=== PATIENT | male | born 1955 | race Caucasian/White ===

== ENCOUNTER 2018-01-25 22:42 | Inpatient (IN) ==
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
[2018-01-25] MEDS ORDERED: Diphtheria/Tetanus/Pertussis Vaccine Inj 0.5 ML Syringe IM ONE (23:04)
[2018-01-25] MEDS ORDERED: ceFAZolin 2 GM Premix Inj 2 GM/50 ML PIGGYBACK IV.SIG ONE (23:04)
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
[2018-01-25 23:25] LABS: Baso # (Auto) 0.1 th/mm3 (0.0-0.2); Baso % (Auto) 0.9 % (0.0-2.0); Eos # (Auto) 0.1 th/mm3 (0.0-0.4); Eos % (Auto) 1.3 % (0.0-4.0); Hematocrit 37.6 % (39.0-51.0); Hemoglobin 12.5 gm/dL (13.0-17.0); Lymph # (Auto) 3.8 th/mm3 (1.0-4.8); Lymph % (Auto) 37.6 % (9.0-44.0); Mean Corpuscular HGB Conc 33.4 % (32.0-36.0); Mean Corpuscular Hemoglobin 28.7 pg (27.0-34.0); Mean Platelet Volume 8.9 fL (7.0-11.0); Mono # (Auto) 0.8 th/mm3 (0.0-0.9); Mono % (Auto) 7.8 % (0.0-8.0); Neut # (Auto) 5.3 th/mm3 (1.8-7.7); Neut % (Auto) 52.4 % (16.0-70.0); Platelet Count 251 th/mm3 (150-450); Red Blood Count 4.37 mil/mm3 (4.50-5.90); Red Cell Distribution Width 13.3 % (11.6-17.2); White Blood Count 10.1 th/mm3 (4.0-11.0)
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
[2018-01-25] MEDS ORDERED: Morphine Inj 4 MG/ML Vial ONE (23:27)
[2018-01-25 23:32] LABS: Activated Partial Thrombo Time 22.3 sec (24.3-30.1); INR 1.2 Ratio; Prothrombin Time 11.7 sec (9.8-11.6)
[2018-01-25] MEDS ORDERED: Etomidate Inj 40 MG/20 ML Vial IV.PUSH ONE (23:39)
[2018-01-25] MEDS ORDERED: Succinylcholine Inj 200 MG/10 ML Vial ONE (23:39)
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
[2018-01-25] MEDS ORDERED: Atropine Inj 1 MG/10 ML Syringe ONE (23:43)
[2018-01-25] MEDS ORDERED: Etomidate Inj 20 MG/10 ML Ampul IV.PUSH ONE (23:45)
[2018-01-25] MEDS ORDERED: Succinylcholine Inj 200 MG/10 ML Vial IV.PUSH ONE (23:45)
[2018-01-25] MEDS ORDERED: Propofol Inj 500 MG/50 ML Vial ONE (23:48)
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
[2018-01-26] MEDS ORDERED: Morphine Inj 4 MG/ML Vial IV.PUSH SCH
[2018-01-26] MEDS ORDERED: Midazolam Inj 5 MG/ML 1 ML Vial IV.PUSH SCH
[2018-01-26] MEDS ORDERED: Lidocaine 1%/Epinephrine 1:100,000 Inj 30 ML Vial ONE (00:02)
[2018-01-26] MEDS ORDERED: Midazolam Inj 5 MG/ML 1 ML Vial ONE (00:06)
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
[2018-01-26] MEDS ORDERED: Sod Chloride 0.9% Inj 1,000 ML IV.CONT SCH (01:00)
[2018-01-26] MEDS: fentaNYL 10 mcg/mL Premix Drip 2,500 MCG/250 ML BAG IV.SIG PRN ×2 (01:08→21:19)
[2018-01-26] MEDS: Propofol 1000 mg/100 ml Inj 1,000 MG/100 ML BOTTLE IV.CONT PRN ×2 (01:08→08:35)
[2018-01-26] MEDS: Sod Chloride 0.9% Inj 1,000 ML IV.SIG SCH ×3 (01:16→22:10)
[2018-01-26 01:39] LABS: Bilirubin,Urine Negative (Negative); Clarity,Urine Clear (Clear); Color,Urine Yellow (Yellw/Straw); Glucose,Urine (UA) 50 mg/dL (Negative); Hyaline Casts,Urine 3 /lpf (0-3); Leukocyte Esterase,Urine Negative (Negative); Mucus,Urine Few /lpf (Occasional); Nitrite,Urine Negative (Negative); Specific Gravity,Urine 1.027 (1.002-1.035)
[2018-01-26 01:40] LABS: Amphetamine Screen,Urine Neg (Neg); Barbiturate Screen,Urine Neg (Neg); Cannabinoid Screen,Urine Neg (Neg); Cocaine Screen,Urine Pos (Neg)
[2018-01-26 01:47] LABS: Opiate Screen,Urine Pos (Neg)
[2018-01-26] MEDS: Pantoprazole Inj 40 MG Vial IV.PUSH SCH (01:50)
[2018-01-26 02:15] LABS: ABG Base Excess -0.6 mmol/L (-2-2); ABG PCO2 39 mmHg (38-42); ABG PO2 209 mmHg (61-120)
[2018-01-26] MEDS: Multivitamin Inj 10 ML, Thiamine Inj 100 MG, Folic Acid Inj 1 MG in Sodium Chlor 0.9% I... IV.SIG SCH (02:28)
[2018-01-26] MEDS ORDERED: Chlorhexidine Gluconate 2% 1 Pack (2 Cloths) TOPICAL PRN (04:00)
[2018-01-26] MEDS: Chlorhexidine Gluconate 2% 1 Pack (2 Cloths) TOPICAL SCH (05:25)
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
[2018-01-26] MEDS: Senna/Docusate Sodium 8.6/50 MG Tablet PO SCH ×2 (09:57→21:07)
[2018-01-26] MEDS: Chlorhexidine 0.12% Oral Kit 15 ML UDC OROPHARYNG SCH ×2 (09:57→21:07)
[2018-01-26] MEDS ORDERED: levETIRAcetam 500mg/100mL Inj 100 ML IV.SIG SCH (12:00)
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
--- NOTE | 2018-01-26 17:13 | P.PNNS ---
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 Cervical Collar Type [place] J Action Taken for Backboard C-Spine Maintained Facundo Scale Assessment Start: 01/25/18 23: 37 Freq: DOMINIC.DAILY@799&1999 Status: Active Protocol: Document 01/26/18 08:00 JL (Rec: 01/26/18 09:51 JL [id number]) Facundo Scale - For Predicting Pressure Sore Risk Sensory Perception Completely Limited Moisture Rarely Moist Activity Bedfast Mobililty Completely Immobile Nutrition Probably Inadequate Friction and Shear Potential Problem Total Score 11 Facundo Score Interpretation 16 or <16 At Risk for Skin Breakdown CC-Cardiovascular Assessment Start: 01/26/18 01: 58 Freq: DOMINIC.Q2H.E Status: Active Protocol: Document 01/26/18 00:30 KF (Rec: 01/26/18 02:20 KF [id number]) Cardiovascular Assessment Cardiovascular - Within Defined WDP Except Parameters Heart Sounds S1 & S2/Normal Bilateral Dorsalis Pedis Strength Normal Assessment Method Palpation Jugular Vein Distention No Capillary Refill < 2 Seconds Document 01/26/18 00:45 KF (Rec: 01/26/18 02:20 KF [id number]) Cardiovascular Assessment Cardiovascular - Within Defined WDP Except Parameters Heart Sounds S1 & S2/Normal Bilateral Dorsalis Pedis Strength Normal Assessment Method Palpation Jugular Vein Distention No Document 01/26/18 02:00 KF (Rec: 01/26/18 02:22 KF [id number]) Cardiovascular Assessment Cardiovascular - Within Defined WDP Except Parameters Heart Sounds S1 & S2/Normal Bilateral Dorsalis Pedis Strength Normal Assessment Method Palpation Jugular Vein Distention No Capillary Refill < 2 Seconds Document 01/26/18 04:00 MARY (Rec: 01/26/18 04:59 MARY [id number]) Cardiovascular Assessment Cardiovascular - Within Defined WDP Parameters Heart Sounds Regular Bilateral Dorsalis Pedis Strength Normal Assessment Method Palpation Jugular Vein Distention No Capillary Refill < 2 Seconds Document 01/26/18 06:00 KF (Rec: 01/26/18 06:03 KF [id number]) Cardiovascular Assessment Cardiovascular - Within Defined WDP Parameters Heart Sounds Regular Bilateral Dorsalis Pedis Strength Normal Assessment Method Palpation Jugular Vein Distention No Capillary Refill < 2 Seconds Document 01/26/18 08:00 JL (Rec: 01/26/18 09:51 JL [id number]) Cardiovascular Assessment Cardiovascular - Within Defined WDP Parameters Heart Sounds Regular Bilateral Dorsalis Pedis Strength Normal Assessment Method Palpation Jugular Vein Distention No Capillary Refill < 2 Seconds Document 01/26/18 10:00 JL (Rec: 01/26/18 10:23 JL [id number]) Cardiovascular Assessment Cardiovascular - Within Defined WDP Parameters Heart Sounds Regular Bilateral Dorsalis Pedis Strength Normal Assessment Method Palpation Jugular Vein Distention No Capillary Refill < 2 Seconds Document 01/26/18 12:00 LJN (Rec: 01/26/18 19:13 LJ [id number]) Cardiovascular Assessment Cardiovascular - Within Defined WDP Parameters Heart Sounds Regular Bilateral Dorsalis Pedis Strength Normal Assessment Method Palpation Jugular Vein Distention No Capillary Refill < 2 Seconds Document 01/26/18 14:00 LJN (Rec: 01/26/18 19:31 LJ [id number]) Cardiovascular Assessment Cardiovascular - Within Defined WDP Parameters Heart Sounds Regular Bilateral Dorsalis Pedis Strength Normal Assessment Method Palpation Jugular Vein Distention No Capillary Refill < 2 Seconds Document 01/26/18 16:00 LJN (Rec: 01/26/18 19:31 LJ [id number]) Cardiovascular Assessment Cardiovascular - Within Defined WDP Parameters Heart Sounds Regular Bilateral Dorsalis Pedis Strength Normal Assessment Method Palpation Jugular Vein Distention No Capillary Refill < 2 Seconds Document 01/26/18 18:00 LJN (Rec: 01/26/18 19:31 [facility] [id number]) Cardiovascular Assessment Cardiovascular - Within Defined WDP Parameters Heart Sounds Regular Bilateral Dorsalis Pedis Strength Normal Assessment Method Palpation Jugular Vein Distention No Capillary Refill < 2 Seconds Document 01/26/18 20:00 MARY (Rec: 01/26/18 21:56 MARY [id number]) Cardiovascular Assessment Cardiovascular - Within Defined WDP Parameters Heart Sounds Regular Bilateral Dorsalis Pedis Strength Normal Assessment Method Palpation Jugular Vein Distention No Capillary Refill < 2 Seconds CC-Gastrointestinal Assessment Start: 01/26/18 01: 58 Freq: DOMINIC.Q2H.E Status: Active Protocol: Document 01/26/18 00:30 KF (Rec: 01/26/18 02:20 KF [id number]) Gastrointestinal Assessment Gastroinstestinal Physical Assessment WDP Bowel Sounds RLQ: Active RUQ: Active LUQ: Active LLQ: Active Document 01/26/18 00:45 KF (Rec: 01/26/18 02:20 KF [id number]) Gastrointestinal Assessment Gastroinstestinal Physical Assessment WDP Except Bowel Sounds RLQ: Active RUQ: Active LUQ: Active LLQ: Active Document 01/26/18 02:00 KF (Rec: 01/26/18 02:22 KF [id number]) Gastrointestinal Assessment Gastroinstestinal Physical Assessment WDP Except Bowel Sounds RLQ: Active RUQ: Active LUQ: Active LLQ: Active Document 01/26/18 04:00 MARY (Rec: 01/26/18 05:00 MARY [id number]) Gastrointestinal Assessment Gastroinstestinal Physical Assessment WDP Bowel Sounds RLQ: Hyperactive RUQ: Hyperactive LUQ: Hyperactive LLQ: Hyperactive Bowel Pattern No Bowel Movement Nausea/Vomiting Presence None Document 01/26/18 06:00 KF (Rec: 01/26/18 06:03 KF [id number]) Gastrointestinal Assessment Gastroinstestinal Physical Assessment WDP Bowel Sounds RLQ: Active Hyperactive RUQ: Active Hyperactive LUQ: Active Hyperactive LLQ: Active Hyperactive Bowel Pattern No Bowel Movement Nausea/Vomiting Presence None Document 01/26/18 08:00 JL (Rec: 01/26/18 09:51 JL [id number]) Gastrointestinal Assessment Gastroinstestinal Physical Assessment WDP Bowel Sounds RLQ: Active RUQ: Active LUQ: Active LLQ: Active Abdomen Description Flat Non-Tender Bowel Pattern No Bowel Movement Nausea/Vomiting Presence None Document 01/26/18 10:00 JL (Rec: 01/26/18 10:23 JL [id number]) Gastrointestinal Assessment Gastroinstestinal Physical Assessment WDP Bowel Sounds RLQ: Active RUQ: Active LUQ: Active LLQ: Active Abdomen Description Flat Non-Tender Bowel Pattern No Bowel Movement Nausea/Vomiting Presence None Document 01/26/18 12:00 LJN (Rec: 01/26/18 19:13 LJN [id number]) Gastrointestinal Assessment Gastroinstestinal Physical Assessment WDP Bowel Sounds RLQ: Active Hyperactive RUQ: Active Hyperactive LUQ: Active Hyperactive LLQ: Active Hyperactive Abdomen Description Flat Non-Tender Bowel Pattern No Bowel Movement Nausea/Vomiting Presence None Document 01/26/18 14:00 LJN (Rec: 01/26/18 19:31 LJN [id number]) Gastrointestinal Assessment Gastroinstestinal Physical Assessment WDP Bowel Sounds RLQ: Active Hyperactive RUQ: Active Hyperactive LUQ: Active Hyperactive LLQ: Active Hyperactive Abdomen Description Flat Non-Tender Bowel Pattern No Bowel Movement Nausea/Vomiting Presence None Document 01/26/18 16:00 LJN (Rec: 01/26/18 19:31 LJ [id number]) Gastrointestinal Assessment Gastroinstestinal Physical Assessment WDP Bowel Sounds RLQ: Active Hyperactive RUQ: Active Hyperactive LUQ: Active Hyperactive LLQ: Active Hyperactive Abdomen Description Flat Non-Tender Bowel Pattern No Bowel Movement Nausea/Vomiting Presence None Document 01/26/18 18:00 LJN (Rec: 01/26/18 19:31 LJN [id number]) Gastrointestinal Assessment Gastroinstestinal Physical Assessment WDP Bowel Sounds RLQ: Active Hyperactive RUQ: Active Hyperactive LUQ: Active Hyperactive LLQ: Active Hyperactive Abdomen Description Flat Non-Tender Bowel Pattern No Bowel Movement Nausea/Vomiting Presence None Document 01/26/18 20:00 MARY (Rec: 01/26/18 21:56 MARY [id number]) Gastrointestinal Assessment Gastroinstestinal Physical Assessment WDP Bowel Sounds RLQ: Active RUQ: Active LUQ: Active LLQ: Active Abdomen Description Flat Non-Tender Bowel Pattern No Bowel Movement Nausea/Vomiting Presence None CC-Genitourinary Assessment Start: 01/26/18 01: 58 Freq: DOMINIC.Q2H.E Status: Active Protocol: Document 01/26/18 00:30 KF (Rec: 01/26/18 02:20 KF [id number]) Genitourinary Assessment Genitourinary - Within Defined WDP Parameters Document 01/26/18 00:45 KF (Rec: 01/26/18 02:20 KF [id number]) Genitourinary Assessment Genitourinary - Within Defined WDP Except Parameters Voiding Method Indwelling Catheter Urine Collection Device Bladder Distention None Urine Characteristics Clear Urine Color Yellow Document 01/26/18 02:00 KF (Rec: 01/26/18 02:22 KF [id number]) Genitourinary Assessment Genitourinary - Within Defined WDP Except Parameters Voiding Method Indwelling Catheter Urine Collection Device Bladder Distention None Urine Characteristics Clear Urine Color Yellow Document 01/26/18 04:00 MARY (Rec: 01/26/18 05:40 MARY [id number]) Genitourinary Assessment Genitourinary - Within Defined WDP Except Parameters Voiding Method Indwelling Catheter Urine Collection Device Bladder Distention None Urine Characteristics Clear Urine Color Yellow Document 01/26/18 06:00 KF (Rec: 01/26/18 06:03 KF [id number]) Genitourinary Assessment Genitourinary - Within Defined WDP Except Parameters Voiding Method Indwelling Catheter Urine Collection Device Bladder Distention None Urine Characteristics Clear Urine Color Yellow Document 01/26/18 08:00 JL (Rec: 01/26/18 09:51 JL [id number]) Genitourinary Assessment Genitourinary - Within Defined WDP Except Parameters Voiding Method Indwelling Catheter Urine Collection Device Bladder Distention None Urine Characteristics Clear Urine Color Yellow Document 01/26/18 10:00 JL (Rec: 01/26/18 10:23 JL [id number]) Genitourinary Assessment Genitourinary - Within Defined WDP Except Parameters Voiding Method Indwelling Catheter Urine Collection Device Bladder Distention None Urine Characteristics Clear Urine Color Yellow Document 01/26/18 12:00 LJN (Rec: 01/26/18 19:13 LJN [id number]) Genitourinary Assessment Genitourinary - Within Defined WDP Except Parameters Voiding Method Indwelling Catheter Urine Collection Device Bladder Distention None Urine Characteristics Clear Urine Color Yellow Document 01/26/18 14:00 LJN (Rec: 01/26/18 19:31 LJN [id number]) Genitourinary Assessment Genitourinary - Within Defined WDP Except Parameters Voiding Method Indwelling Catheter Urine Collection Device Bladder Distention None Urine Characteristics Clear Urine Color Yellow Document 01/26/18 16:00 LJN (Rec: 01/26/18 19:31 LJN [id number]) Genitourinary Assessment Genitourinary - Within Defined WDP Except Parameters Voiding Method Indwelling Catheter Urine Collection Device Bladder Distention None Urine Characteristics Clear Urine Color Yellow Document 01/26/18 18:00 LJN (Rec: 01/26/18 19:31 LJN [id number]) Genitourinary Assessment Genitourinary - Within Defined WDP Except Parameters Voiding Method Indwelling Catheter Urine Collection Device Bladder Distention None Urine Characteristics Clear Urine Color Yellow Document 01/26/18 20:00 MARY (Rec: 01/26/18 21:56 MARY [id number]) Genitourinary Assessment Genitourinary - Within Defined WDP Except Parameters Voiding Method Indwelling Catheter Urine Collection Device Bladder Distention None Urine Characteristics Cloudy Urine Color Dark Yellow CC-HEENT Assessment Start: 01/26/18 01: 58 Freq: DOMINIC.Q2H.E Status: Active Protocol: Document 01/26/18 00:30 KF (Rec: 01/26/18 02:20 KF [id number]) HEENT Assessment HEENT - Within Defined Parameters WDP Except Signs & Symptoms Head/Facial Injury Neck Discomfort Swallowing Difficulty Head & Neck Movement Limited ROM Pain with Movement Mucous Membranes Drooling Teeth Condition Broken Tooth/Teeth Decayed Tooth/Teeth Document 01/26/18 00:45 KF (Rec: 01/26/18 02:20 KF [id number]) HEENT Assessment HEENT - Within Defined Parameters WDP Except Signs & Symptoms Head/Facial Injury Head & Neck Movement Limited ROM Document 01/26/18 02:00 KF (Rec: 01/26/18 02:22 KF [id number]) HEENT Assessment HEENT - Within Defined Parameters WDP Except Signs & Symptoms Head/Facial Injury Head & Neck Movement Limited ROM Mucous Membranes Drooling Teeth Condition Broken Tooth/Teeth Decayed Tooth/Teeth Document 01/26/18 06:00 KF (Rec: 01/26/18 06:03 KF [id number]) HEENT Assessment HEENT - Within Defined Parameters WDP Except Signs & Symptoms Head/Facial Injury Head & Neck Movement Limited ROM Teeth Condition Broken Tooth/Teeth Decayed Tooth/Teeth Document 01/26/18 08:00 JL (Rec: 01/26/18 09:51 JL [id number]) HEENT Assessment HEENT - Within Defined Parameters WDP Except Signs & Symptoms Head/Facial Injury Head & Neck Movement Limited ROM Teeth Condition Broken Tooth/Teeth Decayed Tooth/Teeth Document 01/26/18 10:00 JL (Rec: 01/26/18 10:23 JL [id number]) HEENT Assessment HEENT - Within Defined Parameters WDP Except Signs & Symptoms Head/Facial Injury Head & Neck Movement Limited ROM Teeth Condition Broken Tooth/Teeth Decayed Tooth/Teeth Document 01/26/18 12:00 LJN (Rec: 01/26/18 19:13 LJN [id number]) HEENT Assessment HEENT - Within Defined Parameters WDP Except Signs & Symptoms Head/Facial Injury Head & Neck Movement Limited ROM Mucous Membranes Drooling Teeth Condition Broken Tooth/Teeth Decayed Tooth/Teeth Document 01/26/18 14:00 TREE (Rec: 01/26/18 19:31 LJN [id number]) HEENT Assessment HEENT - Within Defined Parameters WDP Except Signs & Symptoms Head/Facial Injury Head & Neck Movement Limited ROM Mucous Membranes Drooling Teeth Condition Broken Tooth/Teeth Decayed Tooth/Teeth Document 01/26/18 16:00 LJN (Rec: 01/26/18 19:31 LJN [id number]) HEENT Assessment HEENT - Within Defined Parameters WDP Except Signs & Symptoms Head/Facial Injury Head & Neck Movement Limited ROM Mucous Membranes Drooling Teeth Condition Broken Tooth/Teeth Decayed Tooth/Teeth Document 01/26/18 18:00 LJN (Rec: 01/26/18 19:31 [facility] [id number]) HEENT Assessment HEENT - Within Defined Parameters WDP Except Signs & Symptoms Head/Facial Injury Head & Neck Movement Limited ROM Mucous Membranes Drooling Teeth Condition Broken Tooth/Teeth Decayed Tooth/Teeth Document 01/26/18 20:00 MARY (Rec: 01/26/18 21:56 MARY [id number]) HEENT Assessment HEENT - Within Defined Parameters WDP Except Signs & Symptoms Head/Facial Injury Head & Neck Movement Limited ROM Mucous Membranes Moist [place] CC-Integumentary Assessment Start: 01/26/18 01: 58 Freq: DOMINIC.Q2H.E Status: Active Protocol: Document 01/26/18 00:45 KF (Rec: 01/26/18 02:20 KF [id number]) Integumentary Assessment Integumentary - Within Defined WDP Except Parameters Temperature Warm Moisture Moist Texture Intact Fragile Color [place] Normal for Ethnicity Right Hip Wound Type Abrasion Left Elbow Wound Type Abrasion Right Forehead Wound Type Traumatic Wound Midline Chin Wound Type Traumatic Wound Right Neck Wound Type Traumatic Wound Document 01/26/18 02:00 KF (Rec: 01/26/18 02:22 KF [id number]) Integumentary Assessment Integumentary - Within Defined WDP Except Parameters Temperature Warm Moisture Moist Texture Intact Fragile Color [place] Normal for Ethnicity Right Hip Wound Type Abrasion Left Elbow Wound Type Abrasion Right Forehead Wound Type Traumatic Wound Midline Chin Wound Type Traumatic Wound Right Neck Wound Type Traumatic Wound Document 01/26/18 06:00 KF (Rec: 01/26/18 06:03 KF [id number]) Integumentary Assessment Integumentary - Within Defined WDP Except Parameters Temperature Warm Moisture Moist Texture Intact Fragile Color [place] Normal for Ethnicity Right Hip Wound Type Abrasion Left Elbow Wound Type Abrasion Right Forehead Wound Type Traumatic Wound Midline Chin Wound Type Traumatic Wound Right Neck Wound Type Traumatic Wound Document 01/26/18 08:00 JL (Rec: 01/26/18 09:51 JL [id number]) Integumentary Assessment Integumentary - Within Defined WDP Except Parameters Temperature Warm Moisture Moist Turgor Elastic Texture Intact Fragile Color Normal for Ethnicity Left Flank Wound Type Abrasion Wound Dressing Status Open to Air Right Hip Wound Type Abrasion Left Elbow Wound Type Abrasion Right Forehead Wound Type Traumatic Wound Midline Chin Wound Type Traumatic Wound Wound Dressing Status Reinforced Right Neck Wound Type Traumatic Wound Wound Dressing Status Open to Air Document 01/26/18 10:00 JL (Rec: 01/26/18 10:23 JL [id number]) Integumentary Assessment Integumentary - Within Defined WDP Except Parameters Temperature Warm Moisture Moist Turgor Elastic Texture Intact Fragile Color Normal for Ethnicity Left Flank Wound Type Abrasion Wound Dressing Status Open to Air Left Elbow Wound Type Abrasion Right Forehead Wound Type Traumatic Wound Midline Chin Wound Type Traumatic Wound Wound Dressing Status Reinforced Right Neck Wound Type Traumatic Wound Wound Dressing Status Open to Air Document 01/26/18 12:00 NADIRAN (Rec: 01/26/18 19:13 NADIRAN [id number]) Integumentary Assessment Integumentary - Within Defined WDP Except Parameters Temperature Warm Moisture Moist Turgor Elastic Texture Intact Fragile Color Normal for Ethnicity Left Flank Wound Type Abrasion Wound Dressing Status Open to Air Left Elbow Wound Type Abrasion Right Forehead Wound Type Traumatic Wound Midline Chin Wound Type Traumatic Wound Wound Dressing Status Reinforced Right Neck Wound Type Traumatic Wound Wound Dressing Status Open to Air 01/26/18 19:02 Nurse Note by Asia Denney Multiple areas of abrasions and lacerations cleaned and open to air. No drainage noted. Initialized on 01/26/18 19:02 - END OF NOTE Document 01/26/18 14:00 LJMonika (Rec: 01/26/18 19:31 TREE [id number]) Integumentary Assessment Integumentary - Within Defined WDP Except Parameters Temperature Warm Moisture Moist Turgor Elastic Texture Intact Fragile Color Normal for Ethnicity Left Flank Wound Type Abrasion Wound Dressing Status Open to Air Left Elbow Wound Type Abrasion Right Forehead Wound Type Traumatic Wound Midline Chin Wound Type Traumatic Wound Wound Dressing Status Reinforced Right Neck Wound Type Traumatic Wound Wound Dressing Status Open to Air Document 01/26/18 16:00 LJN (Rec: 01/26/18 19:31 LJN [id number]) Integumentary Assessment Integumentary - Within Defined WDP Except Parameters Temperature Warm Moisture Moist Turgor Elastic Texture Intact Fragile Color Normal for Ethnicity Left Flank Wound Type Abrasion Wound Dressing Status Open to Air Left Elbow Wound Type Abrasion Right Forehead Wound Type Traumatic Wound Midline Chin Wound Type Traumatic Wound Wound Dressing Status Reinforced Right Neck Wound Type Traumatic Wound Wound Dressing Status Open to Air Document 01/26/18 18:00 LJN (Rec: 01/26/18 19:31 LJN [id number]) Integumentary Assessment Integumentary - Within Defined WDP Except Parameters Temperature Warm Moisture Moist Turgor Elastic Texture Intact Fragile Color Normal for Ethnicity Left Flank Wound Type Abrasion Wound Dressing Status Open to Air Left Elbow Wound Type Abrasion Right Forehead Wound Type Traumatic Wound Midline Chin Wound Type Traumatic Wound Wound Dressing Status Reinforced Right Neck Wound Type Traumatic Wound Wound Dressing Status Open to Air Document 01/26/18 20:00 MARY (Rec: 01/26/18 21:56 MARY [id number]) Integumentary Assessment Integumentary - Within Defined WDP Except Parameters Temperature Warm Moisture Moist Turgor Elastic Color [place] Left Flank Wound Type Abrasion Wound Dressing Status Open to Air Left Elbow Wound Type Abrasion Right Forehead Wound Type Traumatic Wound Midline Chin Wound Type Traumatic Wound Wound Dressing Status Dry & Intact Right Neck Wound Type Traumatic Wound Wound Dressing Status Open to Air CC-Musculoskeletal Assessment Start: 01/26/18 01: 58 Freq: DOMINIC.Q2H.E Status: Active Protocol: Document 01/26/18 00:45 KF (Rec: 01/26/18 02:20 KF [id number]) Musculoskeletal Assessment Musculoskeletal - Within Defined WDP Except Parameter Document 01/26/18 02:00 KF (Rec: 01/26/18 02:22 KF [id number]) Musculoskeletal Assessment Musculoskeletal - Within Defined WDP Except Parameter Document 01/26/18 06:00 KF (Rec: 01/26/18 06:03 KF [id number]) Musculoskeletal Assessment Musculoskeletal - Within Defined WDP Except Parameter Document 01/26/18 08:00 JL (Rec: 01/26/18 09:51 JL [id number]) Musculoskeletal Assessment Musculoskeletal - Within Defined Unable to Assess Parameter Document 01/26/18 10:00 JL (Rec: 01/26/18 10:23 JL [id number]) Musculoskeletal Assessment Musculoskeletal - Within Defined Unable to Assess Parameter Document 01/26/18 12:00 LJN (Rec: 01/26/18 19:13 LJN [id number]) Musculoskeletal Assessment Musculoskeletal - Within Defined WDP Parameter Document 01/26/18 14:00 LJN (Rec: 01/26/18 19:31 LJN [id number]) Musculoskeletal Assessment Musculoskeletal - Within Defined WDP Parameter Document 01/26/18 16:00 LJN (Rec: 01/26/18 19:31 LJN [id number]) Musculoskeletal Assessment Musculoskeletal - Within Defined WDP Parameter Document 01/26/18 18:00 LJN (Rec: 01/26/18 19:31 LJN [id number]) Musculoskeletal Assessment Musculoskeletal - Within Defined WDP Parameter Document 01/26/18 20:00 MARY (Rec: 01/26/18 21:56 MARY [id number]) Musculoskeletal Assessment Musculoskeletal - Within Defined WDP Parameter CC-Neurological Assessment Start: 01/26/18 01: 58 Freq: DOMINIC.Q2H.E Status: Active Protocol: Document 01/26/18 00:30 KF (Rec: 01/26/18 02:20 KF [id number]) Neurological Assessment Neurological - Within Defined Parameters WDP Except Eye Opening Spontaneous Verbal Response Words Motor Response Localizing [place] Coma Scale Total 12 Level of Consciousness Stuporous Arousable To Verbal Noxious Patient Orientation Person Comprehension Ability Moderate Impairment Speech Clarity Garbled Fluidity of Speech Difficulty Finding Words Speech Pattern Poor Articulation Tongue Position (CN XII) Midline Bilateral Shape Round Size (mm) 1 Reaction Constricted Right Upper Extremity Neuro Movement Assessment Withdraws to Pain Left Upper Extremity Neuro Movement Assessment Localizes to Pain Bilateral Lower Extremity Neuro Movement Assessment To Command Spontaneously Purposeful Right Upper Extremity Strength 1 Tone Flaccid Left Upper Extremity Strength 2 Tone Flaccid Bilateral Lower Extremity Strength 5 Tone Normal Upper Extremity Drift Bilateral Corneal Reflex Present Bilateral Cough Reflex Present Gag Reflex Present Babinski Reflex Present Bilateral Document 01/26/18 00:45 KF (Rec: 01/26/18 02:20 KF [id number]) Neurological Assessment Neurological - Within Defined Parameters WDP Except Eye Opening None Verbal Response None Motor Response Localizing [place] Coma Scale Total 7 Level of Consciousness Sedated Arousable To Deep Tactile Comprehension Ability No Impairment Speech Clarity Artificially ventilated Tongue Position (CN XII) Midline Bilateral Shape Round Size (mm) 1 Reaction Constricted Bilateral Lower Extremity Neuro Movement Assessment To Command Spontaneously Purposeful Bilateral Upper Extremity Neuro Movement Assessment Localizes to Pain Right Upper Extremity Strength 1 Tone Flaccid Left Upper Extremity Strength 1 Tone Flaccid Bilateral Lower Extremity Strength 2 Tone Normal Upper Extremity Drift Bilateral Corneal Reflex Present Bilateral Gag Reflex Present Babinski Reflex Present Bilateral Document 01/26/18 02:00 KF (Rec: 01/26/18 02:22 KF [id number]) Neurological Assessment Neurological - Within Defined Parameters WDP Except Eye Opening None Verbal Response None Motor Response Localizing [place] Coma Scale Total 7 Level of Consciousness Sedated Arousable To Deep Tactile Patient Orientation Person Comprehension Ability No Impairment Speech Clarity Artificially ventilated Speech Pattern Artificially Ventilated Tongue Position (CN XII) Midline Bilateral Shape Round Size (mm) 1 Reaction Constricted Right Upper Extremity Neuro Movement Assessment None Left Upper Extremity Neuro Movement Assessment Withdraws to Pain Bilateral Lower Extremity Neuro Movement Assessment Withdraws to Pain Right Upper Extremity Strength 1 Tone Flaccid Left Upper Extremity Strength 1 Tone Flaccid Bilateral Lower Extremity Strength 2 Tone Normal Upper Extremity Drift Bilateral Corneal Reflex Present Bilateral Cough Reflex Present Gag Reflex Present Babinski Reflex Present Bilateral Document 01/26/18 06:00 KF (Rec: 01/26/18 06:03 KF [id number]) Neurological Assessment Neurological - Within Defined Parameters WDP Except Eye Opening None Verbal Response None Motor Response Localizing [place] Coma Scale Total 7 Level of Consciousness Sedated Arousable To Deep Tactile Patient Orientation Unable to Assess Comprehension Ability No Impairment Speech Clarity Artificially ventilated Speech Pattern Artificially Ventilated Tongue Position (CN XII) Midline Bilateral Shape Round Size (mm) 2 Reaction Questionable Right Upper Extremity Neuro Movement Assessment None Left Upper Extremity Neuro Movement Assessment None Bilateral Lower Extremity Neuro Movement Assessment Localizes to Pain Right Upper Extremity Strength 0 Tone Flaccid Left Upper Extremity Strength 0 Tone Flaccid Bilateral Lower Extremity Strength 3 Tone Normal Upper Extremity Drift Bilateral Corneal Reflex Present Bilateral Cough Reflex Present Gag Reflex Present Babinski Reflex Present Bilateral Document 01/26/18 08:00 JL (Rec: 01/26/18 09:51 JL [id number]) Neurological Assessment Neurological - Within Defined Parameters WDP Except Eye Opening None Verbal Response None Motor Response Localizing Tamie Coma Scale Total 7 Level of Consciousness Sedated Arousable To Deep Tactile Patient Orientation Unable to Assess Comprehension Ability No Impairment Speech Clarity Artificially ventilated Speech Pattern Artificially Ventilated Bilateral Shape Round Size (mm) 2 Reaction Questionable Right Upper Extremity Neuro Movement Assessment None Left Upper Extremity Neuro Movement Assessment None Bilateral Lower Extremity Neuro Movement Assessment Spontaneously Localizes to Pain Right Upper Extremity Strength 0 Tone Flaccid Left Upper Extremity Strength 0 Tone Flaccid Bilateral Lower Extremity Strength 3 Tone Normal Gag Reflex Present Document 01/26/18 10:00 JL (Rec: 01/26/18 10:23 JL [id number]) Neurological Assessment Neurological - Within Defined Parameters WDP Except Eye Opening None Verbal Response None Motor Response Localizing Tamie Coma Scale Total 7 Level of Consciousness Sedated Arousable To Deep Tactile Patient Orientation Unable to Assess Comprehension Ability Severe Impairment Speech Clarity Artificially ventilated Speech Pattern Artificially Ventilated Bilateral Shape Round Size (mm) 2 Reaction Questionable Right Upper Extremity Neuro Movement Assessment None Left Upper Extremity Neuro Movement Assessment None Bilateral Lower Extremity Neuro Movement Assessment Spontaneously Localizes to Pain Right Upper Extremity Strength 0 Tone Flaccid Left Upper Extremity Strength 0 Tone Flaccid Bilateral Lower Extremity Strength 3 Tone Normal Upper Extremity Drift Bilateral Gag Reflex Present Document 01/26/18 12:00 LJN (Rec: 01/26/18 19:13 N [id number]) Neurological Assessment Neurological - Within Defined Parameters WDP Except Eye Opening To sound Verbal Response None Motor Response Obey commands [place] Coma Scale Total 10 Level of Consciousness Alert Arousable To Verbal Patient Orientation Unable to Assess Comprehension Ability Mild Impairment Speech Clarity Artificially ventilated Fluidity of Speech Difficulty Finding Words Speech Pattern Artificially Ventilated Tongue Position (CN XII) Midline Bilateral Shape Round Size (mm) 2 Reaction Questionable Right Upper Extremity Neuro Movement Assessment To Command Left Upper Extremity Neuro Movement Assessment To Command Bilateral Lower Extremity Neuro Movement Assessment To Command Spontaneously Right Upper Extremity Strength 0 Tone Flaccid Left Upper Extremity Strength 3 Tone Normal Bilateral Lower Extremity Strength 3 Tone Normal Upper Extremity Drift Bilateral Corneal Reflex Present Bilateral Cough Reflex Present Gag Reflex Present Babinski Reflex Present Bilateral Document 01/26/18 14:00 LJN (Rec: 01/26/18 19:31 LJN [id number]) Neurological Assessment Neurological - Within Defined Parameters WDP Except Eye Opening To sound Verbal Response None Motor Response Obey commands Tamie Coma Scale Total 10 Level of Consciousness Alert Arousable To Verbal Patient Orientation Unable to Assess Comprehension Ability Mild Impairment Speech Clarity Artificially ventilated Fluidity of Speech Difficulty Finding Words Speech Pattern Artificially Ventilated Tongue Position (CN XII) Midline Bilateral Shape Round Size (mm) 2 Reaction Questionable Right Upper Extremity Neuro Movement Assessment To Command Left Upper Extremity Neuro Movement Assessment To Command Bilateral Lower Extremity Neuro Movement Assessment To Command Spontaneously Right Upper Extremity Strength 0 Tone Flaccid Left Upper Extremity Strength 3 Tone Normal Bilateral Lower Extremity Strength 3 Tone Normal Upper Extremity Drift Bilateral Corneal Reflex Present Bilateral Cough Reflex Present Gag Reflex Present Babinski Reflex Present Bilateral Document 01/26/18 16:00 [facility] (Rec: 01/26/18 19:31 [facility] [id number]) Neurological Assessment Neurological - Within Defined Parameters WDP Except Eye Opening To sound Verbal Response None Motor Response Obey commands [place] Coma Scale Total 10 Level of Consciousness Alert Arousable To Verbal Patient Orientation Unable to Assess Comprehension Ability Mild Impairment Speech Clarity Artificially ventilated Fluidity of Speech Difficulty Finding Words Speech Pattern Artificially Ventilated Tongue Position (CN XII) Midline Bilateral Shape Round Size (mm) 2 Reaction Questionable Right Upper Extremity Neuro Movement Assessment To Command Left Upper Extremity Neuro Movement Assessment To Command Bilateral Lower Extremity Neuro Movement Assessment To Command Spontaneously Right Upper Extremity Strength 0 Tone Flaccid Left Upper Extremity Strength 3 Tone Normal Bilateral Lower Extremity Strength 3 Tone Normal Upper Extremity Drift Bilateral Corneal Reflex Present Bilateral Cough Reflex Present Gag Reflex Present Babinski Reflex Present Bilateral Document 01/26/18 18:00 [facility] (Rec: 01/26/18 19:31 [facility] [id number]) Neurological Assessment Neurological - Within Defined Parameters WDP Except Eye Opening To sound Verbal Response None Motor Response Obey commands Tamie Coma Scale Total 10 Level of Consciousness Alert Arousable To Verbal Patient Orientation Unable to Assess Comprehension Ability Mild Impairment Speech Clarity Artificially ventilated Fluidity of Speech Difficulty Finding Words Speech Pattern Artificially Ventilated Tongue Position (CN XII) Midline Bilateral Shape Round Size (mm) 2 Reaction Questionable Right Upper Extremity Neuro Movement Assessment To Command Left Upper Extremity Neuro Movement Assessment To Command Bilateral Lower Extremity Neuro Movement Assessment To Command Spontaneously Right Upper Extremity Strength 0 Tone Flaccid Left Upper Extremity Strength 3 Tone Normal Bilateral Lower Extremity Strength 3 Tone Normal Upper Extremity Drift Bilateral Corneal Reflex Present Bilateral Cough Reflex Present Gag Reflex Present Babinski Reflex Present Bilateral Document 01/26/18 20:00 [facility] (Rec: 01/26/18 21:56 [facility] [id number]) Neurological Assessment Neurological - Within Defined Parameters WDP Except Eye Opening Spontaneous Verbal Response None Motor Response Obey commands Tamie Coma Scale Total 11 Level of Consciousness Sedated Arousable To Verbal Patient Orientation Unable to Assess Comprehension Ability Mild Impairment Speech Clarity Artificially ventilated Unable to Assess Speech Pattern Artificially Ventilated Tongue Position (CN XII) Midline Bilateral Shape Round Size (mm) 2 Reaction Brisk Right Upper Extremity Neuro Movement Assessment None Left Upper Extremity Neuro Movement Assessment None Bilateral Lower Extremity Neuro Movement Assessment To Command Spontaneously Purposeful Right Upper Extremity Strength 0 Tone Flaccid Left Upper Extremity Strength 0 Tone Flaccid Bilateral Lower Extremity Strength 5 Tone Normal Upper Extremity Drift None Corneal Reflex Present Bilateral Cough Reflex Present Gag Reflex Present Babinski Reflex Present Bilateral CC-Psychosocial Assessment Start: 01/26/18 01: 58 Freq: DOMINIC.Q12.E Status: Active Protocol: Document 01/26/18 00:30 KF (Rec: 01/26/18 02:20 KF [id number]) Psychosocial Mood/Behavior Type Displayed Aggressive Anxious Other Psychosocial Symptoms Confusion Coping/Decision Making Ability Dependent/Unable Document 01/26/18 00:45 KF (Rec: 01/26/18 02:20 KF [id number]) Psychosocial Mood/Behavior Type Displayed Intubated/Sedated Coping/Decision Making Ability Unable Document 01/26/18 02:00 KF (Rec: 01/26/18 02:22 KF [id number]) Psychosocial Mood/Behavior Type Displayed Intubated/Sedated Other Psychosocial Symptoms Confusion Coping/Decision Making Ability Unable Document 01/26/18 06:00 KF (Rec: 01/26/18 06:07 KF [id number]) Psychosocial Mood/Behavior Type Displayed Intubated/Sedated Other Psychosocial Symptoms Confusion Coping/Decision Making Ability Unable Document 01/26/18 18:00 LJN (Rec: 01/26/18 19:36 LJN [id number]) Psychosocial Mood/Behavior Type Displayed Intubated/Sedated Other Psychosocial Symptoms Confusion Coping/Decision Making Ability Unable CC-Reproductive Assessment Start: 01/26/18 01: 58 Freq: DOMINIC.Q2H.E Status: Active Protocol: Document 01/26/18 02:00 KF (Rec: 01/26/18 02:24 KF [id number]) Reproductive Assessment Male Reproductive - Within Defined WDP Parameters Document 01/26/18 04:00 MARY (Rec: 01/26/18 04:58 MARY [id number]) Reproductive Assessment Male Reproductive - Within Defined WDP Parameters Document 01/26/18 06:00 KF (Rec: 01/26/18 06:03 KF [id number]) Reproductive Assessment Male Reproductive - Within Defined WDP Parameters Document 01/26/18 08:00 JL (Rec: 01/26/18 09:51 JL [id number]) Reproductive Assessment Male Reproductive - Within Defined WDP Parameters Document 01/26/18 10:00 JL (Rec: 01/26/18 10:23 JL [id number]) Reproductive Assessment Male Reproductive - Within Defined WDP Parameters Document 01/26/18 12:00 LJN (Rec: 01/26/18 19:13 LJN [id number]) Reproductive Assessment Male Reproductive - Within Defined WDP Parameters Document 01/26/18 14:00 LJN (Rec: 01/26/18 19:31 LJN [id number]) Reproductive Assessment Male Reproductive - Within Defined WDP Parameters Document 01/26/18 16:00 LJN (Rec: 01/26/18 19:31 LJN [id number]) Reproductive Assessment Male Reproductive - Within Defined WDP Parameters Document 01/26/18 18:00 LJN (Rec: 01/26/18 19:31 LJN [id number]) Reproductive Assessment Male Reproductive - Within Defined WDP Parameters Document 01/26/18 20:00 MARY (Rec: 01/26/18 21:56 MARY [id number]) Reproductive Assessment Male Reproductive - Within Defined WDP Parameters CC-Respiratory Assessment Start: 01/26/18 01: 58 Freq: DOMINIC.Q2H.E Status: Active Protocol: Document 01/26/18 00:30 KF (Rec: 01/26/18 02:20 KF [id number]) Respiratory Assessment Respiratory - Within Defined Parameters WDP Except Effort Labored Agonal Depth Shallow Respiratory Pattern Bradypnea Apnea Chest Shape Normal Trachea Description Midline Cough Description Productive Sputum Amount Large Color Aubrey Red Blood Consistency Thick Document 01/26/18 00:45 KF (Rec: 01/26/18 02:20 KF [id number]) Respiratory Assessment Respiratory - Within Defined Parameters WDP Except Effort Spontaneous Mechanically Ventilated Depth Normal Respiratory Pattern Normal Chest Shape Normal Trachea Description Midline Cough Description Productive Sputum Amount Small Color Clear Rust Blue Document 01/26/18 02:00 KF (Rec: 01/26/18 02:22 KF [id number]) Respiratory Assessment Respiratory - Within Defined Parameters WDP Except Effort Spontaneous Mechanically Ventilated Depth Normal Respiratory Pattern Normal Chest Shape Normal Trachea Description Midline Cough Description Productive Sputum Amount Small Color Clear Rust Blue Consistency Thick Document 01/26/18 04:00 MARY (Rec: 01/26/18 04:57 MARY [id number]) Respiratory Assessment Respiratory - Within Defined Parameters WDP Except Effort Mechanically Ventilated Depth Normal Respiratory Pattern Normal Chest Shape Normal Trachea Description Midline Sputum Amount None Document 01/26/18 06:00 KF (Rec: 01/26/18 06:03 KF [id number]) Respiratory Assessment Respiratory - Within Defined Parameters WDP Except Effort Mechanically Ventilated Depth Normal Respiratory Pattern Normal Chest Shape Normal Trachea Description Midline Cough Description Productive Sputum Amount None Color Clear Rust Blue Consistency Thick Document 01/26/18 08:00 JL (Rec: 01/26/18 09:51 JL [id number]) Respiratory Assessment Respiratory - Within Defined Parameters WDP Except Effort Mechanically Ventilated Depth Normal Respiratory Pattern Normal Chest Shape Normal Trachea Description Midline Throughout Breath Sounds Diminished Cough Description Non-Productive Sputum Amount None Document 01/26/18 10:00 JL (Rec: 01/26/18 10:23 JL [id number]) Respiratory Assessment Respiratory - Within Defined Parameters WDP Except Effort Mechanically Ventilated Depth Normal Respiratory Pattern Normal Chest Shape Normal Trachea Description Midline Throughout Breath Sounds Diminished Cough Description Non-Productive Sputum Amount None Document 01/26/18 12:00 LJN (Rec: 01/26/18 19:13 LJN [id number]) Respiratory Assessment Respiratory - Within Defined Parameters WDP Except Effort Mechanically Ventilated Depth Normal Respiratory Pattern Normal Chest Shape Normal Trachea Description Midline Throughout Breath Sounds Clear Diminished Cough Description Non-Productive Sputum Amount None Color Clear Rust Blue Consistency Thick Document 01/26/18 14:00 LJN (Rec: 01/26/18 19:31 LJN [id number]) Respiratory Assessment Respiratory - Within Defined Parameters WDP Except Effort Mechanically Ventilated Depth Normal Respiratory Pattern Normal Chest Shape Normal Trachea Description Midline Throughout Breath Sounds Clear Diminished Cough Description Non-Productive Sputum Amount None Color Clear Rust Blue Consistency Thick Document 01/26/18 16:00 LJN (Rec: 01/26/18 19:31 LJN [id number]) Respiratory Assessment Respiratory - Within Defined Parameters WDP Except Effort Mechanically Ventilated Depth Normal Respiratory Pattern Normal Chest Shape Normal Trachea Description Midline Throughout Breath Sounds Clear Diminished Cough Description Non-Productive Sputum Amount None Color Clear Rust Blue Consistency Thick Document 01/26/18 18:00 LJN (Rec: 01/26/18 19:31 LJN [id number]) Respiratory Assessment Respiratory - Within Defined Parameters WDP Except Effort Mechanically Ventilated Depth Normal Respiratory Pattern Normal Chest Shape Normal Trachea Description Midline Throughout Breath Sounds Clear Diminished Cough Description Non-Productive Sputum Amount None Color Clear Rust Blue Consistency Thick Document 01/26/18 20:00 MARY (Rec: 01/26/18 21:56 MARY [id number]) Respiratory Assessment Respiratory - Within Defined Parameters WDP Except Effort Mechanically Ventilated Depth Normal Respiratory Pattern Normal Chest Shape Normal Trachea Description Midline Throughout Breath Sounds Clear Diminished 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 Amount None 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 Start: 01/25/18 22: 44 Freq: DOMINIC.Q2H.E Status: Active Protocol: Document 01/26/18 04:00 MARY (Rec: 01/26/18 04:58 [facility] [id number]) EKG Assessment EKG Status Monitoring EKG Method Bedside Leads Monitored II Pulse Rate (60-90) 60 EKG Rhythm Normal Sinus Rhythm Document 01/26/18 06:00 KF (Rec: 01/26/18 06:07 KF [id number]) EKG Assessment EKG Status Monitoring EKG Method Bedside Leads Monitored II Pulse Rate (60-90) 58 L EKG Rhythm Normal Sinus Rhythm Document 01/26/18 08:00 JL (Rec: 01/26/18 09:51 JL [id number]) EKG Assessment EKG Status Monitoring EKG Method Bedside Leads Monitored II Pulse Rate (60-90) 56 L EKG Rhythm Sinus Bradycardia Document 01/26/18 10:00 JL (Rec: 01/26/18 10:23 JL [id number]) EKG Assessment EKG Status Monitoring EKG Method Bedside Leads Monitored II Pulse Rate (60-90) 55 L EKG Rhythm Sinus Bradycardia Document 01/26/18 12:00 LJN (Rec: 01/26/18 19:13 LJN [id number]) EKG Assessment EKG Status Monitoring EKG Method Bedside Leads Monitored II Pulse Rate (60-90) 56 L EKG Rhythm Sinus Bradycardia Document 01/26/18 14:00 LJN (Rec: 01/26/18 19:31 LJN [id number]) EKG Assessment EKG Status Monitoring EKG Method Bedside Leads Monitored II Pulse Rate (60-90) 45 L EKG Rhythm Sinus Bradycardia Document 01/26/18 16:00 LJN (Rec: 01/26/18 19:31 LJN [id number]) EKG Assessment EKG Status Monitoring EKG Method Bedside Leads Monitored II Pulse Rate (60-90) 45 L EKG Rhythm Sinus Bradycardia Document 01/26/18 18:00 LJN (Rec: 01/26/18 19:31 LJN [id number]) EKG Assessment EKG Status Monitoring EKG Method Bedside Leads Monitored II Pulse Rate (60-90) 52 L EKG Rhythm Sinus Bradycardia Document 01/26/18 20:00 MARY (Rec: 01/26/18 21:42 MARY [id number]) EKG Assessment EKG Status Monitoring EKG Method Bedside Leads Monitored II Pulse Rate (60-90) 64 EKG Rhythm Sinus Bradycardia Care Provider Interaction Start: 01/25/18 23: 37 Freq: PCS.PRN Status: Active Protocol: Document 01/26/18 14:30 LJN (Rec: 01/26/18 19:43 LJN [id number]) Care Provider Interaction Care Provider Notification Type Visit Time Care Provider Contacted 14:30 Care Provider Name Contacted An Ocampo Other Reason for Notification Informed him of MRI/CT completion, asked for cervical collar to be put on Document 01/26/18 14:45 LJN (Rec: 01/26/18 19:44 LJN [id number]) Care Provider Interaction Care Provider Notification Type Visit Time Care Provider Contacted 14:45 Care Provider Name Contacted Moise Camarena Other Reason for Notification Asked to check out MRI/CT, ok to extubate from neuro standpoint Collect Specimen: Drug Screen,Urine Start: 01/25/18 22: 50 Freq: ONCE Status: Complete Protocol: Document 01/25/18 22:50 KF (Rec: 01/26/18 01:05 KF [id number]) Collect Specimen: MRSA PCR Surveillance Start: 01/26/18 00: 54 Freq: ONCE Status: Complete Protocol: Document 01/26/18 00:54 KF (Rec: 01/26/18 01:20 KF [id number]) Collect Specimen: Urinalysis C&S if indicated Start: 01/25/18 22: 50 Freq: ONCE Status: Complete Protocol: Document 01/25/18 22:50 KF (Rec: 01/26/18 01:05 KF [id number]) ED Discharge Assessment Start: 01/25/18 22: 42 Freq: Status: Active Protocol: Document 01/26/18 05:54 KV (Rec: 01/26/18 05:54 KV [id number]) ED Discharge Assessment Mode of Transport at Admission TO 1334 Patient Belongings At DC Disposition of Belongings and Valuables Not Applicable at DC Pain Assessment Pain Scale Used Numeric (0 - 10) Elevate head of bed Start: 01/26/18 06: 54 Freq: ONGOING Status: Active Protocol: Document 01/26/18 06:54 JL (Rec: 01/26/18 08:03 JL [id number]) Fall Risk Assessment/Prevention Start: 01/25/18 23: 37 Freq: DOMINIC.DAILY@0800 Status: Active Protocol: Document 01/26/18 08:00 JL (Rec: 01/26/18 09:51 JL [id number]) Fall Risk Assessment/Prevention Fall Risk Level Low/[place] Fall Poor Judgment/Confusion Intervention Thornton PRN Implemented Fall Risk Teaching Record Teaching Stage Ongoing Fall Risk Education Topics Precautions/Safety Measures Teaching Methods Discussion Teaching Recipient Patient Feeding Assessment Start: 01/25/18 23: 37 Freq: DOMINIC.DAILY@08&&18 Status: Active Protocol: Document 01/26/18 08:00 JL (Rec: 01/26/18 09:51 JL [id number]) Feeding Assessment Intake Status NPO Document 01/26/18 12:00 LJN (Rec: 01/26/18 19:13 LJN [id number]) Feeding Assessment Intake Status NPO Document 01/26/18 18:00 LJN (Rec: 01/26/18 19:36 LJN [id number]) Feeding Assessment Intake Status NPO Gastric Tube Management Start: 01/26/18 01: 05 Freq: DOMINIC.Q8H Status: Active Protocol: Document 01/26/18 07:00 JL (Rec: 01/26/18 08:04 JL [id number]) Gastric Tube Assessment Oral Insertion Date 01/26/18 Status Monitor Suction Low Intermittent Wall Gastric Content Description Yellow Purulent Placement Verification Method Aspiration Document 01/26/18 15:00 LJN (Rec: 01/26/18 19:32 LJN [id number]) Gastric Tube Assessment Oral Insertion Date 01/26/18 Status Monitor Suction Low Intermittent Wall Gastric Content Description Yellow Placement Verification Method Aspiration Hand Off Communication Start: 01/25/18 23: 37 Freq: DOMINIC.Q12H Status: Active Protocol: Document 01/26/18 07:00 VIK (Rec: 01/26/18 08:04 JL [id number]) Hand Off Communication Report Received Communication Received From Shelly Hernández Document 01/26/18 19:00 MARY (Rec: 01/26/18 21:59 MARY [id number]) Hand Off Communication Report Received Communication Received From Asia Denney IV / Invasive Line Management Start: 01/25/18 22: 44 Freq: PCS.NOW Status: Active Protocol: Document 01/26/18 09:00 JL (Rec: 01/26/18 09:55 JL [id number]) IV/Invasive Line Assessment Right Antecubital Line Status Monitoring/Assessments Date of Insertion 01/25/18 Line Size 18 GA Dressing Dry Intact Central Line Access Criteria for Medication Administration Continuation Left Antecubital Line Status Monitoring/Assessments Date of Insertion 01/25/18 Line Size 16 GA Site/Line Observation Asymptomatic Line Care Tubing Current and Label Dressing Dry Intact Central Line Access Criteria for Medication Administration Continuation IV / Invasive Line Management Start: 01/25/18 23: 37 Freq: DOMINIC.Q4H.E Status: Active Protocol: Document 01/26/18 00:00 KF (Rec: 01/26/18 01:18 KF [id number]) IV/Invasive Line Assessment Right Antecubital Line Status Monitoring/Assessments Date of Insertion 01/25/18 Line Size 18 GA Dressing Changed Dry Central Line Access Criteria for Medication Administration Continuation Right Forearm Line Status Monitoring/Assessments Date of Insertion 01/25/18 Site/Line Observation Asymptomatic Line Care Tubing Current and Label Dressing Changed Dry Central Line Access Criteria for Medication Administration Continuation Nursing Actions Taken for Central Line Meets Criteria Catheter Criteria Left Antecubital Line Status Monitoring/Assessments Date of Insertion 01/25/18 Line Size 16 GA Site/Line Observation Asymptomatic Line Care Tubing Current and Label Dressing Changed Dry Central Line Access Criteria for Medication Administration Continuation Document 01/26/18 04:00 MARY (Rec: 01/26/18 04:42 MARY [id number]) IV/Invasive Line Assessment Right Antecubital Line Status Monitoring/Assessments Date of Insertion 01/25/18 Line Size 18 GA Dressing Dry Intact Central Line Access Criteria for Medication Administration Continuation Right Forearm Line Status Monitoring/Assessments Date of Insertion 01/25/18 Site/Line Observation Asymptomatic Line Care Tubing Current and Label Dressing Dry Intact Central Line Access Criteria for Medication Administration Continuation Nursing Actions Taken for Central Line Meets Criteria Catheter Criteria Left Antecubital Line Status Monitoring/Assessments Date of Insertion 01/25/18 Line Size 16 GA Site/Line Observation Asymptomatic Line Care Tubing Current and Label Dressing Dry Intact Central Line Access Criteria for Medication Administration Continuation Document 01/26/18 08:00 JL (Rec: 01/26/18 09:51 JL [id number]) IV/Invasive Line Assessment Right Antecubital Line Status Monitoring/Assessments Date of Insertion 01/25/18 Line Size 18 GA Dressing Dry Intact Central Line Access Criteria for Medication Administration Continuation Right Forearm Line Status Monitoring/Assessments Date of Insertion 01/25/18 Site/Line Observation Asymptomatic Line Care Tubing Current and Label Dressing Dry Intact Central Line Access Criteria for Medication Administration Continuation Nursing Actions Taken for Central Line Meets Criteria Catheter Criteria Left Antecubital Line Status Monitoring/Assessments Date of Insertion 01/25/18 Line Size 16 GA Site/Line Observation Asymptomatic Line Care Tubing Current and Label Dressing Dry Intact Central Line Access Criteria for Medication Administration Continuation Document 01/26/18 12:00 [facility] (Rec: 01/26/18 19:13 NADIRAN [id number]) IV/Invasive Line Assessment Right Antecubital Line Status Monitoring/Assessments Date of Insertion 01/25/18 Line Size 18 GA Dressing Dry Intact Central Line Access Criteria for Medication Administration Continuation Left Antecubital Line Status Monitoring/Assessments Date of Insertion 01/25/18 Line Size 16 GA Site/Line Observation Asymptomatic Line Care Tubing Current and Label Dressing Dry Intact Central Line Access Criteria for Medication Administration Continuation Document 01/26/18 16:00 [facility] (Rec: 01/26/18 19:35 [facility] [id number]) IV/Invasive Line Assessment Right Antecubital Line Status Monitoring/Assessments Date of Insertion 01/25/18 Line Size 18 GA Dressing Dry Intact Central Line Access Criteria for Medication Administration Continuation Left Antecubital Line Status Monitoring/Assessments Date of Insertion 01/25/18 Line Size 16 GA Site/Line Observation Asymptomatic Line Care Tubing Current and Label Dressing Dry Intact Central Line Access Criteria for Medication Administration Continuation Document 01/26/18 20:00 MARY (Rec: 01/26/18 21:43 [facility] [id number]) IV/Invasive Line Assessment Right Antecubital Line Status Monitoring/Assessments Date of Insertion 01/25/18 Line Size 18 GA Dressing Dry Intact Central Line Access Criteria for Medication Administration Continuation Left Antecubital Line Status Monitoring/Assessments Date of Insertion 01/25/18 Line Size 16 GA Site/Line Observation Asymptomatic Line Care Tubing Current and Label Dressing Dry Intact Central Line Access Criteria for Medication Administration Continuation Insert/Manage urinary catheter Start: 01/26/18 09: 28 Freq: Once Status: Active Protocol: Document 01/26/18 09:28 JL (Rec: 01/26/18 09:56 JL [id number]) Urinary Catheter Assessment Catheter Present on Admission No Indwelling Urethral Catheter Date of Insertion 01/25/18 Catheter Care Simin-care Indwelling Catheter Care Protocol Closed System Intact Followed Bag Hung Below Bladder Catheter Properly Secured Tubing Free of Kinks Reason for Continuing Indwelling Hourly intake/output Catheter Intake and Output Start: 01/26/18 00: 54 Freq: 0600,1800 Status: Active Protocol: Document 01/26/18 03:09 KF (Rec: 01/26/18 03:10 KF [id number]) Document 01/26/18 05:25 KF (Rec: 01/26/18 05:26 KF [id number]) Document 01/26/18 05:26 KF (Rec: 01/26/18 05:26 KF [id number]) Document 01/26/18 06:00 KF (Rec: 01/26/18 06:36 KF [id number]) Intake and Output Indwelling Urethral Catheter Urine Amount (Catheter) 850 Urine Color Yellow Oral Gastric Drainage Amount 400 Document 01/26/18 06:36 KF (Rec: 01/26/18 06:38 KF [id number]) Intake and Output NS Inj 1,000 ML @ 100 mls/hr IV.SIG .Q10H FRANCO Rx#:[id number] Intake, IV Amount 593 Document 01/26/18 06:37 KF (Rec: 01/26/18 06:38 KF [id number]) Intake and Output MVI-12 Inj 10 ML Thiamine Inj 100 MG Folvite Inj 1 MG In NS Inj 500 ML @ 125 mls/hr IV.SIG Q24H FRANCO Rx#:[id number] Intake, IV Amount 511.2 Document 01/26/18 06:37 KF (Rec: 01/26/18 06:38 KF [id number]) Intake and Output Diprivan 1000 mg/100 ml Inj 1,000 mg In 100 ml @ 5 MCG/KG/MIN 1.911 mls/hr IV.CONT TITRATE PRN Rx#:[id number] Intake, IV Amount 67.2 Document 01/26/18 06:38 KF (Rec: 01/26/18 06:38 KF [id number]) Intake and Output fentaNYL 10 mcg/mL Premix Drip 2,500 mcg In 250 ml @ 50 MCG/HR 5 mls/hr IV.SIG TITRATE PRN Rx#:[id number] Intake, IV Amount 74.1 Document 01/26/18 07:04 KF (Rec: 01/26/18 07:04 KF [id number]) Document 01/26/18 07:04 KF (Rec: 01/26/18 07:04 KF [id number]) Document 01/26/18 08:35 JL (Rec: 01/26/18 08:36 JL [id number]) Intake and Output Diprivan 1000 mg/100 ml Inj 1,000 mg In 100 ml @ 5 MCG/KG/MIN 1.911 mls/hr IV.CONT TITRATE PRN Rx#:[id number] Intake, IV Amount 32.8 Document 01/26/18 09:30 JL (Rec: 01/26/18 10:40 JL [id number]) Document 01/26/18 10:00 JL (Rec: 01/26/18 10:40 JL [id number]) Document 01/26/18 10:23 JL (Rec: 01/26/18 10:24 JL [id number]) Intake and Output NS Inj 1,000 ML @ 100 mls/hr IV.SIG .Q10H FRANCO Rx#:[id number] Intake, IV Amount 407 Document 01/26/18 10:39 JL (Rec: 01/26/18 10:40 JL [id number]) Document 01/26/18 10:39 JL (Rec: 01/26/18 10:40 JL [id number]) Document 01/26/18 18:00 LJN (Rec: 01/26/18 19:36 LJN [id number]) Intake and Output Indwelling Urethral Catheter Urine Amount (Catheter) 850 Urine Color Yellow Oral Gastric Drainage Amount 400 Document 01/26/18 19:00 MARY (Rec: 01/26/18 21:34 MARY [id number]) Document 01/26/18 20:30 MARY (Rec: 01/26/18 21:08 MARY [id number]) Document 01/26/18 20:31 MARY (Rec: 01/26/18 21:20 MARY [id number]) Intake and Output fentaNYL 10 mcg/mL Premix Drip 2,500 mcg In 250 ml @ 50 MCG/HR 5 mls/hr IV.SIG TITRATE PRN Rx#:[id number] Intake, IV Amount 250 Document 01/26/18 21:00 MARY (Rec: 01/26/18 21:35 MARY [id number]) Isolation Precautions Start: 01/26/18 01: 33 Freq: DOMINIC.DAILY@0800&1999 Status: Active Protocol: Document 01/26/18 08:00 JL (Rec: 01/26/18 09:51 JL [id number]) Isolation Precautions Isolation Action Taken Initiated Mechanical Ventilation Assessment Start: 01/26/18 01: 05 Freq: DOMINIC.Q4H.E Status: Active Protocol: Document 01/25/18 23:45 CRM (Rec: 01/26/18 02:29 CRM [id number]) Mechanical Ventilation Complex Cuffed ET Tube ETT Insertion Date 01/25/18 ETT Insertion Time 23:45 Number of Attempts 1 Atraumatic Intubation Yes Intubated By Anesthesia C-Mac or Glidescope Used Yes Placement Verified By Breath Sounds Bilaterally ETT Size (mm) 8 Endotracheal Tube Position at Lip (cm) ( 24 cm) ET Tube Secured at Right Lip Subglottic Tube to Suction No Intubation Comments BBS confirmed,ETCO2 positive for color change Ventilator ID GE Ventilator Mode PRVC/AC Respiratory Rate Setting (bpm) (breaths/ 14 min) Tidal Volume Setting (ml/kg) 450 FIO2 Setting (%) 50 PEEP Setting (cm H2O) 5 Ventilator Inspiratory Time Setting ( 1.0 seconds) High Respiratory Rate Alarm (bpm) ( 40 breaths/min) Low Respiratory Rate Alarm (bpm) ( 8 breaths/min) Low Mechanical Volume Alarm (mL) 300 Low Minute Volume Alarm (L/min) (L/min) 4 High Minute Volume Alarm (L/min) 18 Low Pressure Alarm (cm H2O) (cm H2O) 6 High Pressure Alarm (cm H2O) (cm H2O) 48 Low PEEP Alarm (cm H2O) (cmH2O) 2 Apnea Alarm (seconds) (seconds) 20 Alarms Set to Maximum Volume Yes Head of Bed Position (degrees) 30 Respiratory Safety Items at Bedside/ Resuscitation Bag/Mask Cribside Suction Document 01/26/18 02:00 KF (Rec: 01/26/18 02:24 KF [id number]) Mechanical Ventilation Complex Cuffed ET Tube ETT Insertion Date 01/25/18 ETT Insertion Time 23:45 Vent Days 0 ETT Size (mm) 8 ET Tube Repositioned No Endotracheal Tube Position at Lip (cm) ( 24 cm) ET Tube Secured at Right Lip Ventilator Mode PRVC/SIMV Respiratory Rate Setting (bpm) (breaths/ 14 min) Spontaneous Respirations 450 Total Breath Rate (breaths/min) 464 FIO2 Setting (%) 50 PEEP Setting (cm H2O) 5 Ventilator Settings Comments i time 1.0 Head of Bed Position (degrees) 30 Mechanical Ventilation Oral Care Yes VAP Educational Handout Provided Yes VTE Prophylaxis Prescribed Yes Stress Ulcer Prophylaxis Prescribed Yes Respiratory Safety Items at Bedside/ Bulb Syringe Cribside Resuscitation Bag/Mask Oxygen Supply Document 01/26/18 02:29 CRM (Rec: 01/26/18 02:32 CRM [id number]) Mechanical Ventilation Complex Ventilator ID GE Ventilator Mode PRVC/AC Respiratory Rate Setting (bpm) (breaths/ 14 min) Total Breath Rate (breaths/min) 14 Tidal Volume Setting (ml/kg) 450 FIO2 Setting (%) 30 PEEP Setting (cm H2O) 5 Ventilator Inspiratory Time Setting ( 1.0 seconds) Breath Type Assisted Respiratory Rate (12-24) 14 Exhaled Tidal Volume (ml/kg) 602 Minute Ventilation (L/min) 8.7 Peak Inspiratory Pressure (cmH2O) 16 Mean Airway Pressure (cmH2O) 12 Dynamic Lung Compliance (mL/cmH2O) 54.73 Pulse Oximetry (95-100) 100 High Respiratory Rate Alarm (bpm) ( 40 breaths/min) Low Respiratory Rate Alarm (bpm) ( 8 breaths/min) Low Mechanical Volume Alarm (mL) 300 Low Minute Volume Alarm (L/min) (L/min) 4 High Minute Volume Alarm (L/min) 18 Low Pressure Alarm (cm H2O) (cm H2O) 6 High Pressure Alarm (cm H2O) (cm H2O) 48 Low PEEP Alarm (cm H2O) (cmH2O) 2 Apnea Alarm (seconds) (seconds) 20 Alarms Set to Maximum Volume Yes Document 01/26/18 04:00 [facility] (Rec: 01/26/18 04:47 [facility] [id number]) Mechanical Ventilation Complex Cuffed ET Tube ETT Insertion Date 01/25/18 ETT Insertion Time 23:45 ETT Size (mm) 8 Endotracheal Tube Position at Lip (cm) ( 24 cm) ET Tube Secured at Right Lip Ventilator Mode PRVC/AC Respiratory Rate Setting (bpm) (breaths/ 14 min) Spontaneous Respirations 0 Total Breath Rate (breaths/min) 14 Tidal Volume Setting (ml/kg) 450 FIO2 Setting (%) 30 PEEP Setting (cm H2O) 5 Head of Bed Position (degrees) 30 Mechanical Ventilation Oral Care Yes Vent Tube and Condensation Trap Emptied Yes Before Positioning VTE Prophylaxis Prescribed Yes Stress Ulcer Prophylaxis Prescribed Yes Respiratory Safety Items at Bedside/ Bulb Syringe Cribside Resuscitation Bag/Mask Suction Oxygen Supply Document 01/26/18 04:52 CRM (Rec: 01/26/18 04:55 CRM [id number]) Mechanical Ventilation Complex Ventilator ID GE Ventilator Mode PRVC/AC Respiratory Rate Setting (bpm) (breaths/ 14 min) Tidal Volume Setting (ml/kg) 450 FIO2 Setting (%) 30 PEEP Setting (cm H2O) 5 Ventilator Inspiratory Time Setting ( 1.0 seconds) Breath Type Assisted Respiratory Rate (12-24) 15 Exhaled Tidal Volume (ml/kg) 536 Minute Ventilation (L/min) 7.7 Peak Inspiratory Pressure (cmH2O) 13 Mean Airway Pressure (cmH2O) 7 Dynamic Lung Compliance (mL/cmH2O) 67.00 Pulse Oximetry (95-100) 100 High Respiratory Rate Alarm (bpm) ( 40 breaths/min) Low Respiratory Rate Alarm (bpm) ( 8 breaths/min) Low Mechanical Volume Alarm (mL) 300 Low Minute Volume Alarm (L/min) (L/min) 4 High Minute Volume Alarm (L/min) 18 Low Pressure Alarm (cm H2O) (cm H2O) 6 High Pressure Alarm (cm H2O) (cm H2O) 48 Low PEEP Alarm (cm H2O) (cmH2O) 2 Apnea Alarm (seconds) (seconds) 20 Alarms Set to Maximum Volume Yes Mechanical Ventilation Assessment Start: 01/26/18 07: 25 Freq: PCS.ROUTINE Status: Active Protocol: Document 01/26/18 08:19 [facility] (Rec: 01/26/18 08:23 [facility] [id number]) Mechanical Ventilation Complex Cuffed ET Tube ETT Size (mm) 8.0 ET Tube Repositioned Yes Endotracheal Tube Position at Lip (cm) ( 24 cm) ET Tube Secured at Right Lip Ventilator ID Ventilator Number 77 Ventilator Mode PRVC/AC Respiratory Rate Setting (bpm) (breaths/ 14 min) Tidal Volume Setting (ml/kg) 450 FIO2 Setting (%) 30 PEEP Setting (cm H2O) 5 Ventilator Inspiratory Time Setting ( 1.0 seconds) Breath Type Assisted Respiratory Rate (12-24) 14 Exhaled Tidal Volume (ml/kg) 483 Minute Ventilation (L/min) 6.8 Peak Inspiratory Pressure (cmH2O) 14 Mean Airway Pressure (cmH2O) 7 Dynamic Lung Compliance (mL/cmH2O) 53.67 Pulse Oximetry (95-100) 100 High Respiratory Rate Alarm (bpm) ( 40 breaths/min) Low Respiratory Rate Alarm (bpm) ( 8 breaths/min) Low Mechanical Volume Alarm (mL) 300 Low Minute Volume Alarm (L/min) (L/min) 4 High Minute Volume Alarm (L/min) 18 Low Pressure Alarm (cm H2O) (cm H2O) 6 High Pressure Alarm (cm H2O) (cm H2O) 45 Low PEEP Alarm (cm H2O) (cmH2O) 2 Apnea Alarm (seconds) (seconds) 20 Alarms Set to Maximum Volume Remote Alarm Connected Respiratory Safety Items at Bedside/ Resuscitation Bag/Mask Cribside Suction Oxygen Supply Document 01/26/18 11:19 [facility] (Rec: 01/26/18 11:21 [facility] [id number]) Mechanical Ventilation Complex Ventilator ID Ventilator Number 77 Ventilator Mode PRVC/AC Respiratory Rate Setting (bpm) (breaths/ 14 min) Tidal Volume Setting (ml/kg) 450 FIO2 Setting (%) 30 PEEP Setting (cm H2O) 5 Ventilator Inspiratory Time Setting ( 1.0 seconds) Breath Type Assisted Respiratory Rate (12-24) 21 Exhaled Tidal Volume (ml/kg) 848 Minute Ventilation (L/min) 12.0 Peak Inspiratory Pressure (cmH2O) 9 Mean Airway Pressure (cmH2O) 7 Dynamic Lung Compliance (mL/cmH2O) 212.00 Pulse Oximetry (95-100) 100 Document 01/26/18 15:54 [facility] (Rec: 01/26/18 15:56 [facility] [id number]) Mechanical Ventilation Complex Ventilator ID GE Ventilator Number 77 Ventilator Mode PRVC/AC Respiratory Rate Setting (bpm) (breaths/ 14 min) Tidal Volume Setting (ml/kg) 450 FIO2 Setting (%) 30 PEEP Setting (cm H2O) 5 Ventilator Inspiratory Time Setting ( 1.0 seconds) Ventilator Settings Comments PT BACK ON A RATE FOR APNEA Breath Type Assisted Respiratory Rate (12-24) 15 Exhaled Tidal Volume (ml/kg) 479 Minute Ventilation (L/min) 8.4 Peak Inspiratory Pressure (cmH2O) 13 Mean Airway Pressure (cmH2O) 8 Dynamic Lung Compliance (mL/cmH2O) 59.88 Pulse Oximetry (95-100) 100 Document 01/26/18 20:24 MH (Rec: 01/26/18 20:29 MH [id number]) Mechanical Ventilation Complex Cuffed ET Tube ETT Size (mm) 8 Endotracheal Tube Position at Lip (cm) ( 24 cm) ET Tube Secured at Midline Ventilator ID Ventilator Number 77 Ventilator Mode PRVC/AC Respiratory Rate Setting (bpm) (breaths/ 14 min) Tidal Volume Setting (ml/kg) 450 FIO2 Setting (%) 30 PEEP Setting (cm H2O) 5 Ventilator Inspiratory Time Setting ( 1 seconds) Respiratory Rate (12-24) 24 Exhaled Tidal Volume (ml/kg) 392 Minute Ventilation (L/min) 9.4 Peak Inspiratory Pressure (cmH2O) 14 Mean Airway Pressure (cmH2O) 8 Dynamic Lung Compliance (mL/cmH2O) 43.56 Pulse Oximetry (95-100) 100 High Respiratory Rate Alarm (bpm) ( 35 breaths/min) Low Mechanical Volume Alarm (mL) 300 Low Minute Volume Alarm (L/min) (L/min) 5 High Minute Volume Alarm (L/min) 15 Low Pressure Alarm (cm H2O) (cm H2O) 8 High Pressure Alarm (cm H2O) (cm H2O) 40 Low PEEP Alarm (cm H2O) (cmH2O) 2 Apnea Alarm (seconds) (seconds) 20 Alarms Set to Maximum Volume Yes Head of Bed Position (degrees) 30 Respiratory Safety Items at Bedside/ Resuscitation Bag/Mask Cribside Suction Oxygen Supply Neuro Checks Start: 01/26/18 00: 55 Freq: DOMINIC.Q1H Status: Active Protocol: Document 01/26/18 01:00 (Rec: 01/26/18 01:26 [id number]) Neurological Checks Eye Opening None Verbal Response None Motor Response Localizing [place] Coma Scale Total 7 Level of Consciousness Sedated Arousable To Deep Tactile Comprehension Ability No Impairment Speech Clarity Artificially ventilated Tongue Position (CN XII) Midline Bilateral Shape Round Reaction Constricted Bilateral Lower Extremity Neuro Movement Assessment To Command Spontaneously Purposeful Bilateral Upper Extremity Neuro Movement Assessment Localizes to Pain Right Upper Extremity Strength 1 Tone Flaccid Left Upper Extremity Strength 2 Tone Flaccid Bilateral Lower Extremity Strength 5 Tone Normal Upper Extremity Drift Bilateral Corneal Reflex Present Bilateral Cough/Gag Reflex Present Babinski Reflex Present Bilateral Document 01/26/18 02:00 KF (Rec: 01/26/18 02:25 [id number]) Neurological Checks Eye Opening None Verbal Response None Motor Response Localizing [place] Coma Scale Total 7 Level of Consciousness Sedated Arousable To Deep Tactile Comprehension Ability No Impairment Speech Clarity Artificially ventilated Speech Pattern Artificially Ventilated Tongue Position (CN XII) Midline Bilateral Shape Round Size (mm) 1 Reaction Constricted Right Upper Extremity Neuro Movement Assessment None Left Upper Extremity Neuro Movement Assessment Withdraws to Pain Bilateral Lower Extremity Neuro Movement Assessment Withdraws to Pain Bilateral Upper Extremity Neuro Movement Assessment Localizes to Pain Right Upper Extremity Strength 1 Tone Flaccid Left Upper Extremity Strength 1 Tone Flaccid Bilateral Lower Extremity Strength 2 Tone Normal Upper Extremity Drift Bilateral Corneal Reflex Present Bilateral Cough/Gag Reflex Present Babinski Reflex Present Bilateral Document 01/26/18 03:00 KF (Rec: 01/26/18 03:09 [id number]) Neurological Checks Eye Opening None Verbal Response None Motor Response Normal flexion [place] Coma Scale Total 6 Level of Consciousness Sedated Arousable To Deep Tactile Speech Clarity Artificially ventilated Speech Pattern Artificially Ventilated Tongue Position (CN XII) Midline Bilateral Shape Round Size (mm) 1 Reaction Constricted Right Upper Extremity Neuro Movement Assessment None Left Upper Extremity Neuro Movement Assessment None Bilateral Lower Extremity Neuro Movement Assessment Withdraws to Pain Bilateral Upper Extremity Neuro Movement Assessment Localizes to Pain Right Upper Extremity Strength 0 Tone Flaccid Left Upper Extremity Strength 1 Tone Flaccid Bilateral Lower Extremity Strength 2 Tone Normal Corneal Reflex Present Bilateral Cough/Gag Reflex Present Babinski Reflex Present Bilateral Document 01/26/18 04:00 KF (Rec: 01/26/18 06:05 KF [id number]) Neurological Checks Eye Opening None Verbal Response None Motor Response Localizing Tamie Coma Scale Total 7 Level of Consciousness Sedated Arousable To Deep Tactile Patient Orientation Unable to Assess Comprehension Ability No Impairment Speech Clarity Artificially ventilated Speech Pattern Artificially Ventilated Tongue Position (CN XII) Midline Bilateral Shape Round Size (mm) 2 Reaction Questionable Right Upper Extremity Neuro Movement Assessment None Left Upper Extremity Neuro Movement Assessment None Bilateral Lower Extremity Neuro Movement Assessment Localizes to Pain Right Upper Extremity Strength 0 Tone Flaccid Left Upper Extremity Strength 0 Tone Flaccid Bilateral Lower Extremity Strength 3 Tone Normal Upper Extremity Drift Bilateral Corneal Reflex Present Bilateral Cough/Gag Reflex Present Babinski Reflex Present Bilateral Document 01/26/18 06:00 KF (Rec: 01/26/18 06:05 KF [id number]) Neurological Checks Eye Opening None Verbal Response None Motor Response Localizing [place] Coma Scale Total 7 Level of Consciousness Sedated Arousable To Deep Tactile Patient Orientation Unable to Assess Comprehension Ability No Impairment Speech Clarity Artificially ventilated Fluidity of Speech Difficulty Finding Words Speech Pattern Artificially Ventilated Tongue Position (CN XII) Midline Bilateral Shape Round Size (mm) 2 Reaction Questionable Right Upper Extremity Neuro Movement Assessment None Left Upper Extremity Neuro Movement Assessment None Bilateral Lower Extremity Neuro Movement Assessment Localizes to Pain Right Upper Extremity Strength 0 Tone Flaccid Left Upper Extremity Strength 0 Tone Flaccid Bilateral Lower Extremity Strength 3 Tone Normal Upper Extremity Drift Bilateral Corneal Reflex Present Bilateral Cough/Gag Reflex Present Babinski Reflex Present Bilateral Document 01/26/18 07:00 JL (Rec: 01/26/18 08:04 JL [id number]) Neurological Checks Eye Opening None Verbal Response None Motor Response Localizing [place] Coma Scale Total 7 Level of Consciousness Sedated Arousable To Deep Tactile Patient Orientation Unable to Assess Comprehension Ability Severe Impairment Speech Clarity Artificially ventilated Speech Pattern Artificially Ventilated Bilateral Shape Round Size (mm) 2 Reaction Questionable Right Upper Extremity Neuro Movement Assessment None Left Upper Extremity Neuro Movement Assessment None Bilateral Lower Extremity Neuro Movement Assessment Spontaneously Localizes to Pain Right Upper Extremity Strength 0 Tone Flaccid Left Upper Extremity Strength 0 Tone Flaccid Bilateral Lower Extremity Strength 3 Tone Normal Upper Extremity Drift Bilateral Cough/Gag Reflex Present Document 01/26/18 08:00 JL (Rec: 01/26/18 09:51 JL [id number]) Neurological Checks Eye Opening None Verbal Response None Motor Response Localizing [place] Coma Scale Total 7 Level of Consciousness Sedated Arousable To Deep Tactile Patient Orientation Unable to Assess Comprehension Ability Severe Impairment Speech Clarity Artificially ventilated Speech Pattern Artificially Ventilated Tongue Position (CN XII) Midline Bilateral Shape Round Size (mm) 2 Reaction Questionable Right Upper Extremity Neuro Movement Assessment None Left Upper Extremity Neuro Movement Assessment None Bilateral Lower Extremity Neuro Movement Assessment Spontaneously Localizes to Pain Right Upper Extremity Strength 0 Tone Flaccid Left Upper Extremity Strength 0 Tone Flaccid Bilateral Lower Extremity Strength 3 Tone Normal Upper Extremity Drift Bilateral Cough/Gag Reflex Present Document 01/26/18 09:00 JL (Rec: 01/26/18 09:55 JL [id number]) Neurological Checks Eye Opening None Verbal Response None Motor Response Localizing [place] Coma Scale Total 7 Level of Consciousness Sedated Arousable To Deep Tactile Patient Orientation Unable to Assess Comprehension Ability Severe Impairment Speech Clarity Artificially ventilated Speech Pattern Artificially Ventilated Tongue Position (CN XII) Midline Bilateral Shape Round Size (mm) 2 Reaction Questionable Right Upper Extremity Neuro Movement Assessment None Left Upper Extremity Neuro Movement Assessment None Bilateral Lower Extremity Neuro Movement Assessment Spontaneously Localizes to Pain Right Upper Extremity Strength 0 Tone Flaccid Left Upper Extremity Strength 0 Tone Flaccid Bilateral Lower Extremity Strength 3 Tone Normal Upper Extremity Drift Bilateral Cough/Gag Reflex Present Document 01/26/18 10:00 JL (Rec: 01/26/18 10:23 [id number]) Neurological Checks Eye Opening To sound Verbal Response None Motor Response Localizing Tamie Coma Scale Total 9 Level of Consciousness Sedated Arousable To Deep Tactile Patient Orientation Unable to Assess Comprehension Ability Severe Impairment Speech Clarity Artificially ventilated Speech Pattern Artificially Ventilated Tongue Position (CN XII) Midline Bilateral Shape Round Size (mm) 2 Reaction Questionable Right Upper Extremity Neuro Movement Assessment None Left Upper Extremity Neuro Movement Assessment None Bilateral Lower Extremity Neuro Movement Assessment Spontaneously Localizes to Pain Right Upper Extremity Strength 0 Tone Flaccid Left Upper Extremity Strength 0 Tone Flaccid Bilateral Lower Extremity Strength 3 Tone Normal Upper Extremity Drift Bilateral Cough/Gag Reflex Present Document 01/26/18 11:00 JL (Rec: 01/26/18 11:11 JL [id number]) Neurological Checks Eye Opening To sound Verbal Response None Motor Response Localizing [place] Coma Scale Total 9 Level of Consciousness Sedated Arousable To Deep Tactile Patient Orientation Unable to Assess Comprehension Ability Severe Impairment Speech Clarity Artificially ventilated Speech Pattern Artificially Ventilated Tongue Position (CN XII) Midline Bilateral Shape Round Size (mm) 2 Reaction Questionable Right Upper Extremity Neuro Movement Assessment None Left Upper Extremity Neuro Movement Assessment None Bilateral Lower Extremity Neuro Movement Assessment Spontaneously Localizes to Pain Right Upper Extremity Strength 0 Tone Flaccid Left Upper Extremity Strength 0 Tone Flaccid Bilateral Lower Extremity Strength 3 Tone Normal Upper Extremity Drift Bilateral Cough/Gag Reflex Present Document 01/26/18 12:00 [facility] (Rec: 01/26/18 19:13 [facility] [id number]) Neurological Checks Eye Opening Spontaneous Verbal Response None Motor Response Obey commands Tamie Coma Scale Total 11 Level of Consciousness Alert Arousable To Verbal Patient Orientation Unable to Assess Comprehension Ability Mild Impairment Speech Clarity Artificially ventilated Fluidity of Speech Difficulty Finding Words Speech Pattern Artificially Ventilated Tongue Position (CN XII) Midline Bilateral Shape Round Size (mm) 2 Reaction Questionable Right Upper Extremity Neuro Movement Assessment To Command Left Upper Extremity Neuro Movement Assessment To Command Bilateral Lower Extremity Neuro Movement Assessment To Command Spontaneously Right Upper Extremity Strength 3 Tone Normal Left Upper Extremity Strength 3 Tone Normal Bilateral Lower Extremity Strength 5 Tone Normal Upper Extremity Drift Bilateral Corneal Reflex Present Bilateral Cough/Gag Reflex Present Babinski Reflex Present Bilateral Document 01/26/18 14:00 [facility] (Rec: 01/26/18 19:28 [facility] [id number]) Neurological Checks Eye Opening Spontaneous Verbal Response None Motor Response Obey commands [place] Coma Scale Total 11 Level of Consciousness Alert Arousable To Verbal Patient Orientation Unable to Assess Comprehension Ability Mild Impairment Speech Clarity Artificially ventilated Fluidity of Speech Difficulty Finding Words Speech Pattern Artificially Ventilated Tongue Position (CN XII) Midline Bilateral Shape Round Size (mm) 2 Reaction Questionable Right Upper Extremity Neuro Movement Assessment To Command Left Upper Extremity Neuro Movement Assessment To Command Bilateral Lower Extremity Neuro Movement Assessment To Command Spontaneously Right Upper Extremity Strength 3 Tone Normal Left Upper Extremity Strength 3 Tone Normal Bilateral Lower Extremity Strength 5 Tone Normal Upper Extremity Drift Bilateral Corneal Reflex Present Bilateral Cough/Gag Reflex Present Babinski Reflex Present Bilateral Document 01/26/18 15:00 [facility] (Rec: 01/26/18 19:32 [facility] [id number]) Neurological Checks Eye Opening To sound Verbal Response None Motor Response Obey commands [place] Coma Scale Total 10 Level of Consciousness Alert Arousable To Verbal Patient Orientation Unable to Assess Comprehension Ability Mild Impairment Speech Clarity Artificially ventilated Fluidity of Speech Difficulty Finding Words Speech Pattern Artificially Ventilated Tongue Position (CN XII) Midline Bilateral Shape Round Size (mm) 2 Reaction Questionable Right Upper Extremity Neuro Movement Assessment To Command Left Upper Extremity Neuro Movement Assessment To Command Bilateral Lower Extremity Neuro Movement Assessment To Command Spontaneously Right Upper Extremity Strength 0 Tone Flaccid Left Upper Extremity Strength 3 Tone Normal Bilateral Lower Extremity Strength 5 Tone Normal Upper Extremity Drift Bilateral Corneal Reflex Present Bilateral Cough/Gag Reflex Present Babinski Reflex Present Bilateral Document 01/26/18 16:00 [facility] (Rec: 01/26/18 19:35 [facility] [id number]) Neurological Checks Eye Opening Spontaneous Verbal Response None Motor Response Obey commands [place]ie Coma Scale Total 11 Level of Consciousness Alert Arousable To Verbal Patient Orientation Unable to Assess Comprehension Ability Mild Impairment Speech Clarity Artificially ventilated Speech Pattern Artificially Ventilated Tongue Position (CN XII) Midline Bilateral Shape Round Size (mm) 2 Reaction Questionable Right Upper Extremity Neuro Movement Assessment To Command Left Upper Extremity Neuro Movement Assessment To Command Bilateral Lower Extremity Neuro Movement Assessment To Command Spontaneously Right Upper Extremity Strength 0 Tone Flaccid Left Upper Extremity Strength 3 Tone Normal Bilateral Lower Extremity Strength 5 Tone Normal Upper Extremity Drift Bilateral Corneal Reflex Present Bilateral Cough/Gag Reflex Present Babinski Reflex Present Bilateral Document 01/26/18 17:00 [facility] (Rec: 01/26/18 19:35 [facility] [id number]) Neurological Checks Eye Opening To sound Verbal Response None Motor Response Obey commands [place] Coma Scale Total 10 Level of Consciousness Alert Arousable To Verbal Patient Orientation Unable to Assess Comprehension Ability Mild Impairment Speech Clarity Artificially ventilated Fluidity of Speech Difficulty Finding Words Speech Pattern Artificially Ventilated Tongue Position (CN XII) Midline Bilateral Shape Round Size (mm) 2 Reaction Questionable Right Upper Extremity Neuro Movement Assessment To Command Left Upper Extremity Neuro Movement Assessment To Command Bilateral Lower Extremity Neuro Movement Assessment To Command Spontaneously Right Upper Extremity Strength 0 Tone Flaccid Left Upper Extremity Strength 3 Tone Normal Bilateral Lower Extremity Strength 3 Tone Normal Upper Extremity Drift Bilateral Corneal Reflex Present Bilateral Cough/Gag Reflex Present Babinski Reflex Present Bilateral Document 01/26/18 18:00 [facility] (Rec: 01/26/18 19:36 [facility] [id number]) Neurological Checks Eye Opening To sound Verbal Response None Motor Response Obey commands Tamie Coma Scale Total 10 Level of Consciousness Alert Arousable To Verbal Patient Orientation Unable to Assess Comprehension Ability Mild Impairment Speech Clarity Artificially ventilated Fluidity of Speech Difficulty Finding Words Speech Pattern Artificially Ventilated Tongue Position (CN XII) Midline Bilateral Shape Round Size (mm) 2 Reaction Questionable Right Upper Extremity Neuro Movement Assessment To Command Left Upper Extremity Neuro Movement Assessment To Command Bilateral Lower Extremity Neuro Movement Assessment To Command Spontaneously Right Upper Extremity Strength 0 Tone Flaccid Left Upper Extremity Strength 3 Tone Normal Bilateral Lower Extremity Strength 5 Tone Normal Upper Extremity Drift Bilateral Corneal Reflex Present Bilateral Cough/Gag Reflex Present Babinski Reflex Present Bilateral Document 01/26/18 20:00 [facility] (Rec: 01/26/18 21:41 [facility] [id number]) Neurological Checks Eye Opening Spontaneous Verbal Response None Motor Response Obey commands Tamie Coma Scale Total 11 Level of Consciousness Sedated Arousable To Verbal Patient Orientation Unable to Assess Comprehension Ability Mild Impairment Speech Clarity Artificially ventilated Unable to Assess Speech Pattern Artificially Ventilated Tongue Position (CN XII) Midline Bilateral Shape Round Size (mm) 2 Reaction Brisk Right Upper Extremity Neuro Movement Assessment None Left Upper Extremity Neuro Movement Assessment None Bilateral Lower Extremity Neuro Movement Assessment To Command Spontaneously Purposeful Right Upper Extremity Strength 0 Tone Flaccid Left Upper Extremity Strength 0 Tone Flaccid Bilateral Lower Extremity Strength 5 Tone Normal Upper Extremity Drift None Corneal Reflex Present Bilateral Cough/Gag Reflex Present Document 01/26/18 21:00 [facility] (Rec: 01/26/18 21:41 [facility] [id number]) Neurological Checks Eye Opening Spontaneous Verbal Response None Motor Response Obey commands [place] Coma Scale Total 11 Level of Consciousness Sedated Arousable To Verbal Patient Orientation Unable to Assess Comprehension Ability Mild Impairment Speech Clarity Artificially ventilated Unable to Assess Speech Pattern Artificially Ventilated Tongue Position (CN XII) Midline Bilateral Shape Round Size (mm) 2 Reaction Brisk Right Upper Extremity Neuro Movement Assessment None Left Upper Extremity Neuro Movement Assessment None Bilateral Lower Extremity Neuro Movement Assessment To Command Spontaneously Purposeful Right Upper Extremity Strength 0 Tone Flaccid Left Upper Extremity Strength 0 Tone Flaccid Bilateral Lower Extremity Strength 5 Tone Normal Upper Extremity Drift None Corneal Reflex Present Bilateral Cough/Gag Reflex Present Non-Violent Restraint Assessment Start: 01/26/18 06: 54 Freq: DOMINIC.Q3H Status: Active Protocol: Document 01/26/18 00:00 [facility]ON[facility] (Rec: 01/26/18 07:06 KF [id number]) Non-Violent Restraint Assessment Non-Violent Restraint Episode New Alternatives Attempted to Avoid Bring Patient Closer to Nurses Restraints Station Conceal Tubing/Dressing Constant Observation Discontinue Unnecessary Devices Fluid/Nutrition Offered Frequent Ambulation Medication Assessment Pain/Comfort Measures 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 Patient Response to Alternatives Unable to Reorient Unable to Comprehend Does Not Follow Direction Restless Pulling at Tubes/Devices Non-Purposeful Movements Actions Taken Physician Notified Order Obtained Response to Notification Family/Other Unavailable Soft Cuff Restraint Location Right Upper Extremity Left Upper Extremity Restraint Status Initiated Restraint Value APS_46_RESST 3 Patient Care Performed Repositioned Skin Integrity Check Physical Comfort Assessed Mental Status Assessed Circulation Distal to Restraint Pulses present Skin Condition Under or Around Restraint Intact Document 01/26/18 04:00 KF (Rec: 01/26/18 07:06 KF [id number]) Non-Violent Restraint Assessment Soft Cuff Restraint Location Right Upper Extremity Left Upper Extremity Restraint Status Continued Restraint Value APS_46_RESST 4 Patient Care Performed Repositioned Skin Integrity Check Physical Comfort Assessed Mental Status Assessed Circulation Distal to Restraint Pulses present Skin Condition Under or Around Restraint Intact Document 01/26/18 10:00 JL (Rec: 01/26/18 10:23 JL [id number]) Non-Violent Restraint Assessment Non-Violent Restraint Episode Ongoing Alternatives Attempted to Avoid Bring Patient Closer to Nurses Restraints Station Conceal Tubing/Dressing Constant Observation Discontinue Unnecessary Devices Fluid/Nutrition Offered Frequent Ambulation Medication Assessment Pain/Comfort Measures 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 Patient Response to Alternatives Unable to Reorient Unable to Comprehend Does Not Follow Direction Restless Pulling at Tubes/Devices Non-Purposeful Movements Soft Cuff Restraint Location Right Upper Extremity Left Upper Extremity Restraint Status Continued Restraint Value APS_46_RESST 4 Patient Care Performed Repositioned Skin Integrity Check Physical Comfort Assessed Mental Status Assessed Circulation Distal to Restraint Pulses present Extremities Warm Skin Condition Under or Around Restraint Intact Document 01/26/18 14:00 [facility] (Rec: 01/26/18 19:28 [facility] [id number]) Non-Violent Restraint Assessment Non-Violent Restraint Episode Ongoing Alternatives Attempted to Avoid Bring Patient Closer to Nurses Restraints Station Conceal Tubing/Dressing Constant Observation Discontinue Unnecessary Devices Fluid/Nutrition Offered Frequent Ambulation Medication Assessment Pain/Comfort Measures 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 Patient Response to Alternatives Non-Purposeful Movements Soft Cuff Restraint Location Right Upper Extremity Left Upper Extremity Restraint Status Continued Restraint Value APS_46_RESST 4 Patient Care Performed Range of Motion Hygiene Care Skin Integrity Check Physical Comfort Assessed Mental Status Assessed Circulation Distal to Restraint Pulses present Extremities Warm Skin Condition Under or Around Restraint Intact Document 01/26/18 16:00 [facility] (Rec: 01/26/18 19:35 [facility] [id number]) Non-Violent Restraint Assessment Non-Violent Restraint Episode Ongoing Alternatives Attempted to Avoid Bring Patient Closer to Nurses Restraints Station Conceal Tubing/Dressing Constant Observation Discontinue Unnecessary Devices Fluid/Nutrition Offered Frequent Ambulation Medication Assessment Pain/Comfort Measures 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 Patient Response to Alternatives Non-Purposeful Movements Actions Taken Physician Notified Order Obtained Response to Notification Family/Other Unavailable Soft Cuff Restraint Location Right Upper Extremity Left Upper Extremity Restraint Status Continued Restraint Value APS_46_RESST 4 Patient Care Performed Range of Motion Hygiene Care Skin Integrity Check Physical Comfort Assessed Mental Status Assessed Circulation Distal to Restraint Pulses present Extremities Warm Skin Condition Under or Around Restraint Intact Document 01/26/18 19:00 [facility] (Rec: 01/26/18 22:00 [facility] [id number]) Non-Violent Restraint Assessment Non-Violent Restraint Episode Ongoing Alternatives Attempted to Avoid Bowel/Bladder Assessment Restraints Constant Observation Discontinue Unnecessary Devices Medication Assessment Pain/Comfort Measures Physiologic Assessment Reposition for Comfort Patient Response to Alternatives Restless Soft Cuff Restraint Location Right Upper Extremity Left Upper Extremity Restraint Status Continued Restraint Value APS_46_RESST 4 Patient Care Performed Circulation Assessed Repositioned Skin Integrity Check Circulation Distal to Restraint Pulses present Extremities Warm Skin Condition Under or Around Restraint Intact OG tube to Low Intermittent Suction Start: 01/26/18 00: 56 Freq: ONCE Status: Active Protocol: Document 01/26/18 00:56 KF (Rec: 01/26/18 01:23 KF [id number]) Gastric Tube Assessment Oral Insertion Date 01/26/18 Insertion Time 00:00 Status Insertion Tube Size ([place]) 14 Suction Low Intermittent Wall Gastric Content Description Green Yellow Purulent Placement Verification Method Aspiration X-Ray Patency Check Flushes Easily Document 01/26/18 03:07 KF (Rec: 01/26/18 03:08 KF [id number]) Gastric Tube Assessment Oral Insertion Date 01/26/18 Status Monitor Suction Low Intermittent Wall Gastric Content Description Yellow Purulent Placement Verification Method Aspiration Pain Assessment / Reassessment Start: 01/25/18 23: 37 Freq: DOMINIC.Q4H.E Status: Active Protocol: Document 01/26/18 00:00 KF (Rec: 01/26/18 01:19 KF [id number]) Pain Assessment Pain Scale Used NVPS (Non-verbal) Non-Verbal Pain Scale Facial Expression Frequent Grimace/Tears/Frown/ Wrinkled Forehead Activity Restless, Excessive Activity and/or Withdrawal Reflexes Guarding Lying Quietly/No Positioning of Hands Over Body Physiologic Change-Past 4 hrs SBP > 30 mm Hg or HR > 25/minute Respiratory RR > 20 Above Baseline or SpO2 Decreased by 10% Total Score 8 Pain Management Pain Alleviating Factors Medication Document 01/26/18 04:00 MARY (Rec: 01/26/18 04:56 [facility] [id number]) Pain Assessment Pain Scale Used NVPS (Non-verbal) Non-Verbal Pain Scale Facial Expression No Particular Expression or Smile Activity Lying Quietly, Normal Position Guarding Lying Quietly/No Positioning of Hands Over Body Physiologic Stable Vital Signs Respiratory Compliant With Ventilator Total Score 0 Document 01/26/18 08:00 VIK (Rec: 01/26/18 09:51 JL [id number]) Pain Assessment Pain Scale Used NVPS (Non-verbal) Non-Verbal Pain Scale Facial Expression No Particular Expression or Smile Activity Restless, Excessive Activity and/or Withdrawal Reflexes Guarding Lying Quietly/No Positioning of Hands Over Body Physiologic Stable Vital Signs Respiratory Compliant With Ventilator Total Score 2 Document 01/26/18 12:00 [facility] (Rec: 01/26/18 19:13 [facility] [id number]) Pain Assessment Pain Scale Used NVPS (Non-verbal) Non-Verbal Pain Scale Facial Expression Occasional Grimace/Tears/Frown /Wrinkled Forehead Activity Seeking Attention Through Movement Guarding Splinting/Tense Physiologic Stable Vital Signs Respiratory Baseline RR/SpO2 Total Score 3 Pain Management Management Techniques Medication - See MAR Document 01/26/18 16:00 [facility] (Rec: 01/26/18 19:35 [facility] [id number]) Pain Assessment Pain Scale Used NVPS (Non-verbal) Non-Verbal Pain Scale Facial Expression No Particular Expression or Smile Activity Lying Quietly, Normal Position Guarding Lying Quietly/No Positioning of Hands Over Body Physiologic Stable Vital Signs Respiratory Baseline RR/SpO2 Total Score 0 Pressure Injury Prevention Start: 01/26/18 09: 52 Freq: DOMINIC.Q2H.E Status: Active Protocol: Document 01/26/18 10:00 VIK (Rec: 01/26/18 10:23 VIK [id number]) Pressure Injury Prevention Patient Position Right Side Lying Pressure Reduction Intervention- Patient Pressure Reduce Mattress in Bed Reposition Every 2 Hours HOB Angle (degrees) 30 Pressure Reduction Prevention - Bed Foot Board Elevation Repositioning Tools Draw Sheet Reposition Frequently Moisture Reduction Interventions Urine Collection Device Dry Linens Document 01/26/18 12:00 [facility] (Rec: 01/26/18 19:13 [facility] [id number]) Pressure Injury Prevention Patient Position Continuous Pressure Reduction Intervention- Patient Pressure Reduce Mattress in Bed Reposition Every 2 Hours Support Arm with Pillows HOB Angle (degrees) 30 Pressure Reduction Prevention - Bed Foot Board Elevation Repositioning Tools Draw Sheet Reposition Frequently Moisture Reduction Interventions Urine Collection Device Dry Linens Document 01/26/18 14:00 LJN (Rec: 01/26/18 19:31 [facility] [id number]) Pressure Injury Prevention Patient Position Continuous Pressure Reduction Intervention- Patient Pressure Reduce Mattress in Bed Reposition Every 2 Hours Support Arm with Pillows HOB Angle (degrees) 30 Pressure Reduction Prevention - Bed Foot Board Elevation Repositioning Tools Draw Sheet Reposition Frequently Moisture Reduction Interventions Urine Collection Device Dry Linens Document 01/26/18 16:00 [facility] (Rec: 01/26/18 19:31 [facility] [id number]) Pressure Injury Prevention Patient Position Continuous Pressure Reduction Intervention- Patient Pressure Reduce Mattress in Bed Reposition Every 2 Hours Support Arm with Pillows HOB Angle (degrees) 30 Pressure Reduction Prevention - Bed Foot Board Elevation Repositioning Tools Draw Sheet Reposition Frequently Moisture Reduction Interventions Urine Collection Device Dry Linens Document 01/26/18 18:00 [facility] (Rec: 01/26/18 19:31 [facility] [id number]) Pressure Injury Prevention Patient Position Continuous Pressure Reduction Intervention- Patient Pressure Reduce Mattress in Bed Reposition Every 2 Hours Support Arm with Pillows HOB Angle (degrees) 30 Pressure Reduction Prevention - Bed Foot Board Elevation Repositioning Tools Draw Sheet Reposition Frequently Moisture Reduction Interventions Urine Collection Device Dry Linens Removal of Backboard Start: 01/26/18 00: 54 Freq: ONCE Status: Complete Protocol: Document 01/26/18 00:54 KF (Rec: 01/26/18 01:20 KF [id number]) Resp Aerosol Treatment Start: 01/26/18 08: 19 Freq: RT.Q4 Status: Active Protocol: Document 01/26/18 08:19 [facility] (Rec: 01/26/18 08:23 [facility] [id number]) Aerosol Treatment Pulse Rate (60-90) 56 L Respiratory Rate (12-24) 15 Treatment Phase Subsequent Aerosol Treatment Modality Nebulizer Delivery Device Inline with Vent Treatment Duration 15 Minutes Effect of Therapy No Change Throughout Breath Sounds Diminished Cough Description Non-Productive Sputum Amount None Sputum Production Method Endotracheal Suction Document 01/26/18 15:54 RR (Rec: 01/26/18 15:56 [facility] [id number]) Aerosol Treatment Pulse Rate (60-90) 48 L Respiratory Rate (12-24) 21 Treatment Phase Subsequent Aerosol Treatment Modality Nebulizer Delivery Device Inline with Vent Treatment Duration 15 Minutes Effect of Therapy No Change Throughout Breath Sounds Diminished Cough Description Non-Productive Sputum Amount None Document 01/26/18 20:24 MH (Rec: 01/26/18 20:29 MH [id number]) Aerosol Treatment Pulse Rate (60-90) 48 L Respiratory Rate (12-24) 24 Treatment Phase Subsequent Aerosol Treatment Modality Nebulizer Delivery Device Inline with Vent Treatment Duration 10 Minutes Effect of Therapy No Change Throughout Breath Sounds Clear Cough Description Non-Productive Sputum Amount None Resp Airway Standby Start: 01/26/18 01: 02 Freq: NEEDED Status: Active Protocol: Document 01/25/18 22:30 SB (Rec: 01/26/18 01:04 SB [id number]) Respiratory Airway Standby Oxygen Delivery Method Nasal Cannula Oxygen Flow Rate (L/min) 6 Pulse Oximetry (95-100) 100 RT Airway Standby Per 30 Minutes 2 Comments TRAUMA ALERT. UPON ARRIVAL PLACED ON 6LPM NASAL CANNULA AND GRADUALLY WEANED TO 3LPM NASAL CANNULA. PATIENT TRANSPORTED TO ROOM [address] SCAN AT APPROXIMATELY 2330. Resp Spontaneous Breathing Trial Start: 01/26/18 09: 30 Freq: NEEDED Status: Active Protocol: Document 01/26/18 15:58 RR (Rec: 01/26/18 15:58 [facility] [id number]) Spontaneous Breathing Trial SBT Settings CPAP SBT Start Time 14:08 Trial End Time 15:58 PEEP (cm H2O) 5 Pressure Support (cm H2O) 10 Fraction of Inspired Oxygen (%) 30 Spontaneous Breathing Jones Passed? No Pt Extubated per Provider? No SBT Failure Reason Patient Apnea Resp Transport Ventilator Start: 01/26/18 13: 19 Freq: NEEDED Status: Active Protocol: Document 01/26/18 13:20 RR (Rec: 01/26/18 13:20 [facility] [id number]) Respiratory Ventilator Transport Transported To CT MRI FIO2 (%) 100 O2 Sat (95-100) 100 Equipment Used Auto Vent Circuit Autovent/Transport Vent RT Airway Standby Per 30 Minutes 3 Safety Assess/[place] Fall Precautions Start: 01/25/18 23: 37 Freq: DOMINIC.DAILY@08&1999 Status: Active Protocol: Document 01/26/18 08:00 JL (Rec: 01/26/18 09:51 JL [id number]) Safety Assessment/[place] Fall Precautions Wristbands on Patient Identification Call Wesley Within Reach Patient Unable to Use Side Rails Up Four Bed Position Low Wheels Locked Maintain Safety/Univer Fall Precautions Bedside Table Cleared by Unused Equipment Removed IV Tube/Pump Non-Interfering Fresh Towel/Washcloth Linen Change Clutter Free Environment Update White Board Shift End Report - Communication Start: 01/25/18 23: 37 Freq: DOMINIC.QSHIFT Status: Active Protocol: Document 01/26/18 19:15 LJN (Rec: 01/26/18 19:37 [facility] [id number]) Communication: Shift End Repor Communication: Shift End Report Yes Spine/Pelvis Immobilization Management Start: 01/26/18 00: 55 Freq: Status: Active Protocol: Document 01/26/18 00:55 SMW (Rec: 01/26/18 00:59 SMW [id number]) Spine/Pelvis Immobilization Management Cervical Status Initial Application Initial Application Date 01/26/18 Cervical Collar Type [place] Other Cervical Collar [place]ha collar given for bath use Other Reason for Action c-spine held while EVAC collar removed and placed in [place] J per order Fabrication Pre-Fabricated Teaching Record Start: 01/25/18 23: 37 Freq: DOMINIC.DAILY@0400&1600 Status: Active Protocol: Document 01/26/18 04:00 MARY (Rec: 01/26/18 05:02 MARY [id number]) Teaching Record: General Teaching Stage Ongoing Barriers to Learning Level of Consciousness Teaching Methods Discussion Teaching Recipient Patient Treatment Plan Compliance Coping Strategies Infection Prevention Pain Management Wound Care Response to Teaching Reinforcement Needed Unable to Comprehend Document 01/26/18 16:00 LJN (Rec: 01/26/18 19:35 LJN [id number]) Teaching Record: General Teaching Stage Ongoing Teaching Methods Discussion Teaching Recipient Patient Teaching Record: Cardiac Teaching Stage Ongoing Barriers to Learning Level of Consciousness Teaching Recipient Patient Response to Teaching Reinforcement Needed Unable to Comprehend Teaching Record: Diabetes Teaching Stage Ongoing Barriers to Learning Level of Consciousness Teaching Methods Discussion Teaching Recipient Patient Response to Teaching Reinforcement Needed Unable to Comprehend Transport To / From Procedure Start: 01/25/18 23: 37 Freq: .Upon Transport Status: Active Protocol: Document 01/26/18 12:00 LJN (Rec: 01/26/18 19:42 LJN [id number]) Transportation To/From Procedure Transported To Procedure To/From Location MRI and CT Method of Transport Bed Transported by Nurse Respiratory Therapy Transporter Equipment Transported with Intravenous Fluids Monitor Oxygen Tank Portable Ventilator Other Equipment Transported with Patient In MRI and CT for approximately 1.5 to 2 hours. Turn, Cough, and Deep Breathe Start: 01/25/18 23: 37 Freq: DOMINIC.Q2H.E Status: Active Protocol: Document 01/26/18 00:00 KF (Rec: 01/26/18 01:19 KF [id number]) Document 01/26/18 02:00 KF (Rec: 01/26/18 02:26 KF [id number]) Document 01/26/18 04:00 MARY (Rec: 01/26/18 04:47 MARY [id number]) Document 01/26/18 06:00 KF (Rec: 01/26/18 06:08 KF [id number]) Document 01/26/18 08:00 JL (Rec: 01/26/18 09:51 JL [id number]) Document 01/26/18 10:00 JL (Rec: 01/26/18 10:23 JL [id number]) Document 01/26/18 12:00 LJN (Rec: 01/26/18 19:13 LJN [id number]) Document 01/26/18 14:00 LJN (Rec: 01/26/18 19:31 LJN [id number]) Document 01/26/18 16:00 LJN (Rec: 01/26/18 19:31 LJN [id number]) Document 01/26/18 18:00 LJN (Rec: 01/26/18 19:31 LJN [id number]) Document 01/26/18 20:00 MARY (Rec: 01/26/18 22:01 MARY [id number]) [place] [facility] Protocol Start: 01/26/18 00: 54 Freq: PCS.ROUTINE Status: Active Protocol: Document 01/26/18 08:00 JL (Rec: 01/26/18 09:51 JL [id number]) [place] [facility] [place] [facility] Steps MRSA Surveillance Screen on ICU Admission Initial Bath w/ Soap/Water w/ in 24 hours of Admission Initial Skin Assessment Yes [place] [facility] Protocol Day 1 - 5 Treatment Period Document 01/26/18 20:00 MARY (Rec: 01/26/18 22:02 MARY [id number]) [place] [facility] [facility] Protocol Day 1 - 5 Treatment Period VTE Prevention Start: 01/26/18 00: 54 Freq: PCS.ROUTINE Status: Active Protocol: Document 01/26/18 08:00 JL (Rec: 01/26/18 09:51 JL [id number]) VTE Prevention Device Status Continued Embolism Prevention Bilat: SCD Document 01/26/18 20:00 MARY (Rec: 01/26/18 22:01 MARY [id number]) VTE Prevention Device Status Continued Embolism Prevention Bilat: SCD Compression - Knee Visitation Assessment Start: 01/25/18 23: 37 Freq: PCS.PRN Status: Active Protocol: Document 01/26/18 16:00 LJN (Rec: 01/26/18 19:45 LJN [id number]) Visitation Assessment Visitor Relationship Friend(s) Other Interaction stated that patient has his child's mom, will notify her. no phone # Vital Signs Start: 01/26/18 00: 54 Freq: DOMINIC.Q4H.E Status: Active Protocol: Document 01/26/18 01:00 KF (Rec: 01/26/18 01:27 KF [id number]) Vital Signs Temperature (97.6 F-99.6 F) 97.1 F L Source Oral Pulse Rate (60-90) 55 L Method Monitor Respiratory Rate (12-24) 14 Effort Spontaneous Mechanically Ventilated Pulse Oximetry (95-100) 100 Blood Pressure (100/60-140/90) 115/64 Blood Pressure Mean (mmHg) 81 Blood Pressure Location Left Arm Source Automatic Cuff Patient Position Supine Document 01/26/18 04:00 MARY (Rec: 01/26/18 04:55 MARY [id number]) Vital Signs Temperature (97.6 F-99.6 F) 98.3 F Source Axillary Pulse Rate (60-90) 60 Method Monitor Respiratory Rate (12-24) 14 Effort Mechanically Ventilated Pulse Oximetry (95-100) 100 Blood Pressure (100/60-140/90) 109/66 Blood Pressure Mean (mmHg) 80 Blood Pressure Location Left Arm Source Automatic Cuff Patient Position Supine Document 01/26/18 08:00 JL (Rec: 01/26/18 09:54 JL [id number]) Vital Signs Temperature (97.6 F-99.6 F) 100.8 F H Source Core Pulse Rate (60-90) 56 L Method Monitor Respiratory Rate (12-24) 15 Effort Mechanically Ventilated Pulse Oximetry (95-100) 100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
[2018-01-26] MEDS: Oral Hygiene Kit OROPHARYNG SCH ×2 (18:26→23:28)
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
[2018-01-27] MEDS: Pantoprazole Inj 40 MG Vial IV.PUSH SCH (00:18)
[2018-01-27] MEDS: Multivitamin Inj 10 ML, Thiamine Inj 100 MG, Folic Acid Inj 1 MG in Sodium Chlor 0.9% I... IV.SIG SCH (02:36)
[2018-01-27] MEDS: Propofol 1000 mg/100 ml Inj 1,000 MG/100 ML BOTTLE IV.CONT PRN (03:41)
[2018-01-27] MEDS: Oral Hygiene Kit OROPHARYNG SCH ×2 (06:28→12:05)
[2018-01-27] MEDS: Chlorhexidine Gluconate 2% 1 Pack (2 Cloths) TOPICAL SCH (06:28)
[2018-01-27 06:54] LABS: Hematocrit 29.9 % (39.0-51.0); Hemoglobin 10.1 gm/dL (13.0-17.0); Lymph % (Auto) 12.4 % (9.0-44.0); Mean Corpuscular HGB Conc 33.8 % (32.0-36.0); Mean Corpuscular Hemoglobin 29.5 pg (27.0-34.0); Mean Corpuscular Volume 87.4 fL (80.0-100.0); Mean Platelet Volume 8.6 fL (7.0-11.0); Neut % (Auto) 77.5 % (16.0-70.0); Platelet Count 157 th/mm3 (150-450); Red Blood Count 3.43 mil/mm3 (4.50-5.90); Red Cell Distribution Width 13.5 % (11.6-17.2); White Blood Count 7.7 th/mm3 (4.0-11.0)
[2018-01-27 06:55] LABS: Baso % (Auto) 0.4 % (0.0-2.0); Eos % (Auto) 0.5 % (0.0-4.0); Mono # (Auto) 0.7 th/mm3 (0.0-0.9); Mono % (Auto) 9.2 % (0.0-8.0)
[2018-01-27 07:13] LABS: Albumin 2.5 g/dL (3.4-5.0); Anion Gap 9 meq/L (5-15); Aspartate Aminotransferase 74 U/L (15-37); Blood Urea Nitrogen 9 mg/dL (7-18); Calcium 7.9 mg/dL (8.5-10.1); Carbon Dioxide 25.9 meq/L (21.0-32.0); Chloride 111 meq/L (98-107); Glomerular Filtration Rate 80 mL/min (>89); Glucose,Random 85 mg/dL (74-106); Potassium 3.5 meq/L (3.5-5.1); Sodium 146 meq/L (136-145)
[2018-01-27 07:17] LABS: Alanine Aminotransferase 36 U/L (12-78); Alkaline Phosphatase 42 U/L (45-117); Total Protein 5.6 g/dL (6.4-8.2)
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
[2018-01-27] MEDS: Chlorhexidine 0.12% Oral Kit 15 ML UDC OROPHARYNG SCH (08:42)
[2018-01-27] MEDS: Senna/Docusate Sodium 8.6/50 MG Tablet PO SCH ×2 (08:42→23:39)
[2018-01-27] MEDS: Sod Chloride 0.9% Inj 1,000 ML IV.SIG SCH ×2 (08:43→23:30)
[2018-01-27] MEDS ORDERED: QUEtiapine 25 MG Tablet PO SCH (11:00)
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
[2018-01-27] MEDS: Morphine Inj 4 MG/ML Vial IV.PUSH PRN ×2 (17:33→21:53)
--- NOTE | 2018-01-27 19:05 | ECG ---
Date Performed: 01/26/2018 Time Performed: 15:27:46 PTAGE: 76 years EKG: Sinus bradycardia. Short ID interval Prolonged QT interval ST junctional depression is nons pecific Borderline ECG NO PREVIOUS TRACING DOCTOR: Denny Rodríguez Interpretating Date/Time 02/01/2018 07:06:50
[2018-01-27] MEDS: QUEtiapine 25 MG Tablet PO SCH (23:39)
[2018-01-28] MEDS: Pantoprazole Inj 40 MG Vial IV.PUSH SCH (00:35)
[2018-01-28] MEDS: Multivitamin Inj 10 ML, Thiamine Inj 100 MG, Folic Acid Inj 1 MG in Sodium Chlor 0.9% I... IV.SIG SCH (03:49)
[2018-01-28 04:36] LABS: Baso % (Auto) 0.2 % (0.0-2.0); Hematocrit 26.1 % (39.0-51.0); Hemoglobin 8.8 gm/dL (13.0-17.0); Lymph # (Auto) 0.6 th/mm3 (1.0-4.8); Lymph % (Auto) 4.2 % (9.0-44.0); Mean Corpuscular HGB Conc 33.8 % (32.0-36.0); Mean Corpuscular Hemoglobin 28.8 pg (27.0-34.0); Mean Corpuscular Volume 85.2 fL (80.0-100.0); Mean Platelet Volume 9.1 fL (7.0-11.0); Mono # (Auto) 0.6 th/mm3 (0.0-0.9); Mono % (Auto) 3.8 % (0.0-8.0); Neut # (Auto) 14.1 th/mm3 (1.8-7.7); Neut % (Auto) 91.8 % (16.0-70.0); Platelet Count 151 th/mm3 (150-450); Red Blood Count 3.07 mil/mm3 (4.50-5.90); Red Cell Distribution Width 13.2 % (11.6-17.2); White Blood Count 15.4 th/mm3 (4.0-11.0)
[2018-01-28] MEDS: Morphine Inj 4 MG/ML Vial IV.PUSH PRN ×5 (04:43→22:29)
[2018-01-28 04:51] LABS: Anion Gap 9 meq/L (5-15); Blood Urea Nitrogen 7 mg/dL (7-18); Calcium 7.9 mg/dL (8.5-10.1); Carbon Dioxide 27.5 meq/L (21.0-32.0); Chloride 107 meq/L (98-107); Glomerular Filtration Rate Greater Than 89 mL/min (>89); Glucose,Random 99 mg/dL (74-106); Potassium 3.1 meq/L (3.5-5.1); Sodium 143 meq/L (136-145)
[2018-01-28] MEDS: Chlorhexidine Gluconate 2% 1 Pack (2 Cloths) TOPICAL SCH (05:06)
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
[2018-01-28] MEDS: Sod Chloride 0.9% Inj 1,000 ML IV.SIG SCH ×2 (08:37→14:31)
[2018-01-28] MEDS ORDERED: Haloperidol Inj 5 MG/ML Ampul IV.PUSH PRN (10:00)
[2018-01-28] MEDS: Senna/Docusate Sodium 8.6/50 MG Tablet PO SCH ×2 (12:02→22:01)
[2018-01-28] MEDS: QUEtiapine 25 MG Tablet PO SCH ×2 (12:02→22:01)
[2018-01-28] MEDS ORDERED: Artificial Tears Opth Oint 3.5 GM Tube EACH EYE SCH (12:29)
--- NOTE | 2018-01-28 15:33 | P.PNNS ---
Subjective Interval history: 01/28: extubated, he has some gross elbow flexion movement in the arm, moving legs spontaneously. Physical Exam Vital signs: Vital Signs 01/27/18 16:00 01/27/18 18:10 01/27/18 20:00 Temperature 99.5 F 100.7 F H Pulse Rate 86 68 Respiratory Rate 26 H 23 Blood Pressure 137/73 136/78 Pulse Oximetry 97 100 99 01/27/18 20:30 01/27/18 21:23 01/27/18 22:00 Temperature Pulse Rate 79 70 Respiratory Rate 21 20 Blood Pressure Pulse Oximetry 95 01/28/18 00:00 01/28/18 02:00 01/28/18 03:43 Temperature 100.0 F H Pulse Rate 66 78 66 Respiratory Rate 20 20 Blood Pressure 140/78 Pulse Oximetry 99 01/28/18 04:00 01/28/18 06:00 01/28/18 08:00 Temperature 99.9 F H 99.3 F Pulse Rate 74 66 74 Respiratory Rate 22 28 H Blood Pressure 145/82 H 145/78 H Pulse Oximetry 96 96 01/28/18 09:00 01/28/18 12:00 Temperature 99.7 F H Pulse Rate 61 74 Respiratory Rate 22 28 H Blood Pressure 142/85 H Pulse Oximetry 100 96 Intake & Output 01/27/18 01/28/18 01/28/18 18:59 06:59 18:59 Intake Total 1525.2 / 1525.2 1205 / 1205 1616.2 / 1616.2 Output Total 925 / 925 1550 / 1550 Balance 600.2 / 600.2 -345 / -345 1616.2 / 1616.2 Weight 62.5 kg Intake: IV 1495.2 / 1495.2 1205 / 1205 1616.2 / 1616.2 Diprivan 1000 mg/100 ml Inj 1, 50 / 50 000 mg In 100 ml @ 5 MCG/KG/MIN 1.911 mls/hr IV.CONT TITRATE PRN Rx#:[id number] Ofirmev Inj 1,000 mg In 100 ml 100 / 100 @ 400 mls/hr IV.SIG Q6H PRN Rx# :[id number] MVI-12 Inj 10 ML Thiamine Inj 511.2 / 511.2 511.2 / 511.2 100 MG Folvite Inj 1 MG In NS Inj 500 ML @ 125 mls/hr IV.SIG Q24H [facility] Rx#:[id number] NS Inj 1,000 ML @ 100 mls/hr IV 800 / 800 1000 / 1000 1000 / 1000 .SIG .Q10H [facility] Rx#:[id number] fentaNYL 10 mcg/mL Premix Drip / 2,500 mcg In 250 ml @ 50 MCG/HR 5 mls/hr IV.SIG TITRATE PRN Rx #:[id number] Keppra Inj 500 MG In NS Inj 100 105 / 105 105 / 105 105 / 105 ML @ 400 mls/hr IV.SIG Q12H [facility] Rx#:[id number] Tube Irrigant 30 / 30 Output: Urine Amount (Catheter) 775 / 775 1550 / 1550 Indwelling Urethral Catheter 775 / 775 1550 / 1550 Gastric Drainage 150 / 150 Oral 150 / 150 Other: # Bowel Movements 0 0 Narrative: General: No obvious distress during examination. HEENT: Normocephalic. Normal conjunctiva. No nasal drainage. Gross hearing intact bilaterally. No ear drainage. Neck: No masses, no JVD. Trachea midline. Soft, supple, no meningismus or nuchal rigidity. Normal range of motion without pain Neuro: Awake, alert. Following simple commands. Cranial nerve examination: pupils to be equal, round, and reactive to light. Extra-ocular movements are intact with normal convergence. Facial motor function are normal and symmetrical. Other cranial nerves are intact. Deep tendon reflexes are absent biceps, triceps, and brachioradialis, bilaterally, in the upper extremities. In the lower extremities, the patellar and Achilles are trace, bilaterally. There is a bilateral plantar flexion response. Hoffmanns sign is negative. There is no clonus. Extremities: No obvious deformities. No clubbing. No peripheral edema. Upper extremity plegia, today he has gross minimal flexion in the elbows. In the lower extremities, moving lower extremities, cannot assess detail due to clinical condition. Lungs: clear bilaterally Heart: Regular rate and rhythm Abdomen: Soft, nontender. Positive bowel sounds Skin: Warm and dry, no cyanosis or erythema. - Urinary Catheter Management Indwelling Urethral Catheter Cath placed during this visit: yes, but has since been removed by the nurse Reason for continuing: Continue criteria not met Insertion date: 01/25/18 Removal date: 01/28/18 Removal time: 10:00 Assessment and Plan - Plan Impression TBI central cord syndrome cervical epidural hematoma possible cervical instability with ligamentous injury Head CT 01/25/18 22:47 CONCLUSION: 1. Questionable small amount of subdural blood along the left side of the tentorium and falx. Would recommend overnight observation and repeat CT scan of the head in the morning to ensure stability/resolution 2. Small cephalhematoma/laceration over the high convexity right frontoparietal scalp. Cervical Spine MRI 01/26/18 00:00 1. Disruption of the posterior longitudinal ligament located at the level atlantoaxial joint and posterior upper dens with abnormally prominent joint capsule with areas of high signal consistent with epidural hemorrhage. Mild mass effect on the upper cervical cord which is slightly flattened with no abnormal signal. The findings are of concern for possible instability at this level. 2. No evidence of acute fracture or malalignment on the exam. There is extensive paraspinal edema. PLAN: flexion extension xrays of the cervical spine to assess instability cont [place] collar PT, OT critical care mgt neuro checks
--- NOTE | 2018-01-28 16:05 | XR ---
EXAM DATE: 01/28/2018 3:54 PM EDT AGE/SEX: 89 years / Male INDICATIONS: Evaluate mobility, ligament injury. CLINICAL DATA: This is the patient's initial encounter. Patient reports that signs and symptoms have been present for 4 - 6 days and indicates a pain score of 10/10. MEDICAL/SURGICAL HISTORY: Non-responsive. Non-responsive. COMPARISON: No prior exams available for comparison. FINDINGS: Lateral views of the cervical spine were obtained with flexion and extension. The alignment remains s table and intact. The prevertebral soft tissues within normal limits. The atlantal axial relationship is stable and unremarkable. The dens is intact and there is no underlying bony abnormality. Degenera tive disc changes are present at the C4-5 through C7-T1 levels with disc space narrowing and mild hyp ertrophic change. CONCLUSION: 1. Normal alignment and no abnormal mobility. 2. Degenerative disc change. Electronically signed by: Anthony Funes MD 01/28/2018 4:04 PM EDT
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
[2018-01-29] MEDS: Pantoprazole Inj 40 MG Vial IV.PUSH SCH (01:16)
[2018-01-29] MEDS: Sod Chloride 0.9% Inj 1,000 ML IV.SIG SCH ×4 (01:16→21:14)
[2018-01-29] MEDS: Morphine Inj 4 MG/ML Vial IV.PUSH PRN ×5 (02:34→21:14)
[2018-01-29] MEDS: Chlorhexidine Gluconate 2% 1 Pack (2 Cloths) TOPICAL SCH (03:55)
[2018-01-29 04:32] LABS: Baso % (Auto) 0.2 % (0.0-2.0); Hematocrit 27.8 % (39.0-51.0); Hemoglobin 9.4 gm/dL (13.0-17.0); Lymph # (Auto) 0.5 th/mm3 (1.0-4.8); Lymph % (Auto) 3.2 % (9.0-44.0); Mean Corpuscular HGB Conc 33.9 % (32.0-36.0); Mean Corpuscular Hemoglobin 29.1 pg (27.0-34.0); Mean Corpuscular Volume 85.7 fL (80.0-100.0); Mean Platelet Volume 9.3 fL (7.0-11.0); Mono # (Auto) 0.8 th/mm3 (0.0-0.9); Mono % (Auto) 5.3 % (0.0-8.0); Neut % (Auto) 91.3 % (16.0-70.0); Platelet Count 186 th/mm3 (150-450); Red Blood Count 3.24 mil/mm3 (4.50-5.90); Red Cell Distribution Width 13.5 % (11.6-17.2); White Blood Count 14.3 th/mm3 (4.0-11.0)
[2018-01-29 05:03] LABS: Anion Gap 11 meq/L (5-15); Blood Urea Nitrogen 12 mg/dL (7-18); Calcium 8.3 mg/dL (8.5-10.1); Carbon Dioxide 25.5 meq/L (21.0-32.0); Chloride 106 meq/L (98-107); Glomerular Filtration Rate Greater Than 89 mL/min (>89); Glucose,Random 81 mg/dL (74-106); Potassium 3.1 meq/L (3.5-5.1); Sodium 142 meq/L (136-145)
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
[2018-01-29] MEDS: QUEtiapine 25 MG Tablet PO SCH (08:39)
[2018-01-29] MEDS: Potassium Chlor 20 mEq Premix 20 MEQ/100 ML PIGGYBACK IV.SIG SCH ×2 (08:39→11:04)
[2018-01-29] MEDS: Senna/Docusate Sodium 8.6/50 MG Tablet PO SCH ×2 (08:39→20:56)
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
[2018-01-29] MEDS: Enoxaparin Inj 40 MG/0.4 ML Syringe SQ SCH (11:04)
[2018-01-29] MEDS ORDERED: Gadobenate Dimeglumine PF Inj 10 ML VIAL (for RAD MRI) IVCONTRAST ONE (12:52)
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
[2018-01-30] MEDS: Pantoprazole Inj 40 MG Vial IV.PUSH SCH (00:21)
[2018-01-30] MEDS: Morphine Inj 4 MG/ML Vial IV.PUSH PRN ×5 (02:15→20:30)
[2018-01-30 06:47] LABS: Baso % (Auto) 0.2 % (0.0-2.0); Eos % (Auto) 0.1 % (0.0-4.0); Hematocrit 29.1 % (39.0-51.0); Lymph # (Auto) 0.6 th/mm3 (1.0-4.8); Mean Corpuscular HGB Conc 34.2 % (32.0-36.0); Mean Corpuscular Hemoglobin 29.3 pg (27.0-34.0); Mean Corpuscular Volume 85.8 fL (80.0-100.0); Mean Platelet Volume 9.2 fL (7.0-11.0); Mono # (Auto) 0.8 th/mm3 (0.0-0.9); Mono % (Auto) 6.6 % (0.0-8.0); Neut # (Auto) 11.1 th/mm3 (1.8-7.7); Neut % (Auto) 88.1 % (16.0-70.0); Platelet Count 197 th/mm3 (150-450); Red Blood Count 3.39 mil/mm3 (4.50-5.90); Red Cell Distribution Width 13.7 % (11.6-17.2); White Blood Count 12.6 th/mm3 (4.0-11.0)
[2018-01-30 07:15] LABS: Anion Gap 7 meq/L (5-15); Blood Urea Nitrogen 14 mg/dL (7-18); Calcium 7.8 mg/dL (8.5-10.1); Carbon Dioxide 29.3 meq/L (21.0-32.0); Chloride 108 meq/L (98-107); Glomerular Filtration Rate Greater Than 89 mL/min (>89); Glucose,Random 108 mg/dL (74-106); Potassium 3.1 meq/L (3.5-5.1); Sodium 144 meq/L (136-145)
[2018-01-30] MEDS: Potassium Chloride 25 MEQ Effervescent Tablet PO SCH (08:55)
[2018-01-30] MEDS: QUEtiapine 25 MG Tablet PO SCH ×3 (08:56→21:00)
[2018-01-30] MEDS: Senna/Docusate Sodium 8.6/50 MG Tablet PO SCH ×2 (08:56→20:24)
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
[2018-01-30] MEDS: Enoxaparin Inj 40 MG/0.4 ML Syringe SQ SCH (11:00)
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
[2018-01-30] MEDS ORDERED: ceFAZolin 2 GM Premix Inj 2 GM/50 ML PIGGYBACK IV.SIG PRN (13:44)
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
[2018-01-30] MEDS ORDERED: Potassium Chloride 25 MEQ Effervescent Tablet PO ONE (18:00)
[2018-01-31] MEDS: Morphine Inj 4 MG/ML Vial IV.PUSH PRN ×3 (00:49→23:14)
[2018-01-31] MEDS: Pantoprazole Inj 40 MG Vial IV.PUSH SCH (00:50)
[2018-01-31 07:17] LABS: Anion Gap 7 meq/L (5-15); Blood Urea Nitrogen 17 mg/dL (7-18); Calcium 7.5 mg/dL (8.5-10.1); Carbon Dioxide 26.2 meq/L (21.0-32.0); Chloride 109 meq/L (98-107); Glomerular Filtration Rate Greater Than 89 mL/min (>89); Glucose,Random 126 mg/dL (74-106); Potassium 3.8 meq/L (3.5-5.1); Sodium 142 meq/L (136-145)
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
[2018-01-31] MEDS: Potassium Chloride 25 MEQ Effervescent Tablet PO SCH (09:14)
[2018-01-31] MEDS: Senna/Docusate Sodium 8.6/50 MG Tablet PO SCH ×2 (09:14→21:40)
[2018-01-31] MEDS: QUEtiapine 25 MG Tablet PO SCH ×2 (09:15→21:42)
[2018-01-31] MEDS: Enoxaparin Inj 40 MG/0.4 ML Syringe SQ SCH (10:04)
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
[2018-01-31 15:22] LABS: Hematocrit 23.8 % (39.0-51.0); Hemoglobin 8.4 gm/dL (13.0-17.0); Mean Corpuscular HGB Conc 35.5 % (32.0-36.0); Mean Corpuscular Hemoglobin 30.3 pg (27.0-34.0); Mean Corpuscular Volume 85.3 fL (80.0-100.0); Mean Platelet Volume 9.1 fL (7.0-11.0); Platelet Count 174 th/mm3 (150-450); Red Blood Count 2.79 mil/mm3 (4.50-5.90); White Blood Count 8.4 th/mm3 (4.0-11.0)
[2018-01-31 15:33] LABS: INR 1.1 Ratio
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
[2018-02-01] MEDS: Pantoprazole Inj 40 MG Vial IV.PUSH SCH (01:00)
[2018-02-01] MEDS: Morphine Inj 4 MG/ML Vial IV.PUSH PRN ×3 (02:32→16:59)
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
[2018-02-01] MEDS: Potassium Chloride 25 MEQ Effervescent Tablet PO SCH (10:05)
[2018-02-01] MEDS: Senna/Docusate Sodium 8.6/50 MG Tablet PO SCH ×2 (10:06→20:56)
--- NOTE | 2018-02-01 11:23 | GIPROC ---
[facility] [address]. [facility], [address] EGD WITH PEG PROCEDURE REPORT EXAM DATE: 02/01/2018 PATIENT NAME: Cachorro Quinones MR#: [id number] BIRTHDATE: 1955 ATTENDING: Jose David Galdamez MD ORDER #: [id number] CARDIOLOGY CONSULTANTS: Khalida Piedra Solis, J. Daniel, and Sia Gil STATUS: inpatient INDICATIONS: The patient is a 62 yr old male here for an EGD with PEG due to dysphagia PROCEDURE PERFORMED: EGD with PEG placement MEDICATIONS: None and Per Anesthesia. TOPICAL ANESTHETIC: CONSENT: The patient understands the risks and benefits of the procedure and understands that these risks include, but are not limited to: sedation, allergic reaction, infection, perforation and/or bleeding. Alternative means of evaluation and treatment include, among others: physical exam, x-rays, and/or surgical intervention. The patient elects to proceed with this endoscopic procedure. medical equipment was checked for proper function. Hand hygiene and appropriate measures for infection prevention was taken. After the risks, benefits and alternatives of the procedure were thoroughly explained, Informed consent was verified, confirmed and timeout was successfully executed by the treatment team. The patient was anesthetized with topical anesthesia and the Pentax [id number] endoscope was introduced through the mouth and advanced to the descending duodenum. The instrument was slowly withdrawn as the mucosa was fully examined. Inflammation was found in the body and the antrum of the stomach. The stomach was then inflated with air, and by a combination of transillumination and manual palpation, the site for the gastrostomy tube placement was selected and marked on the anterior abdominal wall. The skin of the anterior abdomen was surgically prepped and draped with sterile towels. Utilizing strict sterile technique, the selected site was then anesthetized with 1% xylocaine by injection into the skin and subcutaneous tissue. A 1 cm incision was made through the skin and subcutaneous tissue, and the needle/cannula assembly was then passed through the abdominal wall and through the anterior wall of the stomach, maintaining visualization with the endoscope. A snare device previously placed through the instrument channel was then opened and placed around the cannula, the needle was removed, and the insertion wire was passed through the cannula and into the stomach lumen. The snare was then loosened from the cannula, and repositioned to snare the insertion wire. The snare was then pulled up to the endoscope distal tip, and the scope was then withdrawn bringing with it the snare and insertion wire. The insertion wire was then released from the snare, and then loop-attached to the [place] 20 Fr gastrostomy tube. Using the "pull technique", the G-tube was then pulled into place by traction on the insertion wire at the abdominal wall end. The G-tube insertion site was then cleansed once again, and the external bolster was placed over the tube to secure it to the abdominal wall. A sterile dressing was then applied, and the procedure terminated. no abnormalities The gastroscope was then slowly withdrawn and removed. ADVERSE EVENT: There were no complications. IMPRESSIONS: 1. Inflammation was found in the body and the antrum of the stomach 2. No abnormalities RECOMMENDATIONS: PEG recomendations: 1- NPO for 6 hours except for meds 2- Flush PEG tube every 6 hours with water and after each PEG feeding 3- May resume regular diet in the morning 4- May use Ensure or Boost etc. for PEG tube feeding REPEAT EXAM: procedure as needed Jose David Galdamez MD eSigned: Jose David Galdamez MD 02/01/2018 11:23 AM cc: PATIENT NAME: Cachorro Quinones MR#: [id number]
[2018-02-01] MEDS ORDERED: Lidocaine PF 1% Inj 5 ML Syringe INFILTRATN ONE (12:00)
[2018-02-01] MEDS: QUEtiapine 25 MG Tablet PO SCH ×2 (15:43→20:56)
[2018-02-02] MEDS: Pantoprazole Inj 40 MG Vial IV.PUSH SCH (01:51)
[2018-02-02 04:38] LABS: Baso % (Auto) 0.3 % (0.0-2.0); Eos % (Auto) 0.6 % (0.0-4.0); Hematocrit 30.5 % (39.0-51.0); Hemoglobin 10.3 gm/dL (13.0-17.0); Lymph # (Auto) 0.8 th/mm3 (1.0-4.8); Lymph % (Auto) 8.7 % (9.0-44.0); Mean Corpuscular HGB Conc 33.7 % (32.0-36.0); Mean Corpuscular Hemoglobin 29.3 pg (27.0-34.0); Mean Platelet Volume 9.6 fL (7.0-11.0); Mono # (Auto) 0.6 th/mm3 (0.0-0.9); Mono % (Auto) 6.9 % (0.0-8.0); Neut # (Auto) 7.2 th/mm3 (1.8-7.7); Neut % (Auto) 83.5 % (16.0-70.0); Platelet Count 267 th/mm3 (150-450); Red Blood Count 3.51 mil/mm3 (4.50-5.90); Red Cell Distribution Width 13.6 % (11.6-17.2); White Blood Count 8.7 th/mm3 (4.0-11.0)
[2018-02-02 04:41] LABS: Anion Gap 7 meq/L (5-15); Blood Urea Nitrogen 17 mg/dL (7-18); Calcium 8.1 mg/dL (8.5-10.1); Carbon Dioxide 26.6 meq/L (21.0-32.0); Chloride 106 meq/L (98-107); Glomerular Filtration Rate Greater Than 89 mL/min (>89); Glucose,Random 76 mg/dL (74-106); Potassium 4.3 meq/L (3.5-5.1); Sodium 140 meq/L (136-145)
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
[2018-02-02] MEDS: QUEtiapine 25 MG Tablet PO SCH ×2 (08:48→21:30)
[2018-02-02] MEDS: Senna/Docusate Sodium 8.6/50 MG Tablet PO SCH ×2 (08:48→21:30)
[2018-02-02] MEDS: Morphine Inj 4 MG/ML Vial IV.PUSH PRN ×2 (08:49→14:59)
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
[2018-02-02] MEDS: Enoxaparin Inj 40 MG/0.4 ML Syringe SQ SCH (14:59)
--- NOTE | 2018-02-02 15:03 | P.PNNS ---
Subjective Interval history: 02/02: didn't see yesterday as was out getting PEG. today he is moving his arms more. c/o collar not fitting well and slipping off. Physical Exam Vital signs: Vital Signs 02/01/18 16:00 02/01/18 20:00 02/01/18 20:12 Temperature 99.0 F 98.5 F Pulse Rate 72 66 Respiratory Rate 22 19 19 Blood Pressure 135/77 134/77 Pulse Oximetry 99 93 L 02/02/18 00:00 02/02/18 04:00 Temperature 98.4 F 98.8 F Pulse Rate 71 78 Respiratory Rate 18 18 Blood Pressure 126/78 132/76 Pulse Oximetry 95 95 Intake & Output 02/01/18 02/02/18 02/02/18 18:59 06:59 18:59 Intake Total 505 / 505 Output Total 1250 / 1250 550 / 550 Balance -745 / -745 -550 / -550 Weight 63.7 kg Intake: IV 105 / 105 Keppra Inj 500 MG In NS Inj 100 105 / 105 ML @ 400 mls/hr IV.SIG Q12H [facility] Rx#:[id number] Anesthesia Amount 400 / 400 Output: Urine 1250 / 1250 550 / 550 Other: Date of Last Bowel Movement 02/01/18 # Bowel Movements 1 Narrative: GENERAL: no acute distress. SKIN: Warm and dry. HEAD: Normocephalic. EYES: Pupils equal and round. No scleral icterus. ENT: No nasal bleeding or discharge. NECK: Trachea midline. No JVD. [place] J collar in place. CARDIOVASCULAR: Regular rate and rhythm. RESPIRATORY: No accessory muscle use. Lungs clear to auscultation. Breath sounds equal bilaterally. GASTROINTESTINAL: Abdomen soft, non-tender MUSCULOSKELETAL: Extremities without cyanosis, gross elbow flexion, slight movement in fingers. moves lower extremities 5/5 NEUROLOGICAL: Awake and alert. Garbled speech. Follows simple commands. - Urinary Catheter Management Indwelling Urethral Catheter Cath placed during this visit: yes, but has since been removed by the nurse Reason for continuing: Hourly intake/output Insertion date: 01/25/18 Removal date: 01/28/18 Removal time: 10:00 Assessment and Plan - Plan Impression: TBI C1-2 epidural hematoma, poss ligamentous injury, stable flexion/extension c- spine xrays without instability central cord syndrome Cervical Spine CT 01/25/18 22:47 CONCLUSION: 1. Mild multilevel degenerative disc disease with some loss of disc height and uncovertebral ridging from C4-5 through C6-7. 2. No acute fracture or listhesis. Spinal canal and neural foramina appear to be adequate throughout. Cervical Spine MRI 01/26/18 00:00 CONCLUSION: 1. Disruption of the posterior longitudinal ligament located at the level atlantoaxial joint and posterior upper dens with abnormally prominent joint capsule with areas of high signal consistent with epidural hemorrhage. Mild mass effect on the upper cervical cord which is slightly flattened with no abnormal signal. The findings are of concern for possible instability at this level. 2. No evidence of acute fracture or malalignment on the exam. There is extensive paraspinal edema. Head CT 01/26/18 09:00 CONCLUSION: 1. Persistent questionable hyperdensity in the expected region of the left tentorium suggesting possible tiny acute subdural hematoma which is stable. MRI may be helpful for confirmation if clinically indicated. . Cervical Spine X-Ray 01/28/18 11:07 CONCLUSION: 1. Normal alignment and no abnormal mobility. 2. Degenerative disc change. Head MRI 01/29/18 00:00 CONCLUSION: 1. Minimal hemorrhage relative matter junction most evident in the occipital regions worse on the left. 2. Trace subdural fluid probably subacute blood 3. There is no midline shift 4. Posterior fossa unremarkable Plan: cont maintain cervical collar cont PT, OT cont neuro checks request orthopedic technician to reevaluate collar
[2018-02-03] MEDS: Morphine Inj 4 MG/ML Vial IV.PUSH PRN ×5 (00:30→19:56)
[2018-02-03] MEDS: Pantoprazole Inj 40 MG Vial IV.PUSH SCH (00:31)
[2018-02-03] MEDS: Senna/Docusate Sodium 8.6/50 MG Tablet PO SCH ×2 (08:43→23:51)
[2018-02-03] MEDS: QUEtiapine 25 MG Tablet PO SCH ×2 (08:43→23:52)
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
[2018-02-03] MEDS: Enoxaparin Inj 40 MG/0.4 ML Syringe SQ SCH (12:02)
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
[2018-02-04] MEDS: Morphine Inj 4 MG/ML Vial IV.PUSH PRN ×4 (03:32→23:57)
[2018-02-04] MEDS: Pantoprazole Inj 40 MG Vial IV.PUSH SCH (08:24)
[2018-02-04] MEDS: QUEtiapine 25 MG Tablet PO SCH ×2 (09:20→20:32)
[2018-02-04] MEDS: Senna/Docusate Sodium 8.6/50 MG Tablet PO SCH ×2 (09:25→20:32)
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
[2018-02-04] MEDS: Enoxaparin Inj 40 MG/0.4 ML Syringe SQ SCH (11:39)
[2018-02-05] MEDS: Pantoprazole Inj 40 MG Vial IV.PUSH SCH (02:10)
[2018-02-05] MEDS: Morphine Inj 4 MG/ML Vial IV.PUSH PRN ×6 (03:15→23:37)
[2018-02-05] MEDS: QUEtiapine 25 MG Tablet PO SCH ×2 (08:44→21:28)
[2018-02-05] MEDS: Senna/Docusate Sodium 8.6/50 MG Tablet PO SCH (08:44)
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
[2018-02-05] MEDS: Enoxaparin Inj 40 MG/0.4 ML Syringe SQ SCH (13:12)
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
[2018-02-06] MEDS: Senna/Docusate Sodium 8.6/50 MG Tablet PO SCH ×3 (05:32→20:37)
[2018-02-06] MEDS: Pantoprazole Inj 40 MG Vial IV.PUSH SCH (05:33)
[2018-02-06] MEDS: Morphine Inj 4 MG/ML Vial IV.PUSH PRN ×6 (06:31→22:12)
[2018-02-06] MEDS: QUEtiapine 25 MG Tablet PO SCH ×2 (08:41→20:37)
[2018-02-06] MEDS: Enoxaparin Inj 40 MG/0.4 ML Syringe SQ SCH (10:28)
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
[2018-02-07] MEDS: Pantoprazole Inj 40 MG Vial IV.PUSH SCH (00:49)
[2018-02-07] MEDS: Morphine Inj 4 MG/ML Vial IV.PUSH PRN ×6 (03:18→23:37)
[2018-02-07] MEDS: Senna/Docusate Sodium 8.6/50 MG Tablet PO SCH ×2 (09:18→20:18)
[2018-02-07] MEDS: QUEtiapine 25 MG Tablet PO SCH ×2 (09:18→20:18)
[2018-02-07] MEDS: Enoxaparin Inj 40 MG/0.4 ML Syringe SQ SCH (11:06)
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
[2018-02-08] MEDS: Pantoprazole Inj 40 MG Vial IV.PUSH SCH (01:00)
[2018-02-08] MEDS: Morphine Inj 4 MG/ML Vial IV.PUSH PRN ×5 (05:13→20:21)
[2018-02-08] MEDS: Senna/Docusate Sodium 8.6/50 MG Tablet PO SCH ×2 (08:27→20:21)
[2018-02-08] MEDS: QUEtiapine 25 MG Tablet PO SCH ×2 (08:27→20:21)
[2018-02-08] MEDS: Enoxaparin Inj 40 MG/0.4 ML Syringe SQ SCH (10:00)
--- NOTE | 2018-02-08 11:14 | FL ---
EXAM DATE: 02/08/2018 11:04 AM EDT AGE/SEX: 62 years / Male INDICATIONS: Dysphagia. CLINICAL DATA: This is the patient's initial encounter. Patient reports that signs and symptoms have been present for 2 weeks and indicates a pain score of 8/10. MEDICAL/SURGICAL HISTORY: None. None. COMPARISON: [facility] [place], CT HEAD W/O CONTRAST, 01/26/2018. . FLUORO TIME: 3.1 IMAGE COUNT: 0 FINDINGS: A modified barium swallow was performed with speech pathology. Patient was given a variety of liquids to swallow. For a full detailed report, see report by the speech pathologist. CONCLUSION: Diminished oral motor control and pharyngeal stasis. Multiple episodes of laryngeal penetration with an episode of aspiration also noted. See speech pathology report Electronically signed by: Herbie Wright MD 02/08/2018 11:12 AM EDT
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
[2018-02-09] MEDS: Pantoprazole Inj 40 MG Vial IV.PUSH SCH (00:30)
[2018-02-09] MEDS: Morphine Inj 4 MG/ML Vial IV.PUSH PRN ×6 (00:31→22:08)
[2018-02-09] MEDS: QUEtiapine 25 MG Tablet PO SCH ×2 (08:22→20:26)
[2018-02-09] MEDS: Senna/Docusate Sodium 8.6/50 MG Tablet PO SCH ×2 (08:22→20:25)
[2018-02-09] MEDS: Enoxaparin Inj 40 MG/0.4 ML Syringe SQ SCH (10:02)
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
[2018-02-10] MEDS: Pantoprazole Inj 40 MG Vial IV.PUSH SCH (01:21)
[2018-02-10] MEDS: Morphine Inj 4 MG/ML Vial IV.PUSH PRN ×7 (01:22→21:29)
[2018-02-10] MEDS: QUEtiapine 25 MG Tablet PO SCH ×2 (08:00→21:28)
[2018-02-10] MEDS: Senna/Docusate Sodium 8.6/50 MG Tablet PO SCH ×2 (08:01→21:29)
[2018-02-10] MEDS: Enoxaparin Inj 40 MG/0.4 ML Syringe SQ SCH (11:27)
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
[2018-02-11] MEDS: Pantoprazole Inj 40 MG Vial IV.PUSH SCH (00:18)
[2018-02-11] MEDS: Morphine Inj 4 MG/ML Vial IV.PUSH PRN ×7 (03:10→21:42)
[2018-02-11] MEDS: QUEtiapine 25 MG Tablet PO SCH ×2 (09:04→21:09)
[2018-02-11] MEDS: Senna/Docusate Sodium 8.6/50 MG Tablet PO SCH ×2 (09:08→21:09)
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
[2018-02-11] MEDS: Enoxaparin Inj 40 MG/0.4 ML Syringe SQ SCH (12:25)
[2018-02-11] MEDS: Sertraline 50 MG Tablet PO SCH (15:29)
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
[2018-02-12] MEDS: Morphine Inj 4 MG/ML Vial IV.PUSH PRN ×4 (01:59→19:56)
[2018-02-12] MEDS: Pantoprazole Inj 40 MG Vial IV.PUSH SCH (01:59)
[2018-02-12] MEDS: QUEtiapine 25 MG Tablet PO SCH ×2 (08:57→20:05)
[2018-02-12] MEDS: Sertraline 50 MG Tablet PO SCH (08:57)
[2018-02-12] MEDS: Senna/Docusate Sodium 8.6/50 MG Tablet PO SCH ×2 (08:57→20:05)
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
[2018-02-12] MEDS: Enoxaparin Inj 40 MG/0.4 ML Syringe SQ SCH (10:38)
[2018-02-13] MEDS: Pantoprazole Inj 40 MG Vial IV.PUSH SCH (01:35)
[2018-02-13] MEDS: Morphine Inj 4 MG/ML Vial IV.PUSH PRN ×4 (01:35→18:14)
[2018-02-13] MEDS: Senna/Docusate Sodium 8.6/50 MG Tablet PO SCH ×2 (09:09→21:08)
[2018-02-13] MEDS: Sertraline 50 MG Tablet PO SCH (09:09)
[2018-02-13] MEDS: QUEtiapine 25 MG Tablet PO SCH ×2 (09:09→21:08)
[2018-02-13] MEDS: Enoxaparin Inj 40 MG/0.4 ML Syringe SQ SCH (10:31)
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
[2018-02-14] MEDS: Pantoprazole Inj 40 MG Vial IV.PUSH SCH
[2018-02-14] MEDS: Morphine Inj 4 MG/ML Vial IV.PUSH PRN ×5 (03:16→22:02)
[2018-02-14] MEDS: QUEtiapine 25 MG Tablet PO SCH ×2 (08:49→20:28)
[2018-02-14] MEDS: Sertraline 50 MG Tablet PO SCH (08:49)
[2018-02-14] MEDS: Senna/Docusate Sodium 8.6/50 MG Tablet PO SCH ×2 (10:01→20:28)
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
[2018-02-14] MEDS: Enoxaparin Inj 40 MG/0.4 ML Syringe SQ SCH (12:19)
[2018-02-15] MEDS: Pantoprazole Inj 40 MG Vial IV.PUSH SCH (02:08)
[2018-02-15] MEDS: Morphine Inj 4 MG/ML Vial IV.PUSH PRN ×2 (04:25→20:23)
[2018-02-15] MEDS: Sertraline 50 MG Tablet PO SCH (08:26)
[2018-02-15] MEDS: QUEtiapine 25 MG Tablet PO SCH ×2 (08:26→20:20)
[2018-02-15] MEDS: Senna/Docusate Sodium 8.6/50 MG Tablet PO SCH ×2 (08:28→20:20)
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
[2018-02-15] MEDS: Enoxaparin Inj 40 MG/0.4 ML Syringe SQ SCH (10:25)
[2018-02-16] MEDS: Pantoprazole Inj 40 MG Vial IV.PUSH SCH (00:16)
[2018-02-16] MEDS: Morphine Inj 4 MG/ML Vial IV.PUSH PRN ×3 (00:16→22:31)
[2018-02-16] MEDS: QUEtiapine 25 MG Tablet PO SCH ×2 (08:24→20:14)
[2018-02-16] MEDS: Sertraline 50 MG Tablet PO SCH (08:26)
[2018-02-16] MEDS: Senna/Docusate Sodium 8.6/50 MG Tablet PO SCH ×2 (08:26→20:14)
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
[2018-02-16] MEDS: Enoxaparin Inj 40 MG/0.4 ML Syringe SQ SCH (11:00)
--- NOTE | 2018-02-16 15:37 | P.PNREH ---
Subjective Interval history: Patient sitting up in bedside chair. Left sling is in place. Patient denies any pain complaints. Condom catheter is in place. Patient denies any constipation. He is continent of bowel. Feels that his upper and lower extremities are improving with more rapid improvement in the lower extremities and upper extremities. Review of Systems All other systems reviewed negative except as stated in HPI Exam - Physical Examination Vital Signs / I&O: Vital Signs 02/15/18 16:00 02/15/18 20:00 02/16/18 00:00 Temperature 98 F 98.1 F 99 F Pulse Rate 70 62 Respiratory Rate 16 20 15 Blood Pressure 118/81 108/70 106/70 Pulse Oximetry 95 95 97 02/16/18 04:00 02/16/18 04:32 02/16/18 07:17 Temperature Pulse Rate 69 Respiratory Rate 15 Blood Pressure Pulse Oximetry 97 02/16/18 08:00 Temperature 97.8 F Pulse Rate 60 Respiratory Rate 60 H Blood Pressure 127/76 Pulse Oximetry 94 L Intake & Output 02/15/18 02/16/18 02/16/18 18:59 06:59 18:59 Intake Total 200 / 200 Output Total 700 / 700 Balance -500 / -500 Weight 64 kg Intake: Oral 200 / 200 Output: Urine 700 / 700 Other: Date of Last Bowel Movement 02/14/18 02/15/18 02/16/18 Intake & Output 02/14/18 02/15/18 02/16/18 02/17/18 06:59 06:59 06:59 06:59 Intake Total 760 / 760 720 / 720 200 / 200 Output Total 2150 / 2150 1800 / 1800 700 / 700 Balance -1390 / -1390 -1080 / -1080 -500 / -500 Weight 64.5 kg 64.5 kg 64 kg General: No acute distress Date of Last Bowel Movement: 02/16/18 Cardiovascular: No edema Skin: No rash Psychiatric: Cooperative, Other (Occasionally tearful) - Neurologic Orientation: oriented to: Self, Situation Neurologic: Speech (Voice volume has improved as has fluency and clarity) Motor: Right Upper Extremity (Proximally 3/5; distally 4/5), Left Upper Extremity (Proximally 3/5; distally 4/5), Right Lower Extremity (4+/5), Left Lower Extremity (4+/5) Assessment and Plan (1) Central cord syndrome Status: Acute Code(s): S14.129A - Central cord syndrome at unspecified level of cervical spinal cord, initial encounter Qualifiers: Encounter type: initial encounter Qualified Code(s): S14.129A - Central cord syndrome at unspecified level of cervical spinal cord, initial encounter - Plan Assessment: 1. Closed head injury 2. Central cord injury with quadriparesis 3. Impaired mobility and ADLs due to above Recommendations: 1. Physical therapy is mobilizing patient is now contact guard for transfers and ambulate 300 feet contact guard with fair plus balance and no device. Anticipate patient should continue to progress with independence for mobility 2. Occupational Therapy addressing ADLs and moderate assist for feeding and maximal assistance for the remainder of self-care ADLs 3. Speech therapy has evaluated swallow and tolerating mechanical soft diet with nectar thick liquids 4. Continue Lovenox for DVT prophylaxis 5. Case management is addressing discharge planning. No family has been identified. Case management/patient are contacting friend in the community for possible assistance at discharge. 6. Will follow while hospitalized on is appropriate at discharge
[2018-02-17] MEDS: Pantoprazole Inj 40 MG Vial IV.PUSH SCH (00:44)
[2018-02-17] MEDS: Morphine Inj 4 MG/ML Vial IV.PUSH PRN ×5 (05:46→22:02)
[2018-02-17 07:50] LABS: Baso # (Auto) 0.1 th/mm3 (0.0-0.2); Baso % (Auto) 1.5 % (0.0-2.0); Eos # (Auto) 0.1 th/mm3 (0.0-0.4); Eos % (Auto) 3.6 % (0.0-4.0); Hematocrit 29.5 % (39.0-51.0); Hemoglobin 10.1 gm/dL (13.0-17.0); Lymph # (Auto) 0.9 th/mm3 (1.0-4.8); Lymph % (Auto) 24.3 % (9.0-44.0); Mean Corpuscular HGB Conc 34.3 % (32.0-36.0); Mean Corpuscular Hemoglobin 29.9 pg (27.0-34.0); Mean Corpuscular Volume 87.2 fL (80.0-100.0); Mean Platelet Volume 9.4 fL (7.0-11.0); Mono # (Auto) 0.4 th/mm3 (0.0-0.9); Mono % (Auto) 9.7 % (0.0-8.0); Neut # (Auto) 2.4 th/mm3 (1.8-7.7); Neut % (Auto) 60.9 % (16.0-70.0); Platelet Count 249 th/mm3 (150-450); Red Blood Count 3.39 mil/mm3 (4.50-5.90); White Blood Count 3.9 th/mm3 (4.0-11.0)
[2018-02-17] MEDS: Senna/Docusate Sodium 8.6/50 MG Tablet PO SCH ×2 (08:33→21:21)
[2018-02-17] MEDS: QUEtiapine 25 MG Tablet PO SCH ×2 (08:33→21:06)
[2018-02-17] MEDS: Sertraline 50 MG Tablet PO SCH (08:35)
[2018-02-17] MEDS: Enoxaparin Inj 40 MG/0.4 ML Syringe SQ SCH (10:11)
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
[2018-02-18] MEDS: Pantoprazole Inj 40 MG Vial IV.PUSH SCH (01:20)
[2018-02-18] MEDS: Morphine Inj 4 MG/ML Vial IV.PUSH PRN ×6 (02:44→23:57)
[2018-02-18] MEDS: Sertraline 50 MG Tablet PO SCH (09:18)
[2018-02-18] MEDS: Senna/Docusate Sodium 8.6/50 MG Tablet PO SCH ×2 (09:18→20:26)
[2018-02-18] MEDS: QUEtiapine 25 MG Tablet PO SCH ×2 (09:18→20:25)
[2018-02-18] MEDS: Enoxaparin Inj 40 MG/0.4 ML Syringe SQ SCH (10:10)
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
--- NOTE | 2018-02-18 14:11 | P.DIET ---
Nutritional Evaluation Type of nutrition evaluation: follow-up Nutrition consult regarding: Tube Feeding Objective - Diagnosis Trauma Alert - Objective % IBW: 91 (CNH=811#) Body Weight Used for Calculations: Actual (64kg) Energy Needs - Lower Range (kCal/kg): 25 Energy Needs - Upper Range (kCal/kg): 30 Lower Limit kCal/kg (kCals): 1,600 Upper Limit kCal/kg (kCals): 1,920 Lower Limit Protein Factor (Grams per Kg): 1.1 Upper Limit Protein Factor (Grams per Kg): 1.3 Lower Protein Needs (Protein): 70 Upper Protein Needs (Protein): 83 Fluid Factor (ml/kg): 30 Estimated Fluid Needs (ml): 1,920 Dietitian Reviewed in Medical Record: Current diet, Curent medications, Intake & Output, Labs, Medical history Diet Order: Mechanical Soft, [place] Thick Liquids Oral Diet Intake Amount: Good 75-90% Objective Comments: PEG placed 02/01 Assessment Assessment: Pt advanced to a Mechanical Soft diet w/ [place] Thick liquids per ST recs. He is tolerating his diet well. His PO intake continues to improve daily. Pt had PEG placed 02/01 but this is no longer in use. Continue current POC. Consult RD if needed.
[2018-02-18] MEDS: Nystatin/Diphenhydramine/Lidocaine Mouthwash (Adult) 120 ML Botttle SWISH-SWAL SCH ×3 (15:52→20:25)
[2018-02-19] MEDS: Pantoprazole Inj 40 MG Vial IV.PUSH SCH
[2018-02-19] MEDS: Morphine Inj 4 MG/ML Vial IV.PUSH PRN ×5 (04:34→23:00)
[2018-02-19] MEDS: QUEtiapine 25 MG Tablet PO SCH ×2 (08:17→21:39)
[2018-02-19] MEDS: Sertraline 50 MG Tablet PO SCH (08:17)
[2018-02-19] MEDS: Senna/Docusate Sodium 8.6/50 MG Tablet PO SCH ×2 (08:18→21:39)
[2018-02-19] MEDS: Nystatin/Diphenhydramine/Lidocaine Mouthwash (Adult) 120 ML Botttle SWISH-SWAL SCH ×4 (08:18→21:40)
[2018-02-19] MEDS: Enoxaparin Inj 40 MG/0.4 ML Syringe SQ SCH (12:30)
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
[2018-02-20] MEDS: Pantoprazole Inj 40 MG Vial IV.PUSH SCH (01:23)
[2018-02-20] MEDS: Morphine Inj 4 MG/ML Vial IV.PUSH PRN ×6 (03:58→23:18)
[2018-02-20] MEDS: Sertraline 50 MG Tablet PO SCH (08:28)
[2018-02-20] MEDS: QUEtiapine 25 MG Tablet PO SCH ×2 (08:28→20:01)
[2018-02-20] MEDS: Senna/Docusate Sodium 8.6/50 MG Tablet PO SCH ×2 (08:28→20:01)
[2018-02-20] MEDS: Nystatin/Diphenhydramine/Lidocaine Mouthwash (Adult) 120 ML Botttle SWISH-SWAL SCH ×5 (08:35→20:01)
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
[2018-02-20] MEDS: Enoxaparin Inj 40 MG/0.4 ML Syringe SQ SCH (12:32)
[2018-02-21] MEDS: Pantoprazole Inj 40 MG Vial IV.PUSH SCH (00:44)
[2018-02-21] MEDS: Morphine Inj 4 MG/ML Vial IV.PUSH PRN ×5 (03:11→18:28)
[2018-02-21] MEDS: Sertraline 50 MG Tablet PO SCH ×2 (07:34→08:50)
[2018-02-21] MEDS: QUEtiapine 25 MG Tablet PO SCH ×3 (07:35→20:00)
[2018-02-21] MEDS: Nystatin/Diphenhydramine/Lidocaine Mouthwash (Adult) 120 ML Botttle SWISH-SWAL SCH ×6 (07:36→20:00)
[2018-02-21] MEDS: Senna/Docusate Sodium 8.6/50 MG Tablet PO SCH ×2 (08:50→20:00)
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
[2018-02-21] MEDS: Enoxaparin Inj 40 MG/0.4 ML Syringe SQ SCH (11:26)
[2018-02-22] MEDS: Morphine Inj 4 MG/ML Vial IV.PUSH PRN ×5 (00:13→18:55)
[2018-02-22] MEDS: Pantoprazole Inj 40 MG Vial IV.PUSH SCH (00:14)
[2018-02-22] MEDS: Nystatin/Diphenhydramine/Lidocaine Mouthwash (Adult) 120 ML Botttle SWISH-SWAL SCH ×4 (08:41→20:40)
[2018-02-22] MEDS: Sertraline 50 MG Tablet PO SCH (10:02)
[2018-02-22] MEDS: QUEtiapine 25 MG Tablet PO SCH ×2 (10:03→20:40)
[2018-02-22] MEDS: Senna/Docusate Sodium 8.6/50 MG Tablet PO SCH ×2 (10:03→20:41)
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
[2018-02-22] MEDS: Enoxaparin Inj 40 MG/0.4 ML Syringe SQ SCH (11:37)
[2018-02-23] MEDS: Morphine Inj 4 MG/ML Vial IV.PUSH PRN ×4 (00:06→12:03)
[2018-02-23] MEDS: Pantoprazole Inj 40 MG Vial IV.PUSH SCH (00:07)
[2018-02-23] MEDS: QUEtiapine 25 MG Tablet PO SCH ×2 (08:03→20:32)
[2018-02-23] MEDS: Sertraline 50 MG Tablet PO SCH (08:03)
[2018-02-23] MEDS: Senna/Docusate Sodium 8.6/50 MG Tablet PO SCH ×2 (08:03→20:34)
[2018-02-23] MEDS: Nystatin/Diphenhydramine/Lidocaine Mouthwash (Adult) 120 ML Botttle SWISH-SWAL SCH ×4 (08:04→20:33)
[2018-02-23] MEDS: Enoxaparin Inj 40 MG/0.4 ML Syringe SQ SCH (10:23)
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
[2018-02-24] MEDS: Pantoprazole Inj 40 MG Vial IV.PUSH SCH (00:32)
[2018-02-24] MEDS: Senna/Docusate Sodium 8.6/50 MG Tablet PO SCH ×2 (08:27→21:38)
[2018-02-24] MEDS: QUEtiapine 25 MG Tablet PO SCH ×2 (08:28→21:38)
[2018-02-24] MEDS: Sertraline 50 MG Tablet PO SCH (08:28)
[2018-02-24] MEDS: Nystatin/Diphenhydramine/Lidocaine Mouthwash (Adult) 120 ML Botttle SWISH-SWAL SCH ×4 (08:28→21:50)
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
[2018-02-24] MEDS: Enoxaparin Inj 40 MG/0.4 ML Syringe SQ SCH (11:59)
[2018-02-24] MEDS: Lidocaine 5% Patch T-DERMAL SCH (11:59)
--- NOTE | 2018-02-24 14:12 | P.DIET ---
Nutritional Evaluation Type of nutrition evaluation: follow-up Nutrition consult regarding: Diet Evaluation (Reconsulted for Calorie Count) Subjective Subjective Comments: Pt was sleeping when calorie count was posted. He did not wake up when I called his name. He had eaten 100% of his breakfast. Objective - Diagnosis Trauma Alert - Objective % IBW: 64 (MKI=221#) Body Weight Used for Calculations: Actual (64kg) Energy Needs - Lower Range (kCal/kg): 25 Energy Needs - Upper Range (kCal/kg): 30 Lower Limit kCal/kg (kCals): 1,600 Upper Limit kCal/kg (kCals): 1,920 Lower Limit Protein Factor (Grams per Kg): 1.1 Upper Limit Protein Factor (Grams per Kg): 1.3 Lower Protein Needs (Protein): 70 Upper Protein Needs (Protein): 83 Fluid Factor (ml/kg): 30 Estimated Fluid Needs (ml): 1,920 Dietitian Reviewed in Medical Record: Current diet, Curent medications, Intake & Output, Labs, Medical history Diet Order: Mechanical Soft, [place] Thick Liquids Oral Diet Intake Amount: Good 75-90% Objective Comments: PEG placed 7/30 LBM 02/23 Assessment Assessment: Reconsulted for calorie count to determine if PEG tube can be removed. Calorie count posted and will run until 02/26. Pt was sleeping and would not wake up to his name being called. Breakfast was 100% gone. Discussed w/ intensive care unit registered nurse about pts significant wt discrepancies and requested an updated weight w/ a standing scale. I will also add Enlive TID. Dietitian following. Recommendations: 1. Calorie count running until 02/26. 2. Enlive TID. 3. services clerk and RN to obtain accurate standing scale weight. Dietitian to Monitor: Lab values, Supplement acceptance, Intake & Output, Diet tolerance, Weight change, PO Intake, Medical course
--- NOTE | 2018-02-24 16:10 | P.PNREH ---
Subjective Interval history: Patient resting comfortably in bed watching soccer on TV. Denies any pain. Cervical collar in place. Review of Systems other (As previous) Exam - Physical Examination Vital Signs / I&O: Vital Signs 02/23/18 16:00 02/23/18 20:00 02/23/18 23:50 Temperature 98.3 F 98.6 F Pulse Rate 57 L 74 61 Respiratory Rate 18 17 Blood Pressure 115/59 L 125/90 Pulse Oximetry 97 97 02/24/18 00:00 02/24/18 03:53 02/24/18 07:48 Temperature 98.2 F Pulse Rate 62 54 L 55 L Respiratory Rate 17 17 Blood Pressure 122/73 Pulse Oximetry 97 02/24/18 08:00 02/24/18 09:56 02/24/18 12:00 Temperature 97.8 F 98.0 F Pulse Rate 60 58 L Respiratory Rate 16 18 18 Blood Pressure 134/83 118/71 Pulse Oximetry 95 97 Intake & Output 02/23/18 02/24/18 02/24/18 18:59 06:59 18:59 Intake Total 720 / 720 Balance 720 / 720 Weight 45 kg Intake: Oral 720 / 720 Other: # Voids 3 3 Date of Last Bowel Movement 02/22/18 02/23/18 02/23/18 Intake & Output 02/22/18 02/23/18 02/24/18 02/25/18 06:59 06:59 06:59 06:59 Intake Total 860 / 860 600 / 600 720 / 720 Balance 860 / 860 600 / 600 720 / 720 Weight 45.3 kg 45 kg 45 kg General: No acute distress, Other (Awake and alert; cervical collar in place) Date of Last Bowel Movement: 02/23/18 Cardiovascular: No edema Skin: No rash Psychiatric: Cooperative, Appropriate mood & affect - Neurologic Orientation: oriented to: Self, Place, Time, Situation Neurologic: Speech (Clear) Motor: Right Upper Extremity (Morgue Librarian and elbow flexion 5/5; shoulder abduction 1-2 /5), Left Upper Extremity ([place]orgue Librarian 5/5; elbow flexion 3+/5; shoulder abduction 1/5) , Right Lower Extremity (5/5), Left Lower Extremity (5/5) Assessment and Plan (1) Central cord syndrome Status: Acute Code(s): S14.129A - Central cord syndrome at unspecified level of cervical spinal cord, initial encounter Qualifiers: Encounter type: subsequent encounter Qualified Code(s): S14.129D - Central cord syndrome at unspecified level of cervical spinal cord, subsequent encounter - Plan Assessment: 1. Closed head injury 2. Central cord injury with quadriparesis UE >LE 3. Impaired mobility and ADLs due to above Recommendations: 1. Physical therapy is mobilizing patient is now contact guard for transfers and ambulating 2000 feet contact guard with no device. Continue to mobilize daily. 2. Occupational Therapy addressing ADLs and SBA for feeding and maximal assistance for the remainder of self-care ADLs 3. Speech therapy has evaluated swallow and tolerating mechanical soft diet with nectar thick liquids 4. Continue Lovenox for DVT prophylaxis 5. Case management is addressing discharge planning. No family has been identified. Case management/patient are contacting friend in the community for possible assistance at discharge. Patient was homeless prior to admission. 6. Will follow while hospitalized on is appropriate at discharge
[2018-02-25] MEDS: Pantoprazole Inj 40 MG Vial IV.PUSH SCH (01:43)
[2018-02-25] MEDS: Senna/Docusate Sodium 8.6/50 MG Tablet PO SCH ×2 (08:49→22:05)
[2018-02-25] MEDS: Enoxaparin Inj 40 MG/0.4 ML Syringe SQ SCH ×2 (09:39→10:09)
[2018-02-25] MEDS: Nystatin/Diphenhydramine/Lidocaine Mouthwash (Adult) 120 ML Botttle SWISH-SWAL SCH ×4 (09:39→22:05)
[2018-02-25] MEDS: QUEtiapine 25 MG Tablet PO SCH ×2 (09:39→22:04)
[2018-02-25] MEDS: Lidocaine 5% Patch T-DERMAL SCH (09:39)
[2018-02-25] MEDS: Sertraline 50 MG Tablet PO SCH (09:39)
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
[2018-02-26] MEDS: Pantoprazole Inj 40 MG Vial IV.PUSH SCH (01:45)
[2018-02-26] MEDS: Nystatin/Diphenhydramine/Lidocaine Mouthwash (Adult) 120 ML Botttle SWISH-SWAL SCH (08:56)
[2018-02-26] MEDS: Lidocaine 5% Patch T-DERMAL SCH (08:56)
[2018-02-26] MEDS: Sertraline 50 MG Tablet PO SCH (08:57)
[2018-02-26] MEDS: QUEtiapine 25 MG Tablet PO SCH ×2 (08:57→20:17)
[2018-02-26] MEDS: Senna/Docusate Sodium 8.6/50 MG Tablet PO SCH ×2 (08:58→20:18)
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
[2018-02-26] MEDS: Enoxaparin Inj 40 MG/0.4 ML Syringe SQ SCH (10:26)
--- NOTE | 2018-02-26 15:42 | P.DIET ---
Nutritional Evaluation Type of nutrition evaluation: follow-up Nutrition consult regarding: Diet Evaluation (Reconsulted for Calorie Count) Subjective Subjective Comments: Pt seen in his room, sleeping but awakens easily. Has no c/o N/V/D/C. Has some c /o chewing 2/2 the brace, but he states it's "nothing I can't manage". Objective - Diagnosis Trauma Alert - Objective % IBW: 91 (XQT=746#) Body Weight Used for Calculations: Actual (64kg) Energy Needs - Lower Range (kCal/kg): 25 Energy Needs - Upper Range (kCal/kg): 30 Lower Limit kCal/kg (kCals): 1,600 Upper Limit kCal/kg (kCals): 1,920 Lower Limit Protein Factor (Grams per Kg): 1.1 Upper Limit Protein Factor (Grams per Kg): 1.3 Lower Protein Needs (Protein): 70 Upper Protein Needs (Protein): 83 Fluid Factor (ml/kg): 30 Estimated Fluid Needs (ml): 1,920 Dietitian Reviewed in Medical Record: Current diet, Curent medications, Intake & Output, Labs Diet Order: Mechanical Soft, [place] Thick Liquids Oral Diet Intake Amount: Good 75-90% Objective Comments: PEG placed 02/01 Feeding - Current PO Supplement Current Supplement: Ensure Enlive Current Frequency of Supplement: Three times a day Current kCals Provided by Supplement: 350 Current Protein Provided by Supplement: 20 - kCal Count Day 1 kCal Intake: 1,450 Day 1 Protein Intake: 82 Day 2 kCal Intake: 3,310 Day 2 Protein Intake: 118 Day 3 kCal Intake: 1,690 Day 3 Protein Intake: 80 kCal Comments: Pt's PO intake is very good. He is meeting his nutritional requirements via PO intake alone. Assessment Assessment: Completed calorie count shows pt is meeting and oftentimes exceeding his nutritional requirements. He denies N/V/D/C. Denies trouble chewing/swallowing ( sometimes chewing r/t the brace). Likes the Enlive and is agreeable to continuing. Confirmed pts UBW as 160#. Updated wt is 140# and this is more accurate to what pt visibly looks like for his wt. Discussed w/ Nick VIGIL saying it's okay to remove PEG as pt is currently meeting his nutritional requirements. Continue current POC. Consult RD if needed. Recommendations: 1. Okay to d/c PEG as pt is currently meeting his nutritional requirements via PO intake alone. 2. Consult RD if needed.
--- NOTE | 2018-02-26 20:13 | XR ---
EXAM DATE: 02/26/2018 8:09 PM EDT AGE/SEX: 62 years / Male INDICATIONS: . Shortness of breath. CLINICAL DATA: This is the patient's initial encounter. Patient reports that signs and symptoms have been present for 1 day and indicates a pain score of 0/10. MEDICAL/SURGICAL HISTORY: None. None. COMPARISON: [facility] – [place], CHEST 1V SINGLE AP, 01/25/2018. . FINDINGS: AP and lateral views of the chest demonstrate the lungs to be symmetrically aerated without evidence of mass, infiltrate or effusion. The cardiomediastinal contours are unremarkable. Osseous structure s are intact. CONCLUSION: No acute cardiopulmonary disease. Electronically signed by: Guru Becker MD 02/26/2018 8:12 PM EDT
[2018-02-27] MEDS: Pantoprazole Inj 40 MG Vial IV.PUSH SCH (01:19)
[2018-02-27] MEDS: Lidocaine 5% Patch T-DERMAL SCH (08:40)
[2018-02-27] MEDS: Sertraline 50 MG Tablet PO SCH (08:40)
[2018-02-27] MEDS: Senna/Docusate Sodium 8.6/50 MG Tablet PO SCH ×2 (08:40→20:17)
[2018-02-27] MEDS: QUEtiapine 25 MG Tablet PO SCH ×2 (08:40→20:17)
[2018-02-27] MEDS: Enoxaparin Inj 40 MG/0.4 ML Syringe SQ SCH (11:20)
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
--- NOTE | 2018-02-27 20:58 | P.PNGI ---
Subjective Interval history: Laying comfortably in bed tolerating oral intake requesting PEG tube removal Physical Exam Vital signs: Vital Signs 02/27/18 00:00 02/27/18 04:00 02/27/18 08:00 Temperature 98.1 F 98.1 F 97.6 F Pulse Rate 60 56 L 50 L Respiratory Rate 18 18 18 Blood Pressure 119/77 114/72 103/69 Pulse Oximetry 97 95 97 02/27/18 10:31 02/27/18 11:49 02/27/18 12:00 Temperature 97.9 F Pulse Rate 48 L 18 L Respiratory Rate 18 59 H Blood Pressure 102/69 Pulse Oximetry 95 02/27/18 16:00 02/27/18 17:46 Temperature 98.3 F Pulse Rate 56 L Respiratory Rate 18 18 Blood Pressure 118/79 Pulse Oximetry 97 Intake & Output 02/27/18 02/27/18 02/28/18 06:59 18:59 06:59 Intake Total 200 / 200 960 / 960 Output Total 500 / 500 Balance 200 / 200 460 / 460 Weight 45.3 kg Intake: Oral 200 / 200 960 / 960 Output: Urine 500 / 500 Other: # Voids 2 3 Date of Last Bowel Movement 02/26/18 02/26/18 # Bowel Movements 1 - Constitutional no acute distress - Routine HEENT Exam Head: Present: normocephalic Eye: Present: EOMI ENT: Present: mucous membranes moist - Routine Neck Exam Present: supple - Routine Respiratory Exam Present: CTA bilaterally - Routine Cardiovascular Exam Present: RRR - Routine Abdominal Exam Present: soft, normoactive bowel sounds. Absent: tenderness - Urinary Catheter Management Condom Cath placed during this visit: no Indwelling Urethral Catheter Cath placed during this visit: yes, but has since been removed by the nurse Reason for continuing: Hourly intake/output Insertion date: 01/25/18 Removal date: 01/28/18 Removal time: 10:00 Results - Labs CBC & Chem 7: 02/17/18 06:40 02/02/18 03:41 Assessment and Plan - Plan Patient had a PEG tube placed back in late January He is no longer requesting or needing PEG tube feeding PEG site appeared to be clean and the PEG tube was pulled out with ease a clean dressing was placed Patient advised to be n.p.o. for 2 hours We will sign off
[2018-02-28] MEDS: Pantoprazole Inj 40 MG Vial IV.PUSH SCH (00:22)
[2018-02-28] MEDS: QUEtiapine 25 MG Tablet PO SCH ×2 (09:17→20:16)
[2018-02-28] MEDS: Sertraline 50 MG Tablet PO SCH (09:17)
[2018-02-28] MEDS: Lidocaine 5% Patch T-DERMAL SCH (09:17)
[2018-02-28] MEDS: Senna/Docusate Sodium 8.6/50 MG Tablet PO SCH ×2 (09:21→20:17)
[2018-02-28] MEDS: Enoxaparin Inj 40 MG/0.4 ML Syringe SQ SCH (12:08)
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
[2018-03-01] MEDS: Pantoprazole Inj 40 MG Vial IV.PUSH SCH (00:40)
[2018-03-01] MEDS: Senna/Docusate Sodium 8.6/50 MG Tablet PO SCH ×2 (08:18→20:03)
[2018-03-01] MEDS: Sertraline 50 MG Tablet PO SCH (08:18)
[2018-03-01] MEDS: Lidocaine 5% Patch T-DERMAL SCH (08:18)
[2018-03-01] MEDS: QUEtiapine 25 MG Tablet PO SCH ×2 (08:18→20:03)
[2018-03-01] MEDS: Enoxaparin Inj 40 MG/0.4 ML Syringe SQ SCH (11:18)
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
[2018-03-02] MEDS: Pantoprazole Inj 40 MG Vial IV.PUSH SCH (00:21)
[2018-03-02] MEDS: QUEtiapine 25 MG Tablet PO SCH ×2 (08:32→21:02)
[2018-03-02] MEDS: Senna/Docusate Sodium 8.6/50 MG Tablet PO SCH ×2 (08:32→21:02)
[2018-03-02] MEDS: Lidocaine 5% Patch T-DERMAL SCH (08:32)
[2018-03-02] MEDS: Sertraline 50 MG Tablet PO SCH (08:32)
[2018-03-02] MEDS: Enoxaparin Inj 40 MG/0.4 ML Syringe SQ SCH (12:09)
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
--- NOTE | 2018-03-02 21:04 | MR ---
EXAM DATE: 03/02/2018 8:53 PM EDT AGE/SEX: 62 years / Male INDICATIONS: . Right upper extremity flaccid. CLINICAL DATA: This is the patient's subsequent encounter. Patient reports that signs and symptoms h ave been present for 1 month and indicates a pain score of 0/10. MEDICAL/SURGICAL HISTORY: None. None. COMPARISON: . TECHNIQUE: Multiplanar, multisequence MRI examination of the cervical spine was performed without co ntrast. FINDINGS: There is straightening of the normal cervical lordosis. Mild cervical spondylosis and degenerative di sc disease are noted at C4-C5, C5-6 and C6-7. No acute fracture or prevertebral soft tissue swelling is noted. C2-C3: The thecal sac has a normal configuration. There is no evidence of disc herniation or spinal canal stenosis. The neural foramina are patent bilaterally. C3-C4: Minimal diffuse disc bulge is noted. There is no spinal stenosis or neuroforaminal narrowing. No focal disc herniation is noted. C4-C5: Minimal diffuse disc bulge is noted. Mild bilateral foraminal narrowing is noted. No spinal s tenosis is noted. No focal disc herniation is noted. C5-C6: Mild spinal stenosis and bilateral foraminal narrowing are noted secondary to diffuse disc bu lge and facet joint hypertrophy bilaterally. No focal disc herniation is noted. C6-C7: Mild spinal stenosis and bilateral foraminal narrowing are noted secondary to diffuse disc bu lge and facet joint hypertrophy bilaterally. No focal disc herniation is noted. C7-T1: No epidural impressions seen. CONCLUSION: 1. Spinal stenosis and bilateral foraminal narrowing at C5-6 and C6-7. 2. Mild bilateral foraminal narrowing at C4-5. 3. Degenerative disc disease at C4-5, C5-6, C6-7 and to a lesser extent at C3-4. 4. Straightening of the normal cervical lordosis. Electronically signed by: Kendrick Zazueta MD 03/02/2018 9:03 PM EDT
[2018-03-03] MEDS: Pantoprazole Inj 40 MG Vial IV.PUSH SCH (00:30)
[2018-03-03 06:51] LABS: Baso % (Auto) 1.1 % (0.0-2.0); Eos # (Auto) 0.2 th/mm3 (0.0-0.4); Eos % (Auto) 3.3 % (0.0-4.0); Hematocrit 32.8 % (39.0-51.0); Lymph # (Auto) 1.3 th/mm3 (1.0-4.8); Lymph % (Auto) 28.4 % (9.0-44.0); Mean Corpuscular HGB Conc 33.6 % (32.0-36.0); Mean Corpuscular Hemoglobin 30.4 pg (27.0-34.0); Mean Corpuscular Volume 90.3 fL (80.0-100.0); Mean Platelet Volume 8.9 fL (7.0-11.0); Mono # (Auto) 0.4 th/mm3 (0.0-0.9); Mono % (Auto) 9.5 % (0.0-8.0); Neut # (Auto) 2.6 th/mm3 (1.8-7.7); Neut % (Auto) 57.7 % (16.0-70.0); Platelet Count 206 th/mm3 (150-450); Red Blood Count 3.64 mil/mm3 (4.50-5.90); White Blood Count 4.5 th/mm3 (4.0-11.0)
[2018-03-03 07:08] LABS: Albumin 3.2 g/dL (3.4-5.0); Anion Gap 9 meq/L (5-15); Aspartate Aminotransferase 20 U/L (15-37); Blood Urea Nitrogen 25 mg/dL (7-18); Calcium 9.1 mg/dL (8.5-10.1); Carbon Dioxide 28.2 meq/L (21.0-32.0); Chloride 106 meq/L (98-107); Glomerular Filtration Rate Greater Than 89 mL/min (>89); Glucose,Random 86 mg/dL (74-106); Sodium 143 meq/L (136-145)
[2018-03-03 07:12] LABS: Alanine Aminotransferase 87 U/L (12-78); Alkaline Phosphatase 93 U/L (45-117); Total Protein 6.7 g/dL (6.4-8.2)
[2018-03-03] MEDS: Sertraline 50 MG Tablet PO SCH (08:30)
[2018-03-03] MEDS: Lidocaine 5% Patch T-DERMAL SCH (08:31)
[2018-03-03] MEDS: Senna/Docusate Sodium 8.6/50 MG Tablet PO SCH ×2 (08:31→21:25)
[2018-03-03] MEDS: QUEtiapine 25 MG Tablet PO SCH ×2 (08:31→21:27)
[2018-03-03] MEDS: Enoxaparin Inj 40 MG/0.4 ML Syringe SQ SCH (12:05)
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
[2018-03-04] MEDS: Pantoprazole Inj 40 MG Vial IV.PUSH SCH (00:28)
[2018-03-04] MEDS: Lidocaine 5% Patch T-DERMAL SCH (10:03)
[2018-03-04] MEDS: Sertraline 50 MG Tablet PO SCH (10:04)
[2018-03-04] MEDS: Senna/Docusate Sodium 8.6/50 MG Tablet PO SCH ×2 (10:04→21:43)
[2018-03-04] MEDS: QUEtiapine 25 MG Tablet PO SCH ×2 (10:04→21:43)
[2018-03-04] MEDS: Enoxaparin Inj 40 MG/0.4 ML Syringe SQ SCH (11:17)
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
[2018-03-05] MEDS: Pantoprazole Inj 40 MG Vial IV.PUSH SCH (01:11)
[2018-03-05] MEDS: QUEtiapine 25 MG Tablet PO SCH ×2 (08:21→21:14)
[2018-03-05] MEDS: Lidocaine 5% Patch T-DERMAL SCH (08:21)
[2018-03-05] MEDS: Sertraline 50 MG Tablet PO SCH (08:21)
[2018-03-05] MEDS: Senna/Docusate Sodium 8.6/50 MG Tablet PO SCH ×2 (08:21→21:18)
[2018-03-05] MEDS: Enoxaparin Inj 40 MG/0.4 ML Syringe SQ SCH (11:57)
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
[2018-03-06] MEDS: Pantoprazole Inj 40 MG Vial IV.PUSH SCH (01:08)
[2018-03-06] MEDS: Lidocaine 5% Patch T-DERMAL SCH ×2 (07:39→09:05)
[2018-03-06] MEDS: QUEtiapine 25 MG Tablet PO SCH ×3 (07:39→20:17)
[2018-03-06] MEDS: Senna/Docusate Sodium 8.6/50 MG Tablet PO SCH ×3 (07:39→20:17)
[2018-03-06] MEDS: Sertraline 50 MG Tablet PO SCH ×2 (07:39→09:04)
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
[2018-03-07] MEDS: Pantoprazole Inj 40 MG Vial IV.PUSH SCH (00:16)
[2018-03-07] MEDS: Sertraline 50 MG Tablet PO SCH (08:21)
[2018-03-07] MEDS: Lidocaine 5% Patch T-DERMAL SCH (08:22)
[2018-03-07] MEDS: QUEtiapine 25 MG Tablet PO SCH ×2 (08:22→20:45)
[2018-03-07] MEDS: Senna/Docusate Sodium 8.6/50 MG Tablet PO SCH ×2 (08:22→20:46)
[2018-03-07] MEDS: Pantoprazole Sodium 20 MG DR Tablet PO SCH (09:15)
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
[2018-03-08 08:30] LABS: Baso % (Auto) 1.1 % (0.0-2.0); Eos # (Auto) 0.1 th/mm3 (0.0-0.4); Eos % (Auto) 2.9 % (0.0-4.0); Hemoglobin 12.7 gm/dL (13.0-17.0); Lymph # (Auto) 1.4 th/mm3 (1.0-4.8); Lymph % (Auto) 30.8 % (9.0-44.0); Mean Corpuscular HGB Conc 32.6 % (32.0-36.0); Mean Corpuscular Hemoglobin 29.5 pg (27.0-34.0); Mean Corpuscular Volume 90.5 fL (80.0-100.0); Mean Platelet Volume 8.9 fL (7.0-11.0); Mono # (Auto) 0.5 th/mm3 (0.0-0.9); Mono % (Auto) 10.5 % (0.0-8.0); Neut # (Auto) 2.5 th/mm3 (1.8-7.7); Neut % (Auto) 54.7 % (16.0-70.0); Platelet Count 246 th/mm3 (150-450); Red Blood Count 4.31 mil/mm3 (4.50-5.90); Red Cell Distribution Width 15.9 % (11.6-17.2); White Blood Count 4.5 th/mm3 (4.0-11.0)
[2018-03-08 08:45] LABS: Anion Gap 9 meq/L (5-15); Blood Urea Nitrogen 22 mg/dL (7-18); Calcium 9.2 mg/dL (8.5-10.1); Carbon Dioxide 30.1 meq/L (21.0-32.0); Chloride 104 meq/L (98-107); Glomerular Filtration Rate Greater Than 89 mL/min (>89); Glucose,Random 73 mg/dL (74-106); Potassium 3.8 meq/L (3.5-5.1); Sodium 143 meq/L (136-145)
[2018-03-08] MEDS: Lidocaine 5% Patch T-DERMAL SCH (08:58)
[2018-03-08] MEDS: QUEtiapine 25 MG Tablet PO SCH ×2 (08:59→20:42)
[2018-03-08] MEDS: Senna/Docusate Sodium 8.6/50 MG Tablet PO SCH ×2 (08:59→20:41)
[2018-03-08] MEDS: Pantoprazole Sodium 20 MG DR Tablet PO SCH (08:59)
[2018-03-08] MEDS: Sertraline 50 MG Tablet PO SCH (08:59)
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
[2018-03-09] MEDS: Lidocaine 5% Patch T-DERMAL SCH (09:44)
[2018-03-09] MEDS: Senna/Docusate Sodium 8.6/50 MG Tablet PO SCH ×2 (09:45→20:00)
[2018-03-09] MEDS: QUEtiapine 25 MG Tablet PO SCH ×2 (09:45→20:00)
[2018-03-09] MEDS: Sertraline 50 MG Tablet PO SCH (09:45)
[2018-03-09] MEDS: Pantoprazole Sodium 20 MG DR Tablet PO SCH (09:45)
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
[2018-03-10] MEDS: Sertraline 50 MG Tablet PO SCH (10:54)
[2018-03-10] MEDS: QUEtiapine 25 MG Tablet PO SCH ×2 (10:55→20:18)
[2018-03-10] MEDS: Lidocaine 5% Patch T-DERMAL SCH (10:56)
[2018-03-10] MEDS: Pantoprazole Sodium 20 MG DR Tablet PO SCH (10:56)
[2018-03-10] MEDS: Senna/Docusate Sodium 8.6/50 MG Tablet PO SCH ×2 (10:56→20:20)
[2018-03-11] MEDS: Senna/Docusate Sodium 8.6/50 MG Tablet PO SCH ×2 (09:33→20:58)
[2018-03-11] MEDS: Sertraline 50 MG Tablet PO SCH (09:33)
[2018-03-11] MEDS: QUEtiapine 25 MG Tablet PO SCH ×2 (09:33→20:58)
[2018-03-11] MEDS: Pantoprazole Sodium 20 MG DR Tablet PO SCH (09:33)
[2018-03-11] MEDS: Lidocaine 5% Patch T-DERMAL SCH (09:33)
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
[2018-03-12] MEDS: Sertraline 50 MG Tablet PO SCH (08:31)
[2018-03-12] MEDS: Pantoprazole Sodium 20 MG DR Tablet PO SCH (08:32)
[2018-03-12] MEDS: Senna/Docusate Sodium 8.6/50 MG Tablet PO SCH ×2 (08:32→20:54)
[2018-03-12] MEDS: Lidocaine 5% Patch T-DERMAL SCH (08:32)
[2018-03-12] MEDS: QUEtiapine 25 MG Tablet PO SCH ×2 (08:32→20:54)
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
[2018-03-13] MEDS: Senna/Docusate Sodium 8.6/50 MG Tablet PO SCH (09:50)
[2018-03-13] MEDS: Sertraline 50 MG Tablet PO SCH (09:50)
[2018-03-13] MEDS: Lidocaine 5% Patch T-DERMAL SCH (09:50)
[2018-03-13] MEDS: QUEtiapine 25 MG Tablet PO SCH ×2 (09:50→21:21)
[2018-03-13] MEDS: Pantoprazole Sodium 20 MG DR Tablet PO SCH (09:50)
[2018-03-13] MEDS ORDERED: Senna/Docusate Sodium 8.6/50 MG Tablet PO ONE (16:30)
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
[2018-03-14] MEDS: QUEtiapine 25 MG Tablet PO SCH ×2 (08:48→22:35)
[2018-03-14] MEDS: Lidocaine 5% Patch T-DERMAL SCH (08:48)
[2018-03-14] MEDS: Sertraline 50 MG Tablet PO SCH (08:48)
[2018-03-14] MEDS: Pantoprazole Sodium 20 MG DR Tablet PO SCH (08:48)
--- NOTE | 2018-03-14 13:04 | P.EN ---
Notified by nursing that patient informed her that he fell yesterday evening and since then has had some right arm pain. The patient reportedly got out of bed in the night and tripped at the foot of the bed causing him to fall over prone. He reports he extended his right arm to brace himself. Since then, he states he has noticed a bulge in his right upper arm that he hadn't previously noticed. He also told his nurse that he had heard a "pop" from his arm when he fell onto it. He endorses chronic right shoulder pain but states it seems to be worse now anteriorly. Furthermore, the tenderness around the 'lump' is new. Denies any bony elbow pain. He did not hit his head or lose consciousness. On exam, the patient has a palpable bulge that increases with flexion of the arm. The mass is soft and diminishes in size when the arm is extended. It is tender to touch. There is no overlying erythema or bruising. He does have some mild TTP along his bicipital groove but he is also tender around his posterior right shoulder. A/P: The patient is somewhat of a poor historian and it is difficult actually ascertaining when the 'bulge' first appeared and whether its appearance is truly traumatic. It has the consistency of a lipoma but it also increases with biceps flexion and it is tender to touch which could also represent a biceps tendon rupture if it was truly traumatic and occurred upon falling yesterday evening. Will obtain an ultrasound to try and further classify. If it has the appearance of a lipoma then the management is conservative otherwise we will consider consulting ortho to further eval. In the time being, will apply ice, wrap in GATO compression, and avoid exercising that arm, which is problematic given his current situation of needing aggressive rehabilitation to be discharged from the hospital. Further decision making based on u/s results.
[2018-03-14] MEDS: Ibuprofen 600 MG Tablet PO SCH ×2 (14:00→22:35)
--- NOTE | 2018-03-14 16:48 | US ---
EXAM DATE: 03/14/2018 4:41 PM EDT AGE/SEX: 62 years / Male INDICATIONS: The patient fell and has focal soft tissue swelling. Please evaluate for possible fluid collection. CLINICAL DATA: This is the patient's initial encounter. Patient reports that signs and symptoms have been present for 1 day and indicates a pain score of 0/10. MEDICAL/SURGICAL HISTORY: None. Appendectomy. COMPARISON: No prior exams available for comparison. FINDINGS: A targeted ultrasound examination was performed in the area of clinical concern and swelling. There i s no focal abnormality. There is no fluid collection or mass. CONCLUSION: 1. Negative exam with no focal abnormality. There is no fluid collection. Electronically signed by: Anthony Funes MD 03/14/2018 4:47 PM EDT
[2018-03-15] MEDS: Ibuprofen 600 MG Tablet PO SCH ×3 (06:00→21:10)
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
[2018-03-15] MEDS: Lidocaine 5% Patch T-DERMAL SCH (08:07)
[2018-03-15] MEDS: Sertraline 50 MG Tablet PO SCH (08:08)
[2018-03-15] MEDS: QUEtiapine 25 MG Tablet PO SCH ×2 (08:09→21:10)
[2018-03-15] MEDS: Pantoprazole Sodium 20 MG DR Tablet PO SCH (08:09)
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
[2018-03-16] MEDS: Ibuprofen 600 MG Tablet PO SCH ×2 (05:46→14:00)
[2018-03-16] MEDS: Sertraline 50 MG Tablet PO SCH (08:40)
[2018-03-16] MEDS: QUEtiapine 25 MG Tablet PO SCH ×2 (08:40→20:20)
[2018-03-16] MEDS: Lidocaine 5% Patch T-DERMAL SCH (08:40)
[2018-03-16] MEDS: Pantoprazole Sodium 20 MG DR Tablet PO SCH (08:40)
[2018-03-16] MEDS ORDERED: Furosemide 40 MG Tablet PO ONE ×2 (14:03→15:00)
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
[2018-03-17 07:11] LABS: Anion Gap 5 meq/L (5-15); Blood Urea Nitrogen 29 mg/dL (7-18); Calcium 8.7 mg/dL (8.5-10.1); Carbon Dioxide 34.3 meq/L (21.0-32.0); Chloride 103 meq/L (98-107); Glomerular Filtration Rate Greater Than 89 mL/min (>89); Glucose,Random 88 mg/dL (74-106); Potassium 4.1 meq/L (3.5-5.1); Sodium 142 meq/L (136-145)
[2018-03-17] MEDS: Pantoprazole Sodium 20 MG DR Tablet PO SCH (09:14)
[2018-03-17] MEDS: QUEtiapine 25 MG Tablet PO SCH ×2 (09:14→21:09)
[2018-03-17] MEDS: Sertraline 50 MG Tablet PO SCH (09:14)
--- NOTE | 2018-03-17 12:28 | ECHRPT ---
Indication: HEART FAILURE CONCLUSIONS The left ventricular systolic function is normal with an estimated ejection fraction in the range of 55-60%. Normal left ventricular size. Wall thickness is normal. No regional wall motion abnormalities are present. Trace mitral valve regurgitation. Slight aortic valve sclerosis is present. Trace aortic valve regurgitation. There is trace tricuspid valve regurgitation. The estimated pulmonary arterial pressure is 27 mmHg. BP: / HR: Rhythm: Sinus MEASUREMENTS (Male / Female) Normal Values Technical Quality:Good 2D ECHO LV Diastolic Diameter PLAX 4.4 cm 4.2 - 5.9 / 3.9 - 5.3 cm LV Systolic Diameter PLAX 3.2 cm IVS Diastolic Thickness 1.1 cm 0.6 - 1.0 / 0.6 - 0.9 cm LVPW Diastolic Thickness 1.1 cm 0.6 - 1.0 / 0.6 - 0.9 cm LV Relative Wall Thickness 0.5 RV Internal Dim ED PLAX 2.9 cm LVOT Diameter 2.0 cm LA Systolic Diameter LX 3.7 cm 3.0 - 4.0 / 2.7 - 3.8 cm LV Ejection Fraction MOD 4C 62.1 % LV Ejection Fraction 4C AL 67.3 % M-MODE Aortic Root Diameter MM 2.6 cm LA Systolic Diameter MM 3.6 cm LA Ao Ratio MM 1.4 AV Cusp Separation MM 2.2 cm DOPPLER AV Peak Velocity 145.0 cm/s AV Peak Gradient 8.4 mmHg AI Peak Velocity 264.0 cm/s AI Peak Gradient 27.9 mmHg AI Pressure Half Time 926.5 ms LVOT Peak Velocity 118.0 cm/s LVOT Peak Gradient 5.6 mmHg AV Area Cont Eq pk 2.6 cm MV Area PHT 4.2 cm Mitral E Point Velocity 74.0 cm/s Mitral A Point Velocity 74.5 cm/s Mitral E to A Ratio 1.0 LV E' Lateral Velocity 10.3 cm/s Mitral E to LV E' Lateral Ratio 7.2 LV E' Septal Velocity 8.8 cm/s Mitral E to LV E' Septal Ratio 8.4 TR Peak Velocity 210.0 cm/s TR Peak Gradient 17.6 mmHg Right Atrial Pressure 10.0 mmHg Pulmonary Artery Systolic Pressu 27.6 mmHg Right Ventricular Systolic Press 27.6 mmHg PV Peak Velocity 136.0 cm/s PV Peak Gradient 7.4 mmHg FINDINGS LEFT VENTRICLE The left ventricular systolic function is normal with an estimated ejection fraction in the range of 55-60%. Normal left ventricular size. Wall thickness is normal. No regional wall motion abnormalities are present. RIGHT VENTRICLE Normal right ventricular size and systolic function. LEFT ATRIUM The left atrial size is normal. RIGHT ATRIUM The right atrial size is normal. ATRIAL SEPTUM Normal atrial septal thickness without atrial level shunting by limited color doppler interrogation. AORTA The aortic root and proximal ascending aorta are normal in size on limited imaging. MITRAL VALVE Structurally normal mitral valve. Trace mitral valve regurgitation. AORTIC VALVE Trileaflet aortic valve. Slight aortic valve sclerosis is present. Trace aortic valve regurgitation. TRICUSPID VALVE Structurally normal tricuspid valve. There is trace tricuspid valve regurgitation. The estimated pulmonary arterial pressure is 27 mmHg. PULMONARY VALVE No pulmonary valve regurgitation or stenosis. VESSELS The inferior vena cava is normal in size. PERICARDIUM No pericardial effusion. Willy Kennedy MD (Electronically Signed) Final Date:17 March 2018 12:28
[2018-03-17] MEDS: Lidocaine 5% Patch T-DERMAL SCH (13:02)
[2018-03-17] MEDS ORDERED: Furosemide 40 MG Tablet PO ONE (13:09)
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
[2018-03-18] MEDS: Sertraline 50 MG Tablet PO SCH (09:23)
[2018-03-18] MEDS: Pantoprazole Sodium 20 MG DR Tablet PO SCH (09:24)
[2018-03-18] MEDS: Lidocaine 5% Patch T-DERMAL SCH (09:24)
[2018-03-18] MEDS: QUEtiapine 25 MG Tablet PO SCH ×2 (09:24→20:39)
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
--- NOTE | 2018-03-18 14:01 | P.DCO ---
- Diagnosis (1) Rupture of right biceps tendon (2) Left scapula fracture - Occupational Therapy Order: Evaluate and treat Instructions: 3x weekly - Home Health Aide Order: To assist in: Bathing and personal care Instructions: 3x weekly - Certification I have seen patient Cachorro Quinones on 03/18/18. My clinical findings support the need for the requested home health care services because: Limited ability to care for self I certify that my clinical findings support that this patient is homebound because: Unsafe to leave home unassisted (1) Rupture of right biceps tendon Qualifiers: Encounter type: initial encounter Qualified Code(s): S46.211A - Strain of muscle, fascia and tendon of other parts of biceps, right arm, initial encounter (2) Left scapula fracture Qualifiers: Encounter type: initial encounter Scapula location: unspecified part of scapula Fracture type: closed Qualified Code(s): S42.102A - Fracture of unspecified part of scapula, left shoulder, initial encounter for closed fracture
[2018-03-19] MEDS: Sertraline 50 MG Tablet PO SCH (09:39)
[2018-03-19] MEDS: Pantoprazole Sodium 20 MG DR Tablet PO SCH (09:39)
[2018-03-19] MEDS: Lidocaine 5% Patch T-DERMAL SCH (09:39)
[2018-03-19] MEDS: QUEtiapine 25 MG Tablet PO SCH (09:40)
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
[2018-03-19 12:08] VITALS: RESP 20
[2018-03-19 12:21] VITALS: BP 123/80; PULSE 90; TEMP 97.9; O2SAT 97
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
== END 2018-03-19 14:26 ==
LOC: NEPI 22:42 → MERGE 23:10 → EDBD 23:10 → NEDA 23:10 → N03 23:24 → N06 01-28 17:41 → H7ONC 03-07 16:21
PROVIDERS: ADMIT Family Medicine; ATTEND Family Medicine
PROC: PANENDO (2018-02-01 11:05)